=== PATIENT | male | born 1950 | race Caucasian/White ===

== ENCOUNTER → 2016-05-23 | Outpatient (REF) | payer MEDICARE, OTHER ==
[~2016-05-23] MED LIST: ACET-654 PO; ALBU83IN INH; ALLO300T2 PO; ASPI32ECTA PO; ATAC16TA PO; ATEN25TA OR; ATEN25TA PO; ATOR1TAB21 PO; BENA25CA2 PO; BENA25CA4 PO; BISAC5TA PO; COLC0.6T34 PO; ECOT325T5 OR; FLEC100T2 PO; FLEC1TAB PO; FLEC50TA2 OR; LIPI20TA PO; NEXI40CA PO; PRED20TA PO; PRIL20CA9 PO; SPIR25TA2 PO; SUCR1TA PO; XARE20TA PO; ZANT150T PO; ZOFR8TAB PO; ZYLO300T4 PO
[2016-05-23 14:17] LABS: MICROSCOPIC INDICATED? MAN NO (NO)
== END | disposition home or self-care (01) ==
LOC: M LAB REF 13:26
PROVIDERS: ATTEND Internal Medicine Cardiovascular Disease
DX: I11.9 Hypertensive heart disease without heart failure (principal)

== ENCOUNTER → 2016-06-13 | Day surgery (SDC) | payer MEDICARE, OTHER ==
[~2016-06-13] VITALS: Ht 172.7 cm; Wt 117.9 kg
[~2016-06-13] MED LIST changes: +ACETAMINOPHEN 325 MG TAB PO PRN; +ACETYLCHOLINE OPHTH SOLN 1% 2ML As Ordered ONE; +AcetaZOLAMIDE 500 MG ER CAP PO ONE; +BSS with VANC/TOB/EPI for EYE CASES IR ONE; +CEFUROXIME 1MG/0.1ML INTRACAMERAL INJ As Ordered ONE; +CYCLOPENTOLATE 2% OPHTH SOLN OD ONE; +D5W/0.2% SODIUM CHLORIDE 250 ML IV SCH; +HEALON DUET (HEALON 10MG/ML 0.55ML & HEALON ENDOCOAT 30MG/ML 0.85ML) As Ordered ONE; +HEALON DUET (HEALON 10MG/ML 0.55ML & HEALON ENDOCOAT 30MG/ML 0.85ML) XX ONE; +KETOROLAC 0.5% OPHTH SOLN OD ONE; +LIDOCAINE 0.75%/EPINEPHRINE 0.025% IN BSS 1ML SYR INTRACAMERAL (OR ONLY) As Ordered ONE; +LIDOCAINE 1% SDV 5 ML VIAL As Ordered ONE; +LIDOCAINE 1% SDV 5 ML VIAL XX ONE; +LIDOCAINE 4% INJ 5 ML AMP OU ONE; +MIDAZOLAM INJ 2 MG/2 ML VIAL (J2250) As Ordered ONE; +MOXIFLOXACIN IN BSS 0.25MG/0.25ML INTRACAMERAL INJ (OR EYE ONLY)(J2280) As Ordered ONE; +MOXIFLOXACIN IN BSS 0.25MG/0.25ML INTRACAMERAL INJ (OR EYE ONLY)(J2280) ICAM ONE; +OFLOXACIN 0.3 % (OCUFLOX) OPTH SOL 5ML OD ONE; +PHENYLEPHRINE 2.5% OPHTH SOL 2ML OD ONE; +POVIDONE-IODINE 5% OPHTH PREP SOL 30ML As Ordered ONE; +PROPARACAINE 0.5% OPHTH SOL 15ML OD PRN; +TRIAMCINOLONE PRES FR 40 MG/ML 1ML(TRIESENCE)(OR EYE ONLY)(J3300 PER 1MG) As Ordered ONE; +TRIAMCINOLONE PRES FR 40 MG/ML 1ML(TRIESENCE)(OR EYE ONLY)(J3300 PER 1MG) IO ONE; +TRIMETHOBENZAMIDE 300 MG CAP PO PRN; +TROPICAMIDE 1% OPHTH SOLN 2 ML OD ONE; +fentaNYL 100 MCG/2 ML INJECTION (J3010) As Ordered ONE
[2016-06-13 08:35] VITALS: BP 120/62
--- NOTE | 2016-06-13 13:40 | RO ---
DATE OF PROCEDURE: 06/13/2016 PREPROCEDURE DIAGNOSIS: Glare in right eye. POSTPROCEDURE DIAGNOSIS: Glare in right eye. PROCEDURE: IOL lens exchange, right eye. SURGEON: Kyle Mendes MD MEDICAL INFORMATION OFFICER: None. COMPLICATIONS: None. PROCEDURE IN DETAIL: The patient was brought to the operating room and laid in supine position. The right eye was prepped and draped in a sterile fashion for opthalmic surgery and the lid speculum was placed. Side port incision was made and EndoCoat was injected into the anterior chamber. Temporal clear corneal incision was made with a 2.5 mm Keratome and was extended to 2.7. Healon was used slowly to create a plane of cleavage between the anterior and posterior capsule and behind the lens and the posterior capsule. Once that was accomplished, the eyeball was rotated within the capsular bag gently and then prolapsed into the anterior chamber. With the help of the lens curette, the lens was divided into two pieces and retracted from the temporal clear corneal incision. Healon was placed in the capsular bag and the intraocular lens PCB00 +21.0 was then placed into the capsular bag. Excess viscoelastic was aspirated. The lid speculum was removed, and the patient was returned to the recovery room in stable condition after putting intracameral moxifloxacin 0.1 mL and subtenon injection of Kenalog.
== END | disposition home or self-care (01) ==
LOC: M SDC 06:05
PROVIDERS: ATTEND Ophthalmology
DX: H53.71 Glare sensitivity (principal); I48.91 Unspecified atrial fibrillation; E78.5 Hyperlipidemia, unspecified; M10.9 Gout, unspecified; F32.9 Major depressive disorder, single episode, unspecified; F41.9 Anxiety disorder, unspecified; R06.83 Snoring; G47.33 Obstructive sleep apnea (adult) (pediatric); Z79.899 Other long term (current) drug therapy
CPT/HCPCS: 66986; J2250; J2280; J3010; J3300; V2632

== ENCOUNTER → 2016-11-15 | Outpatient (CLI) | payer MEDICARE, OTHER ==
[~2016-11-15] MED LIST changes: -ACETAMINOPHEN 325 MG TAB PO PRN; -ACETYLCHOLINE OPHTH SOLN 1% 2ML As Ordered ONE; +ASPI325T24 PO; -ASPI32ECTA PO; -AcetaZOLAMIDE 500 MG ER CAP PO ONE; -BSS with VANC/TOB/EPI for EYE CASES IR ONE; -CEFUROXIME 1MG/0.1ML INTRACAMERAL INJ As Ordered ONE; -CYCLOPENTOLATE 2% OPHTH SOLN OD ONE; -D5W/0.2% SODIUM CHLORIDE 250 ML IV SCH; -HEALON DUET (HEALON 10MG/ML 0.55ML & HEALON ENDOCOAT 30MG/ML 0.85ML) As Ordered ONE; -HEALON DUET (HEALON 10MG/ML 0.55ML & HEALON ENDOCOAT 30MG/ML 0.85ML) XX ONE; -KETOROLAC 0.5% OPHTH SOLN OD ONE; -LIDOCAINE 0.75%/EPINEPHRINE 0.025% IN BSS 1ML SYR INTRACAMERAL (OR ONLY) As Ordered ONE; -LIDOCAINE 1% SDV 5 ML VIAL As Ordered ONE; -LIDOCAINE 1% SDV 5 ML VIAL XX ONE; -LIDOCAINE 4% INJ 5 ML AMP OU ONE; -MIDAZOLAM INJ 2 MG/2 ML VIAL (J2250) As Ordered ONE; -MOXIFLOXACIN IN BSS 0.25MG/0.25ML INTRACAMERAL INJ (OR EYE ONLY)(J2280) As Ordered ONE; -MOXIFLOXACIN IN BSS 0.25MG/0.25ML INTRACAMERAL INJ (OR EYE ONLY)(J2280) ICAM ONE; -OFLOXACIN 0.3 % (OCUFLOX) OPTH SOL 5ML OD ONE; -PHENYLEPHRINE 2.5% OPHTH SOL 2ML OD ONE; -POVIDONE-IODINE 5% OPHTH PREP SOL 30ML As Ordered ONE; -PROPARACAINE 0.5% OPHTH SOL 15ML OD PRN; -TRIAMCINOLONE PRES FR 40 MG/ML 1ML(TRIESENCE)(OR EYE ONLY)(J3300 PER 1MG) As Ordered ONE; -TRIAMCINOLONE PRES FR 40 MG/ML 1ML(TRIESENCE)(OR EYE ONLY)(J3300 PER 1MG) IO ONE; -TRIMETHOBENZAMIDE 300 MG CAP PO PRN; -TROPICAMIDE 1% OPHTH SOLN 2 ML OD ONE; -fentaNYL 100 MCG/2 ML INJECTION (J3010) As Ordered ONE
[2016-11-15 16:48] LABS: MEAN CORPUSCULAR HEMOGLOBIN 20.2 pg (27.0-33.0); MEAN CORPUSCULAR HGB CONC 30.7 g/dl (32.0-36.5); MEAN CORPUSCULAR VOLUME 65.8 fl (80.0-96.0); RED CELL DISTRIBUTION WIDTH 15.8 % (11.5-14.5); WHITE BLOOD COUNT 13.8 K/mm3 (4.0-10.0)
[2016-11-15 17:20] LABS: ALBUMIN 3.5 GM/DL (3.2-5.2); ALBUMIN/GLOBULIN RATIO 0.97 (1.00-1.93); ALKALINE PHOSPHATASE 58 U/L (45-117); ALT/SGPT 27 U/L (12-78); AMYLASE 96 U/L (25-115); ANION GAP 7 MEQ/L (8-16); AST/SGOT 16 U/L (15-37); BILIRUBIN,TOTAL 0.5 MG/DL (0.2-1.0); BLOOD UREA NITROGEN 13 MG/DL (7-18); CALCIUM LEVEL 8.9 MG/DL (8.8-10.2); CARBON DIOXIDE LEVEL 30 MEQ/L (21-32); CHLORIDE LEVEL 102 MEQ/L (98-107); CHOLESTEROL LEVEL 97 MG/DL (<200); CREATININE FOR GFR 0.97 MG/DL (0.70-1.30); GLOMERULAR FILTRATION RATE > 60.0 (>49); GLUCOSE, FASTING 105 MG/DL (80-110); POTASSIUM SERUM 4.7 MEQ/L (3.5-5.1); SODIUM LEVEL 139 MEQ/L (136-145); TOTAL PROTEIN 7.1 GM/DL (6.4-8.2); TRIGLYCERIDES LEVEL 107 MG/DL (<150)
[2016-11-15 21:40] LABS: BASOPHILS 2 % (0-4); EOSINOPHILS 4 % (0-5)
[2016-11-15 21:41] LABS: ANISOCYTOSIS 2+; MICROCYTOSIS 3+
[2016-11-15 21:42] LABS: HYPOCHROMASIA 1+
== END ==
LOC: M LAB 16:00
PROVIDERS: ATTEND Family Medicine
DX: R10.30 Lower abdominal pain, unspecified (principal); E78.5 Hyperlipidemia, unspecified

== ENCOUNTER → 2016-11-16 | Outpatient (CLI) | payer MEDICARE, OTHER ==
[~2016-11-16] MED LIST changes: +GASTROGRAFIN SOLUTION 30ML (Q9963) As Ordered ONE; +ISOVUE-370 76% 100ML VIAL (Q9967) As Ordered ONE
--- NOTE | 2016-11-16 13:56 | REP ---
CT ABDOMEN PELVIS WITH CONTRAST: 11/16/2016 CLINICAL HISTORY: Low abdominal pain, unspecified. Sided now more towards the right in the lower abdomen and pelvis. COMPARISON: 01/15/2012 CT scan at [facility]. TECHNIQUE: Oral Gastrografin mixture 10 mL in 290 mL of flavored water for two doses per our bowel contrast protocol with scanning through the abdomen. After bolus of 100 mL of Isovue 370 scanning through the abdomen pelvis with coronal and sagittal reconstructions were provided. FINDINGS: Lung bases show diffuse and scattered right and left lower lung zone ground-glass opacities and other fibrotic changes from his known pulmonary fibrosis. Heart size unchanged. There is no pericardial thickening or effusion. I see no hiatal hernia. There are calcifications in the mitral annulus. Some coronary calcifications suggested. On the noncontrast study, I see no definite fatty infiltration of the liver. There is no hepatomegaly, splenomegaly, focal hepatic lesion, biliary dilatation nor adjacent ascites. Gallbladder without calcified stone or mass. Stomach grossly intact. Pancreas without mass or adjacent inflammatory change. The aorta has atherosclerotic calcification without aneurysm. There are a few scattered periaortic lymph nodes without pathologic sized nodes there or in the retroperitoneum/mesentery. Adrenal glands are normal. Kidneys show a few cysts and lobation. No stone or hydronephrosis and no hydroureter or ureteral stone on either side to the bladder. Small bowel loops are not dilated. Fluid and/or contrast filling but no inflammatory changes , bowel wall thickening or edema in the adjacent mesentery. Stool and gas scattered in the colon without signs of colitis, stricture or mass. No diverticulosis in the right or transverse colon and just a couple of scattered diverticula in the left colon in the abdomen proper. Lung window review shows no free air or perforation. No abnormal fluid collection in the right abdomen to suggest abscess. Bone windows show some degenerative disc changes lower thoracic spine, greater than lumbar with anterolisthesis L4 on 5 by a few millimeters due to facet arthropathy. No spondylolysis. Visualized ribs intact. CT PELVIS. The bony hips, pelvis, SI joints and lumbosacral junction show minor degenerative change. No fracture or destructive lesion. No distal ureteral dilatation or stone. There is no ventral or inguinal hernia. Omental fat in the inguinal canals bilaterally is small. No bowel herniation. The bladder without wall thickening, stone or mass. Prostate is enlarged with a few small calcifications. No pelvic lymphadenopathy. The distal left colon and proximal sigmoid shows some diverticulosis without diverticulitis. There is no colitis or diverticulitis in the mid to distal sigmoid or rectum. Some scarring in the subcutaneous fat deep pelvis of the suprapubic region. This is not much changed from the 2012 CT study. No inguinal adenopathy. The terminal ileum was contrast filled and unremarkable. Appendix is seen and normal. No periappendiceal inflammatory changes or pericecal adenopathy. IMPRESSION: 1. Some scattered diverticula distal left colon and sigmoid but no signs of diverticulitis or colitis. No abscess, ascites, adenopathy or free air. 2. Appendix is normal as is the terminal ileum. The small bowel loops unremarkable. 3. Solid organs in the upper abdomen along with the gallbladder and stomach unremarkable. There is some scarring in the suprapubic subcutaneous fat, unchanged from the 2012 study. Signed by Shaquille Marshall MD 11/16/2016 10:19 P
== END ==
LOC: M RAD 10:58
PROVIDERS: ATTEND Family Medicine
DX: R10.30 Lower abdominal pain, unspecified (principal); K57.30 Diverticulosis of large intestine without perforation or abscess without bleeding
CPT/HCPCS: 74178; Q9963; Q9967

== ENCOUNTER → 2017-01-14 | Outpatient (CLI) | payer MEDICARE, OTHER ==
[~2017-01-14] MED LIST changes: -GASTROGRAFIN SOLUTION 30ML (Q9963) As Ordered ONE; -ISOVUE-370 76% 100ML VIAL (Q9967) As Ordered ONE
[2017-01-14 14:35] LABS: BLOOD UREA NITROGEN 17 MG/DL (7-18); CREATININE FOR GFR 0.92 MG/DL (0.70-1.30); GLOMERULAR FILTRATION RATE > 60.0 (>49)
== END ==
LOC: M LAB 13:29
PROVIDERS: ATTEND Internal Medicine Pulmonary Disease
DX: J84.112 Idiopathic pulmonary fibrosis (principal)

== ENCOUNTER 2017-09-08 08:10 | Emergency (ER) | payer MEDICARE, OTHER ==
[2017-09-08 09:09] LABS: BASO # 0.1 10^3/uL (0.0-0.2); BASO % 0.4 % (0.0-1.0); EOS % 0.2 % (0.0-3.0); HEMATOCRIT 48.1 % (42.0-52.0); HEMOGLOBIN 14.5 g/dl (13.5-17.5); IMMATURE GRANULOCYTE % 0.8 % (0-3.0); LYMPH # 4.4 10^3/uL (1.5-4.5); LYMPH % 33.3 % (24.0-44.0); MEAN CORPUSCULAR HEMOGLOBIN 19.8 pg (27.0-33.0); MEAN CORPUSCULAR HGB CONC 30.1 g/dl (32.0-36.5); MEAN CORPUSCULAR VOLUME 65.7 fl (80.0-96.0); MONO # 0.9 10^3/uL (0.0-0.8); NEUTROPHILS # 7.7 10^3/uL (1.8-7.7); NEUTROPHILS % 58.3 % (36.0-66.0); PLATELET COUNT, AUTOMATED 194 10^3/uL (150-450); RED BLOOD COUNT 7.32 10^6/uL (4.30-6.10); RED CELL DISTRIBUTION WIDTH 19.3 % (11.5-14.5); WHITE BLOOD COUNT 13.2 10^3/uL (4.0-10.0)
[2017-09-08 09:37] LABS: ANION GAP 7 MEQ/L (8-16); BLOOD UREA NITROGEN 28 MG/DL (7-18); CALCIUM LEVEL 8.4 MG/DL (8.8-10.2); CARBON DIOXIDE LEVEL 26 MEQ/L (21-32); CHLORIDE LEVEL 107 MEQ/L (98-107); CPK CREATINE PHOSPHOKINASE 195 U/L (39-308); CREATININE FOR GFR 1.02 MG/DL (0.70-1.30); GLOMERULAR FILTRATION RATE > 60.0 (>49); GLUCOSE, FASTING 154 MG/DL (70-100); MAGNESIUM LEVEL 2.1 MG/DL (1.8-2.4); POTASSIUM SERUM 4.5 MEQ/L (3.5-5.1); SODIUM LEVEL 140 MEQ/L (136-145); TROPONIN I < 0.02 NG/ML (< 0.10)
[2017-09-08 09:43] LABS: CK-MB VALUE MASS 4.9 NG/ML (<3.6); MB/CK RELATIVE INDEX 2.51 (< OR =4)
[2017-09-08] MEDS: NS 500 ML IV (09:58)
== END 2017-09-08 10:54 | disposition home or self-care (01) ==
LOC: M ED 08:10
DX: E86.0 Dehydration (principal); I48.92 Unspecified atrial flutter; J44.9 Chronic obstructive pulmonary disease, unspecified; K21.9 Gastro-esophageal reflux disease without esophagitis; M10.9 Gout, unspecified; M19.90 Unspecified osteoarthritis, unspecified site; E66.9 Obesity, unspecified; Z79.899 Other long term (current) drug therapy; Z79.82 Long term (current) use of aspirin
CPT/HCPCS: 71045

== ENCOUNTER → 2017-12-27 | Outpatient (CLI) | payer MEDICARE, OTHER ==
[2017-12-27 11:06] LABS: BASO # 0.1 10^3/uL (0.0-0.2); BASO % 0.7 % (0.0-1.0); HEMATOCRIT 47.3 % (42.0-52.0); HEMOGLOBIN 13.9 g/dl (13.5-17.5); IMMATURE GRANULOCYTE % 1.4 % (0-3.0); LYMPH # 3.4 10^3/uL (1.5-4.5); MEAN CORPUSCULAR HEMOGLOBIN 19.8 pg (27.0-33.0); MEAN CORPUSCULAR HGB CONC 29.4 g/dl (32.0-36.5); MEAN CORPUSCULAR VOLUME 67.3 fl (80.0-96.0); MONO # 0.9 10^3/uL (0.0-0.8); MONO % 8.6 % (0.0-5.0); NEUTROPHILS # 6.3 10^3/uL (1.8-7.7); NEUTROPHILS % 58.3 % (36.0-66.0); PLATELET COUNT, AUTOMATED 181 10^3/uL (150-450); RED BLOOD COUNT 7.03 10^6/uL (4.30-6.10); RED CELL DISTRIBUTION WIDTH 19.1 % (11.5-14.5); WHITE BLOOD COUNT 10.9 10^3/uL (4.0-10.0)
[2017-12-27 11:34] LABS: ANION GAP 6 MEQ/L (8-16); BLOOD UREA NITROGEN 12 MG/DL (7-18); CALCIUM LEVEL 8.8 MG/DL (8.8-10.2); CARBON DIOXIDE LEVEL 28 MEQ/L (21-32); CHLORIDE LEVEL 104 MEQ/L (98-107); GLOMERULAR FILTRATION RATE > 60.0 (>49); GLUCOSE, FASTING 149 MG/DL (70-100); SODIUM LEVEL 138 MEQ/L (136-145)
== END ==
LOC: M LAB 10:14
DX: Z01.810 Encounter for preprocedural cardiovascular examination (principal)
CPT/HCPCS: 80048

== ENCOUNTER 2018-01-02 06:01 | Inpatient (IN) | payer MEDICARE, OTHER ==
[2018-01-02] MEDS ORDERED: ONDANSETRON 4MG/2ML VIAL (J2405) As Ordered ×2 (07:09→12:59)
[2018-01-02] MEDS ORDERED: LIDOCAINE 2% INJ 100 MG/5 ML SDV (FOR ANES.) As Ordered (07:09)
[2018-01-02] MEDS ORDERED: dexameTHASONE 4 MG/ML 1ML VIAL (J1100) As Ordered (07:09)
[2018-01-02] MEDS ORDERED: ROCURONIUM BROMIDE 50 MG/5 ML VIAL As Ordered ×2 (07:09→08:17)
[2018-01-02] MEDS ORDERED: PROPOFOL 200 MG/20 ML VIAL As Ordered (07:09)
[2018-01-02] MEDS ORDERED: HYDROmorphone HCL 2 MG/ML 1ML VIAL (J1170) As Ordered (07:13)
[2018-01-02] MEDS ORDERED: fentaNYL 100 MCG/2 ML INJECTION (J3010) As Ordered ×2 (07:13→13:00)
[2018-01-02] MEDS ORDERED: MIDAZOLAM INJ 2 MG/2 ML VIAL (J2250) As Ordered (07:13)
[2018-01-02] MEDS ORDERED: KETAMINE HCL 200 MG/20 ML VIAL As Ordered (07:13)
[2018-01-02] MEDS: ALVIMOPAN 12 MG CAPSULE (ENTEREG) PO ×2 (07:20→20:18)
[2018-01-02] MEDS: LR 1,000 ML IV ×4 (07:21→14:26)
[2018-01-02] MEDS: cefoTEtan DISODIUM 2 GM in D5W MINI-BAG PLUS 50 ML IV (07:52)
[2018-01-02] MEDS ORDERED: GLYCOPYRROLATE INJ 0.2 MG/ML 2 ML VIAL As Ordered (08:27)
[2018-01-02] MEDS ORDERED: PHENYLephrine HCL 500 MCG/5 ML (100MCG/ML) SYRINGE (J2370) As Ordered ×3 (08:28)
[2018-01-02] MEDS ORDERED: ePHEDrine SULFATE 25 MG/5 ML(5MG/ML) SYRINGE As Ordered ×2 (08:28)
[2018-01-02] MEDS ORDERED: PHENYLEPHRINE INJ 10MG/ML VIAL (J2370) As Ordered ×2 (08:28)
[2018-01-02] MEDS: BUPIVACAINE HCL 0.25% 30 ML VIAL As Ordered ×2 (08:29→12:40)
[2018-01-02] MEDS ORDERED: SUGAMMADEX SODIUM 500 MG/5 ML VIAL (BRIDION) As Ordered (09:18)
[2018-01-02] MEDS ORDERED: ONDANSETRON 4MG/2ML VIAL (J2405) IV (12:45)
[2018-01-02] MEDS ORDERED: ACETAMINOPHEN TAB 650MG DOSE (2X325MG) PO (12:45)
[2018-01-02] MEDS ORDERED: MORPHINE 4 MG/ML 1ML VIAL/SYRINGE (J2270) IV ×2 (12:45)
[2018-01-02] MEDS: ONDANSETRON 4MG/2ML VIAL (J2405) IV (13:00)
[2018-01-02] MEDS: NORCO, ANEXSIA 5/325MG TABLET (HYDROcodone/ACETAMINOPHEN) PO ×3 (13:00→13:30)
[2018-01-02] MEDS ORDERED: NORCO, ANEXSIA 5/325MG TABLET (HYDROcodone/ACETAMINOPHEN) As Ordered (13:00)
[2018-01-02] MEDS: fentaNYL 100 MCG/2 ML INJECTION (J3010) IV ×4 (13:00→13:15)
[2018-01-02] MEDS: KETOROLAC 30 MG/ML VIAL (J1885) IV ×2 (13:33→23:09)
[2018-01-02] MEDS: METOCLOPRAMIDE INJ 10MG/2ML VIAL (J2765) IV (14:26)
[2018-01-02] MEDS: ENOXAPARIN 40 MG/0.4 ML SYRINGE (J1650) SC (20:18)
[2018-01-02] MEDS: ATORVASTATIN 20 MG TAB PO (20:19)
[2018-01-02] MEDS: OMEPRAZOLE 20 MG CAP PO (20:19)
[2018-01-02] MEDS: FLECAINIDE 50MG TABLET PO (20:20)
[2018-01-02] MEDS: ATENOLOL 25 MG TAB PO (20:20)
[2018-01-02] MEDS: CANDESARTAN 16 MG TABLET PO (20:20)
[2018-01-03] MEDS: KETOROLAC 30 MG/ML VIAL (J1885) IV ×2 (04:45→12:15)
[2018-01-03 07:06] LABS: BASO % 0.2 % (0.0-1.0); HEMATOCRIT 38.9 % (42.0-52.0); HEMOGLOBIN 11.9 g/dl (13.5-17.5); IMMATURE GRANULOCYTE % 0.8 % (0-3.0); LYMPH # 2.9 10^3/uL (1.5-4.5); LYMPH % 17.3 % (24.0-44.0); MEAN CORPUSCULAR HEMOGLOBIN 19.9 pg (27.0-33.0); MEAN CORPUSCULAR HGB CONC 30.6 g/dl (32.0-36.5); MEAN CORPUSCULAR VOLUME 64.9 fl (80.0-96.0); MONO # 1.2 10^3/uL (0.0-0.8); MONO % 7.1 % (0.0-5.0); NEUTROPHILS # 12.7 10^3/uL (1.8-7.7); NEUTROPHILS % 74.6 % (36.0-66.0); PLATELET COUNT, AUTOMATED 174 10^3/uL (150-450); RED BLOOD COUNT 5.99 10^6/uL (4.30-6.10); RED CELL DISTRIBUTION WIDTH 18.4 % (11.5-14.5)
[2018-01-03 07:32] LABS: ANION GAP 7 MEQ/L (8-16); BLOOD UREA NITROGEN 13 MG/DL (7-18); CARBON DIOXIDE LEVEL 27 MEQ/L (21-32); CHLORIDE LEVEL 103 MEQ/L (98-107); CREATININE FOR GFR 0.87 MG/DL (0.70-1.30); GLOMERULAR FILTRATION RATE > 60.0 (>49); GLUCOSE, FASTING 111 MG/DL (70-100); POTASSIUM SERUM 4.1 MEQ/L (3.5-5.1); SODIUM LEVEL 137 MEQ/L (136-145)
[2018-01-03] MEDS: LR 1,000 ML IV (08:34)
[2018-01-03] MEDS: ALVIMOPAN 12 MG CAPSULE (ENTEREG) PO ×2 (09:16→20:49)
[2018-01-03] MEDS: INFLUENZA VIRUS VACCINE HIGH DOSE 0.5 ML SYRINGE (90662) IM (09:18)
[2018-01-03] MEDS: NORCO, ANEXSIA 5/325MG TABLET (HYDROcodone/ACETAMINOPHEN) PO ×2 (16:46→22:06)
[2018-01-03] MEDS: FLECAINIDE 50MG TABLET PO (20:48)
[2018-01-03] MEDS: CANDESARTAN 16 MG TABLET PO (20:48)
[2018-01-03] MEDS: OMEPRAZOLE 20 MG CAP PO (20:48)
[2018-01-03] MEDS: ATORVASTATIN 20 MG TAB PO (20:49)
[2018-01-03] MEDS: ATENOLOL 25 MG TAB PO (20:49)
[2018-01-03] MEDS: ENOXAPARIN 40 MG/0.4 ML SYRINGE (J1650) SC (20:50)
[2018-01-03] MEDS: ALPRAZolam 0.5 MG TAB PO (22:06)
[2018-01-04] MEDS: NORCO, ANEXSIA 5/325MG TABLET (HYDROcodone/ACETAMINOPHEN) PO ×4 (04:12→20:40)
[2018-01-04] MEDS: ALVIMOPAN 12 MG CAPSULE (ENTEREG) PO ×2 (08:09→20:39)
[2018-01-04] MEDS: FLECAINIDE 50MG TABLET PO (20:38)
[2018-01-04] MEDS: ATENOLOL 25 MG TAB PO (20:39)
[2018-01-04] MEDS: OMEPRAZOLE 20 MG CAP PO (20:39)
[2018-01-04] MEDS: CANDESARTAN 16 MG TABLET PO (20:39)
[2018-01-04] MEDS: ATORVASTATIN 20 MG TAB PO (20:39)
[2018-01-04] MEDS: ALPRAZolam 0.5 MG TAB PO (20:40)
[2018-01-04] MEDS: ENOXAPARIN 40 MG/0.4 ML SYRINGE (J1650) SC (20:40)
[2018-01-05] MEDS: NORCO, ANEXSIA 5/325MG TABLET (HYDROcodone/ACETAMINOPHEN) PO ×2 (04:43→08:23)
[2018-01-05 07:37] LABS: BASO # 0.1 10^3/uL (0.0-0.2); BASO % 0.5 % (0.0-1.0); EOS % 0.1 % (0.0-3.0); HEMATOCRIT 43.9 % (42.0-52.0); HEMOGLOBIN 13.1 g/dl (13.5-17.5); IMMATURE GRANULOCYTE % 0.7 % (0-3.0); LYMPH # 3.5 10^3/uL (1.5-4.5); LYMPH % 25.5 % (24.0-44.0); MEAN CORPUSCULAR HEMOGLOBIN 19.7 pg (27.0-33.0); MEAN CORPUSCULAR HGB CONC 29.8 g/dl (32.0-36.5); MEAN CORPUSCULAR VOLUME 65.9 fl (80.0-96.0); MONO # 1.1 10^3/uL (0.0-0.8); NEUTROPHILS # 8.9 10^3/uL (1.8-7.7); NEUTROPHILS % 65.2 % (36.0-66.0); PLATELET COUNT, AUTOMATED 178 10^3/uL (150-450); RED BLOOD COUNT 6.66 10^6/uL (4.30-6.10); RED CELL DISTRIBUTION WIDTH 18.6 % (11.5-14.5); WHITE BLOOD COUNT 13.7 10^3/uL (4.0-10.0)
[2018-01-05 07:59] LABS: ANION GAP 8 MEQ/L (8-16); BLOOD UREA NITROGEN 14 MG/DL (7-18); CALCIUM LEVEL 8.3 MG/DL (8.8-10.2); CARBON DIOXIDE LEVEL 27 MEQ/L (21-32); CHLORIDE LEVEL 105 MEQ/L (98-107); CREATININE FOR GFR 0.95 MG/DL (0.70-1.30); GLOMERULAR FILTRATION RATE > 60.0 (>49); GLUCOSE, FASTING 119 MG/DL (70-100); SODIUM LEVEL 140 MEQ/L (136-145)
[2018-01-05] MEDS: ALVIMOPAN 12 MG CAPSULE (ENTEREG) PO (08:22)
== END 2018-01-05 11:45 | disposition home or self-care (01) | DRG 330 ==
LOC: M OR 06:01 → M PED 14:12
PROC: 0DTN4ZZ Resection of Sigmoid Colon, Percutaneous Endoscopic Approach (ICD-10-PCS; principal; 2018-01-02 07:30)
PROC: 0D1 Gastrointestinal System, Bypass (ICD-10-PCS; 2018-01-02 07:30)
DX: K57.30 Diverticulosis of large intestine without perforation or abscess without bleeding (principal); Z68.41 Body mass index [BMI] 40.0-44.9, adult; I42.2 Other hypertrophic cardiomyopathy; I10 Essential (primary) hypertension; F41.9 Anxiety disorder, unspecified; I48.0 Paroxysmal atrial fibrillation; M10.9 Gout, unspecified; G47.33 Obstructive sleep apnea (adult) (pediatric); E66.01 Morbid (severe) obesity due to excess calories; J84.112 Idiopathic pulmonary fibrosis; Z79.51 Long term (current) use of inhaled steroids; Z79.82 Long term (current) use of aspirin; Z79.01 Long term (current) use of anticoagulants; Z79.899 Other long term (current) drug therapy; Z98.41 Cataract extraction status, right eye; Z98.42 Cataract extraction status, left eye

== ENCOUNTER 2018-08-10 13:18 | Emergency (ER) | payer MEDICARE, OTHER ==
[~2018-08-10] VITALS: Ht 172.7 cm; Wt 125.9 kg
[~2018-08-10 13:18] MED LIST changes: +AK-T0.3S OU; +ALPR1TAB3 PO; +ASPI-255 PO; -ASPI325T24 PO; +CAND16TA7 PO; +COLC1TAB13; +ELIQ5TAB PO; +ESOM1CAP5; +HYDR-3715 PO; +NEXI1CAP4 PO; +ONDA-227 PO; +SPIR-10 PO; -ZOFR8TAB PO; -ZYLO300T4 PO; +ZYLO300T6 PO
[2018-08-10] MEDS ORDERED: EPINEPHrine INJ 1 MG/ML 1ML AMP As Ordered ONE (13:30)
[2018-08-10] MEDS ORDERED: NS 500 ML IV ONE ×2 (13:30→14:30)
[2018-08-10] MEDS ORDERED: methylPREDNISolone INJ 125 MG/2 ML VIAL (J2930) IV ONE ×2 (13:30)
[2018-08-10] MEDS ORDERED: EPINEPHrine INJ 1 MG/ML 1ML AMP SC STA (13:34)
[2018-08-10] MEDS ORDERED: ONDANSETRON 4MG/2ML VIAL (J2405) As Ordered ONE (13:39)
[2018-08-10] MEDS ORDERED: ONDANSETRON 4MG/2ML VIAL (J2405) IV ONE (13:45)
[2018-08-10 15:31] VITALS: BP 115/60
[2018-08-10] MEDS ORDERED: PRED20TA PO (15:38)
[2018-08-10] MEDS ORDERED: EPIP0.3I2 IM (15:39)
== END 2018-08-10 15:53 | disposition home or self-care (01) ==
LOC: M ED 13:18
DX: L29.9 Pruritus, unspecified (principal); T78.2XXA Anaphylactic shock, unspecified, initial encounter; X58.XXXA Exposure to other specified factors, initial encounter; Y92.89 Other specified places as the place of occurrence of the external cause; I10 Essential (primary) hypertension; I48.91 Unspecified atrial fibrillation; J84.10 Pulmonary fibrosis, unspecified; Z79.899 Other long term (current) drug therapy; Z79.82 Long term (current) use of aspirin; Z79.01 Long term (current) use of anticoagulants
CPT/HCPCS: 93041; 94760; 96361; 96374; 96375; 99285; J2405; J2930

== ENCOUNTER → 2018-12-30 | Outpatient (CLI) | payer MEDICARE, OTHER ==
[~2018-12-30] MED LIST changes: +EPIP0.3I2 IM
[2018-12-30 15:10] LABS: HEMATOCRIT 46.3 % (42.0-52.0); HEMOGLOBIN 14.1 g/dl (13.5-17.5); MEAN CORPUSCULAR HEMOGLOBIN 20.4 pg (27.0-33.0); MEAN CORPUSCULAR HGB CONC 30.5 g/dl (32.0-36.5); MEAN CORPUSCULAR VOLUME 67.1 fl (80.0-96.0); PLATELET COUNT, AUTOMATED 165 10^3/uL (150-450); WHITE BLOOD COUNT 11.8 10^3/uL (4.0-10.0)
[2018-12-30 15:41] LABS: ALBUMIN 3.9 GM/DL (3.2-5.2); ALT/SGPT 44 U/L (12-78); BILIRUBIN,TOTAL 0.6 MG/DL (0.2-1.0); BLOOD UREA NITROGEN 31 MG/DL (7-18); CALCIUM LEVEL 9.4 MG/DL (8.8-10.2); CARBON DIOXIDE LEVEL 26 MEQ/L (21-32); CHLORIDE LEVEL 104 MEQ/L (98-107); CREATININE FOR GFR 1.16 MG/DL (0.70-1.30); GLOMERULAR FILTRATION RATE > 60.0 (>49); GLUCOSE, FASTING 140 MG/DL (70-100); POTASSIUM SERUM 5.1 MEQ/L (3.5-5.1); SODIUM LEVEL 138 MEQ/L (136-145); TOTAL PROTEIN 7.2 GM/DL (6.4-8.2); URIC ACID 6.2 MG/DL (3.5-7.2)
== END ==
LOC: M LAB 13:45
PROVIDERS: ATTEND Internal Medicine Cardiovascular Disease
DX: I48.0 Paroxysmal atrial fibrillation (principal)

== ENCOUNTER → 2019-01-13 | Outpatient (CLI) | payer MEDICARE, OTHER ==
[2019-01-13 15:35] LABS: FREE T3 2.4 PG/ML (2.2-4.0); THYROID STIMULATING HORMONE 1.89 uIU/ML (0.358-3.740)
[2019-01-16 00:06] LABS: DEHYDROEPIANDROSTERONE SULFATE 95.6 ug/dL (30.9-295.6)
== END ==
LOC: M LAB 13:52
PROVIDERS: ATTEND Anesthesiology Pain Medicine
DX: R53.83 Other fatigue (principal)

== ENCOUNTER → 2019-02-19 | Outpatient (REF) | payer MEDICARE, OTHER ==
[2019-02-19 14:12] LABS: BASO # 0.1 10^3/uL (0.0-0.2); BASO % 0.7 % (0.0-1.0); HEMATOCRIT 45.2 % (42.0-52.0); HEMOGLOBIN 13.3 g/dl (13.5-17.5); LYMPH % 26.4 % (24.0-44.0); MEAN CORPUSCULAR HGB CONC 29.4 g/dl (32.0-36.5); MEAN CORPUSCULAR VOLUME 67.9 fl (80.0-96.0); MONO # 1.1 10^3/uL (0.0-0.8); MONO % 7.1 % (0.0-5.0); NEUTROPHILS # 9.8 10^3/uL (1.5-8.5); NEUTROPHILS % 64.4 % (36.0-66.0); PLATELET COUNT, AUTOMATED 207 10^3/uL (150-450); RED BLOOD COUNT 6.66 10^6/uL (4.30-6.10); WHITE BLOOD COUNT 15.3 10^3/uL (4.0-10.0)
[2019-02-19 14:29] LABS: BLOOD UREA NITROGEN 23 MG/DL (7-18); CREATININE FOR GFR 1.07 MG/DL (0.70-1.30); GLOMERULAR FILTRATION RATE > 60.0 (>49)
== END ==
LOC: M LAB REF 13:30
PROVIDERS: ATTEND Internal Medicine Pulmonary Disease
DX: J84.112 Idiopathic pulmonary fibrosis (principal); Z01.812 Encounter for preprocedural laboratory examination

== ENCOUNTER → 2019-03-25 | Outpatient (CLI) | payer MEDICARE, OTHER ==
[~2019-03-25] MED LIST changes: +ISOVUE-370 76% 100ML VIAL (Q9967) As Ordered ONE
--- NOTE | 2019-03-25 11:34 | REP ---
CT CHEST WITH IV CONTRAST: HISTORY: Idiopathic pulmonary fibrosis. Interval decrease in total lung capacity on pulmonary function studies. Question active disease. Comparison chest CT studies are reviewed from January 17, 2017 and June 08, 2014. CT CONTRAST DOSE: 275 mL of intravenous Isovue [address] FINDINGS: There is a somewhat spiculated 9 mm nodular density in the superior segment of the left lower lobe seen on today's study page 46 of 108 in series 301. This is somewhat larger than on comparison study. No other pulmonary nodule or mass lesion is appreciated. There is postoperative suture line in the right lower lobe and there are areas of linear bandlike fibrosis in the upper lobes bilaterally. The upper lobes remain fairly clear otherwise. There are large areas of fairly advanced ground-glass opacity with a slight volume loss in the right lower lobe, left lower lobe, and lingular segment of the left upper lobe. There is some reticulation and minimal bronchiectasis in these affected regions as well. There are some pleural calcifications focally. These areas of nearly confluent ground-glass opacity are felt to be unchanged from the 2014 and 2016 prior studies. There is no evidence of pleural or pericardial effusion. No hilar or mediastinal mass or adenopathy is observed. There is some vascular calcification including left coronary artery vascular calcification. An accessory splenule is noted in the left upper quadrant of the abdomen. The visualized upper abdominal structures are otherwise unremarkable. No bony destructive lesion is seen. IMPRESSION: 1. Chronic confluent areas of mixed ground-glass opacity reticular changes with mild bronchiectasis in the lower lobes bilaterally and in the lingula and to a lesser extent right middle lobe. These are felt to be unchanged from 2016 and 2014 prior studies. 2. There is a somewhat spiculated gradually enlarging nodule 9 mm in diameter in the superior segment of the left lower lobe. Primary lung malignancy cannot be excluded. Consider histologic sampling versus PET/CT study. Electronically Signed by Brayan Lopez MD 03/25/2019 05:38 P
== END ==
LOC: M RAD 10:22
PROVIDERS: ATTEND Internal Medicine Pulmonary Disease
DX: J84.112 Idiopathic pulmonary fibrosis (principal)
CPT/HCPCS: 71260; Q9967

== ENCOUNTER → 2019-04-21 | Outpatient (CLI) | payer MEDICARE, OTHER ==
[~2019-04-21] MED LIST changes: -ISOVUE-370 76% 100ML VIAL (Q9967) As Ordered ONE
--- NOTE | 2019-04-22 15:45 | REP ---
PET/CT: History: Abnormal lung field finding. Comparisons: Comparison CT study of the chest from the March 25, 2019 showed a 9 mm somewhat spiculated appearing left lower lobe pulmonary nodule. The patient has a history of idiopathic pulmonary fibrosis. TECHNIQUE: 73 minutes following the intravenous injection of a 9.11 mCi dose of F-18 FDG, three-dimensional PET scintigraphy is acquired from the skull base to the proximal thighs. Triplanar noncontrast CT scanning is acquired through the same anatomic range for attenuation correction, and image registration with scan parameters optimized to minimize radiation exposure to the patient. PET scintigraphy and CT datasets were fused and displayed on a workstation with multiplanar and projection display capability. PET/CT Findings: There is discernible but nonhypermetabolic accumulation of radiotracer at the site of the left lower lobe pulmonary nodule. Maximum standard uptake value is only 1.76. In an area of relatively confluent fibrosis in the right lower lobe infrahilar region, there is mildly hypermetabolic uptake without evidence of mass. Maximum standard uptake value 4.09. Similarly, there is some discernible uptake and ground-glass opacity in the left lower lobe, maximum SUV 1.85 and lesser metabolic uptake is seen in the remainder of the ground-glass opacity in the right lower lobe, maximum SUV value 3.03. No hilar or mediastinal hypermetabolic uptake is seen. Head and neck soft tissues are unremarkable. In the abdomen and pelvis, there is normal hepatic, splenic, gastrointestinal, and genitourinary FDG accumulation. No abnormal abdominal or pelvic hypermetabolic uptake is seen. Impression: There is some mildly hypermetabolic uptake in the patient's known pulmonary fibrosis related ground-glass opacity infiltrates in the lung bases. The 9 mm nodule in the superior segment of the left lower lobe does not show hypermetabolic uptake. Follow-up is advised. Electronically Signed by Brayan Lopez MD 04/22/2019 04:45 P
== END ==
LOC: M PLARAD 14:25
PROVIDERS: ATTEND Internal Medicine Pulmonary Disease
DX: R91.1 Solitary pulmonary nodule (principal); R91.8 Other nonspecific abnormal finding of lung field
CPT/HCPCS: 78815; A9552

== ENCOUNTER → 2019-11-02 | Outpatient (CLI) | payer MEDICARE, OTHER ==
[2019-11-02 12:00] LABS: HEMATOCRIT 49.4 % (42.0-52.0); HEMOGLOBIN 14.5 g/dl (13.5-17.5); MEAN CORPUSCULAR HEMOGLOBIN 19.4 pg (27.0-33.0); MEAN CORPUSCULAR HGB CONC 29.4 g/dl (32.0-36.5); MEAN CORPUSCULAR VOLUME 66.2 fl (80.0-96.0); PLATELET COUNT, AUTOMATED 169 10^3/uL (150-450); RED BLOOD COUNT 7.46 10^6/uL (4.30-6.10); WHITE BLOOD COUNT 10.3 10^3/uL (4.0-10.0)
[2019-11-02 12:16] LABS: ALBUMIN 3.7 GM/DL (3.2-5.2); ALT/SGPT 26 U/L (12-78); BILIRUBIN,TOTAL 0.7 MG/DL (0.2-1.0); BLOOD UREA NITROGEN 19 MG/DL (7-18); CALCIUM LEVEL 8.7 MG/DL (8.8-10.2); CARBON DIOXIDE LEVEL 29 MEQ/L (21-32); CHLORIDE LEVEL 105 MEQ/L (98-107); CREATININE FOR GFR 0.94 MG/DL (0.70-1.30); GLOMERULAR FILTRATION RATE > 60.0 (>49); GLUCOSE, FASTING 126 MG/DL (70-100); POTASSIUM SERUM 4.5 MEQ/L (3.5-5.1); SODIUM LEVEL 140 MEQ/L (136-145); TOTAL PROTEIN 7.3 GM/DL (6.4-8.2)
[2019-11-02 12:18] LABS: INR 1.04; PROTHROMBIN TIME 13.3 SECONDS (11.8-14.0)
[2019-11-02 12:19] LABS: PARTIAL THROMBOPLASTIN TIME 34.3 SECONDS (25.0-38.4)
[2019-11-02 12:28] LABS: ERYTHROCYTE SEDIMENTATION RATE 1 mm/hr (0-20)
== END ==
LOC: M LAB 11:02
PROVIDERS: ATTEND Family Medicine
DX: Z01.818 Encounter for other preprocedural examination (principal)

== ENCOUNTER → 2019-11-02 | Outpatient (CLI) | payer MEDICARE, OTHER ==
[2019-11-02 11:59] LABS: BASO # 0.1 10^3/uL (0.0-0.2); BASO % 0.7 % (0.0-1.0); HEMATOCRIT 47.8 % (42.0-52.0); HEMOGLOBIN 14.2 g/dl (13.5-17.5); LYMPH # 3.5 10^3/uL (1.5-5.0); LYMPH % 33.9 % (24.0-44.0); MEAN CORPUSCULAR HEMOGLOBIN 19.5 pg (27.0-33.0); MEAN CORPUSCULAR HGB CONC 29.7 g/dl (32.0-36.5); MEAN CORPUSCULAR VOLUME 65.7 fl (80.0-96.0); MONO # 0.7 10^3/uL (0.0-0.8); MONO % 6.8 % (0.0-5.0); PLATELET COUNT, AUTOMATED 166 10^3/uL (150-450); RED BLOOD COUNT 7.28 10^6/uL (4.30-6.10); WHITE BLOOD COUNT 10.3 10^3/uL (4.0-10.0)
[2019-11-02 12:31] LABS: ALBUMIN 3.7 GM/DL (3.2-5.2); ALT/SGPT 27 U/L (12-78); BILIRUBIN,TOTAL 0.7 MG/DL (0.2-1.0); BLOOD UREA NITROGEN 19 MG/DL (7-18); CALCIUM LEVEL 8.6 MG/DL (8.8-10.2); CARBON DIOXIDE LEVEL 28 MEQ/L (21-32); CHLORIDE LEVEL 105 MEQ/L (98-107); CHOLESTEROL LEVEL 163 MG/DL (<200); CHOLESTEROL RISK RATIO 5.433 (<5); CREATININE FOR GFR 0.99 MG/DL (0.70-1.30); GLOMERULAR FILTRATION RATE > 60.0 (>49); GLUCOSE, FASTING 121 MG/DL (70-100); HDL CHOLESTEROL 30 MG/DL (>40); LDL CHOLESTEROL 109 MG/DL (<100); NON-HDL-C 133 MG/DL; NT-PRO BNP 15 PG/ML (<125); POTASSIUM SERUM 4.6 MEQ/L (3.5-5.1); SODIUM LEVEL 140 MEQ/L (136-145); TOTAL PROTEIN 7.3 GM/DL (6.4-8.2); TRIGLYCERIDES LEVEL 120 MG/DL (<150); URIC ACID 7.2 MG/DL (3.5-7.2)
--- NOTE | 2019-11-02 12:36 | REP ---
Clinical: Shortness of breath. Technique: PA and lateral. Comparison: 09/08/2017. Findings: Acute on chronic bilateral lower lobe infiltrates (left greater than right) noted. No obvious effusion. No pneumothorax. Stable cardiomegaly. Skeletal structures are intact. Impression: Acute on chronic bibasilar infiltrates/atelectasis. Electronically Signed by Gianfranco Garrett MD 11/02/2019 12:27 P
== END ==
LOC: M LAB 10:59
PROVIDERS: ATTEND Internal Medicine Pulmonary Disease
DX: Z01.818 Encounter for other preprocedural examination (principal); R91.8 Other nonspecific abnormal finding of lung field; I51.7 Cardiomegaly; I48.0 Paroxysmal atrial fibrillation; R94.31 Abnormal electrocardiogram [ECG] [EKG]; E78.2 Mixed hyperlipidemia; I42.8 Other cardiomyopathies; R06.02 Shortness of breath

== ENCOUNTER 2019-11-11 07:15 | Inpatient (IN) | payer MEDICARE, OTHER ==
[~2019-11-11] VITALS: Ht 172.7 cm; Wt 117.9 kg
[~2019-11-11 07:15] MED LIST changes: +ACETAMINOPHEN 500 MG TAB As Ordered ONE; +MIDAZOLAM INJ 2MG/2ML VIAL (J2250 PER 1MG) As Ordered ONE; +ceFAZolin 2 GM/D5W 50 ML IV BAG (J0690 PER 500MG) As Ordered ONE; +fentaNYL 100 MCG/2 ML INJECTION (J3010) As Ordered ONE
[2019-11-11] MEDS ORDERED: propofoL 200 MG/20 ML VIAL As Ordered ONE ×2 (07:18→08:57)
[2019-11-11] MEDS ORDERED: LIDOCAINE 2% 100MG/5ML SDV (FOR ANES.) As Ordered ONE (07:18)
[2019-11-11] MEDS ORDERED: EPINEPHrine INJ 1 MG/ML 1ML AMP As Ordered ONE (07:19)
[2019-11-11] MEDS ORDERED: BUPIVACAINE LIPOSOME/PF 1.3% 20ML VIAL (13.3MG/ML)(EXPAREL)(C9290 PER1MG) As Ordered ONE (07:19)
[2019-11-11] MEDS ORDERED: ceFAZolin 1GM VIAL (J0690 PER 500MG) As Ordered ONE (07:19)
[2019-11-11] MEDS ORDERED: BUPIVACAINE HCL 0.5% 10ML VIAL As Ordered ONE (07:19)
[2019-11-11] MEDS ORDERED: TRANEXAMIC ACID 100 MG/ML 10ML VIAL As Ordered ONE (07:19)
[2019-11-11] MEDS ORDERED: MIDAZOLAM INJ 2MG/2ML VIAL (J2250 PER 1MG) As Ordered ONE (08:01)
[2019-11-11] MEDS ORDERED: fentaNYL 100 MCG/2 ML INJECTION (J3010) As Ordered ONE (09:33)
[2019-11-11] MEDS ORDERED: PHENYLephrine HCL 500 MCG/5 ML (100MCG/ML) SYRINGE (J2370) As Ordered ONE (09:38)
[2019-11-11] MEDS ORDERED: ePHEDrine SULFATE 25 MG/5 ML(5MG/ML) SYRINGE As Ordered ONE (09:38)
[2019-11-11] MEDS ORDERED: ACETAMINOPHEN 500 MG TAB As Ordered ONE (11:40)
[2019-11-11] MEDS ORDERED: PERCOCET 5MG/325MG TAB As Ordered ONE ×3 (15:19→23:07)
[2019-11-11] MEDS ORDERED: ceFAZolin 2 GM/D5W 50 ML IV BAG (J0690 PER 500MG) As Ordered ONE ×2 (16:59→23:06)
[2019-11-11] MEDS ORDERED: EPINEPHrine INJ 1 MG/ML 1ML AMP ONE (20:06)
[2019-11-11] MEDS ORDERED: dexameTHASONE 10MG/1ML VIAL PRES.FREE (J1100 PER 1MG) ONE (20:06)
[2019-11-11] MEDS ORDERED: ROPIvacaine 0.5% 30ML INJECTION (J2795 PER 1MG) ONE (20:06)
[2019-11-11] MEDS ORDERED: MOM 30ML SUSPENSION UDC As Ordered ONE (21:32)
[2019-11-11] MEDS ORDERED: ASPIRIN 81 MG CHEW TABLET As Ordered ONE (21:33)
[2019-11-11] MEDS ORDERED: ALPRAZolam 0.5 MG TAB As Ordered ONE (21:35)
[2019-11-11] MEDS ORDERED: atenoloL 25 MG TAB As Ordered ONE (23:06)
[2019-11-12] MEDS ORDERED: ceFAZolin 2 GM/D5W 50 ML IV BAG (J0690 PER 500MG) ONE (07:46)
[2019-11-12] MEDS ORDERED: PERCOCET 5MG/325MG TAB As Ordered ONE ×4 (07:46→23:50)
[2019-11-12] MEDS ORDERED: PERCOCET 5MG/325MG TAB ONE ×4 (07:46→23:50)
[2019-11-12] MEDS ORDERED: ceFAZolin 2 GM/D5W 50 ML IV BAG (J0690 PER 500MG) As Ordered ONE (07:51)
[2019-11-12] MEDS ORDERED: MIRALAX *UNIT DOSE* 17GM PACKET ONE (13:55)
[2019-11-12] MEDS ORDERED: MIRALAX *UNIT DOSE* 17GM PACKET As Ordered ONE (13:55)
[2019-11-12] MEDS ORDERED: MOM 30ML SUSPENSION UDC As Ordered ONE (13:55)
[2019-11-12] MEDS ORDERED: MOM 30ML SUSPENSION UDC ONE (13:55)
[2019-11-12] MEDS ORDERED: MAGNESIUM CITRATE 300 ML BTL As Ordered ONE ×2 (13:56→18:48)
[2019-11-12] MEDS ORDERED: MAGNESIUM CITRATE 300 ML BTL ONE (18:46)
[2019-11-12] MEDS ORDERED: ALPRAZolam 0.5 MG TAB As Ordered ONE (22:13)
[2019-11-12] MEDS ORDERED: atenoloL 25 MG TAB ONE (22:13)
[2019-11-12] MEDS ORDERED: atenoloL 25 MG TAB As Ordered ONE (22:13)
[2019-11-12] MEDS ORDERED: ASPIRIN 81 MG CHEW TABLET As Ordered ONE (22:13)
[2019-11-12] MEDS ORDERED: ALPRAZolam 0.5 MG TAB ONE (22:13)
[2019-11-12] MEDS ORDERED: ASPIRIN 81 MG CHEW TABLET ONE (22:13)
[2019-11-13] MEDS ORDERED: PERCOCET 5MG/325MG TAB ONE ×2 (08:16→12:27)
[2019-11-13] MEDS ORDERED: PERCOCET 5MG/325MG TAB As Ordered ONE ×2 (08:16→12:27)
[2019-11-13] MEDS ORDERED: FLECAINIDE 50MG TABLET ONE (09:59)
[2019-11-13] MEDS ORDERED: CANDESARTAN 16 MG TABLET ONE (09:59)
--- NOTE | 2020-01-01 08:51 | REP ---
RIGHT KNEE SERIES: 2-VIEWS HISTORY: Postop. This report was delayed due to a protracted episode of network disruption experienced by this facility. FINDINGS: Lateral and AP radiographs demonstrate right knee arthroplasty components in good position relative to each other and their [place] bones. Anterior skin isaiah are seen. Periarticular soft tissue emphysema is noted. IMPRESSION: Status post right knee arthroplasty MTDD
[2020-01-02 14:47] LABS: HEMATOCRIT 43.3 % (42.0-52.0); HEMOGLOBIN 13.1 g/dl (13.5-17.5)
[2020-01-02 14:47] LABS: HEMATOCRIT 43.1 % (42.0-52.0); HEMOGLOBIN 13.1 g/dl (13.5-17.5); MEAN CORPUSCULAR HEMOGLOBIN 19.8 pg (27.0-33.0); MEAN CORPUSCULAR HGB CONC 30.4 g/dl (32.0-36.5); MEAN CORPUSCULAR VOLUME 65.2 fl (80.0-96.0); PLATELET COUNT, AUTOMATED 184 10^3/uL (150-450); RED BLOOD COUNT 6.61 10^6/uL (4.30-6.10); WHITE BLOOD COUNT 15.8 10^3/uL (4.0-10.0)
--- NOTE | 2020-01-06 15:52 | RO ---
Date of Operation: 11/11/2019 PREOPERATIVE DIAGNOSIS: Right knee degenerative arthritis. POSTOPERATIVE DIAGNOSIS: Right knee degenerative arthritis. PROCEDURE: Right total knee arthroplasty using a size 5 cruciate-retaining Attune femoral component cemented with a size 6 tibial tray with a 6 mm rotating platform, polyethylene insert, and a 35 mm polyethylene button. All of the components were cemented. Prosthesis was made by [employer]. It was an Attune knee. SURGEON: Karthik Long M.D. EXECUTIVE VICE PRESIDENT AND CHIEF FINANCIAL OFFICER: Kyleigh Shukla ANESTHESIA: Spinal with right femoral nerve block. COMPLICATIONS: None. ESTIMATED BLOOD LOSS: 20 mL. SPECIMEN: Joint surface. DESCRIPTION OF PROCEDURE: Antibiotics were given intravenously preoperative and a successful right femoral nerve block done with spinal anesthetic induced. Tourniquet placed preoperatively and not inflated. Right lower extremity was carefully prepped and draped in the usual sterile fashion and elevated. After appropriate timeout, the tourniquet was inflated. A longitudinal incision was made for a medial parapatellar approach to the knee. Bovee cautery was used to coagulate crossing vessels. A medial parapatellar arthrotomy performed. Subperiosteal dissection around the proximal, medial, and lateral tibial plateau was performed. We then everted the patella, flexed the knee, and excised the ACL. A drill was placed down the center of femoral canal followed by the intramedullary meri and the distal femoral cutting jig set for a 5-degree valgus cut for a right knee at 9-mm resection level. Block was pinned in position and distal femoral cut performed. AP sizing jig was initially measured for a size 6 and 3 degrees of external rotation was dialed in. Pin was placed and then 4-in-1 applied. Anterior and posterior chamfers cuts were performed taking great care to protect the soft tissues. The sulcus osteotomy jig was then applied and sulcus osteotomy performed. We then brought the knee into flexion and exposed the proximal tibia and used the extramedullary alignment jig to estimate being parallel to the mechanical access referencing off the medial tibial condyle at 4 mm resection level. The block was pinned into position. Secondary check with extramedullary meri confirmed we appeared to be parallel. Thus, the proximal tibial osteotomy was performed. We then placed the lamina media/instructional designer laterally and performed a completion medial meniscectomy with debridement of posterior medial osteophytes. Then placed the lamina media/instructional designer medially and performed a completion lateral meniscectomy with debridement of posterolateral osteophytes. Spacer block was then applied and it was perfect at 6 mm in extension. However, in flexion it was a bit too snug; thus, I felt it was best to down size the femur. The jig was then applied to the distal femur once again using the bat wing to make sure we had adjusted appropriately. The prior holes were actually easily seen in the #5 4-in-1 block applied and then, we re-did the posterior and then the posterior chamfer cut. There was no bone removed from the anterior chamfer or the anterior part of the femur. The sulcus osteotomy was checked and it was adequate. We then placed the spacer block once again and this time had excellent symmetry with good stability to varus and valgus stress testing both in flexion and extension. Thus, I felt this was the appropriate size component to use. We then exposed the proximal tibia, sized for a #6 tibial tray, pinned into position followed by the reamer and broach followed by the trial polyethylene and then trial femoral component. Brought the knee to extension, everted the patella, and performed patella osteotomy sized for a 35 button. Lug hole was drilled, trial placed, and patellofemoral tracking was anatomic. We then drilled the lug holes through the femur, removed all the trial components, and placed Exparel in the subperiosteal tissues around the distal femur and the proximal tibia; as my sales service assistant Ms. Dumont during this mixed the cement on the back table. She was also critical to the success of this difficult procedure by helping to prepare the patient for surgery, help to manipulate the knee, help to apply the appropriate soft tissue retraction, help to mix the cement, help to closure the wound, amongst my other tasks to allow me to perform the operation smoothly, efficiently, and safely. Once all the components were well-irrigated and then thoroughly dried, we cemented the tibial tray, removed excess cement, placed polyethylene, and then cemented the femoral component. We removed excess cement, brought the knee to extension, everted the patella, and cemented the patella component. We removed excess cement and held it with a clamp until the cement hardened with the knee in full extension. As we were awaiting this, we copiously irrigated out the knee joint once again, then placed tranexamic acid into the knee, and then began closing the apex of the arthrotomy with two #1 PDS sutures, the medial parapatellar area closed with #1 PDS suture, and running #1 STRATAFIX was used to close the capsule. The tourniquet was then released. We irrigated between layers, closed the deep subdermal tissues with interrupted 2-0 PDS sutures, skin closed with isaiah covered by Optifoam with a dry sterile bulky dressing. Then the patient was transferred to the recovery room in stable condition. There were no intraoperative complications. BENITA
[2020-02-03 09:19] LABS: ALBUMIN 3.3 GM/DL (3.2-5.2); ALT/SGPT 29 U/L (12-78); BILIRUBIN,TOTAL 0.6 MG/DL (0.2-1.0); BLOOD UREA NITROGEN 16 MG/DL (7-18); CALCIUM LEVEL 8.8 MG/DL (8.8-10.2); CARBON DIOXIDE LEVEL 30 MEQ/L (21-32); CHLORIDE LEVEL 104 MEQ/L (98-107); CREATININE FOR GFR 0.84 MG/DL (0.70-1.30); GLOMERULAR FILTRATION RATE > 60.0 (>49); GLUCOSE, FASTING 118 MG/DL (70-100); MAGNESIUM LEVEL 2.3 MG/DL (1.8-2.4); POTASSIUM SERUM 4.4 MEQ/L (3.5-5.1); SODIUM LEVEL 140 MEQ/L (136-145); TOTAL PROTEIN 6.7 GM/DL (6.4-8.2)
== END 2019-11-13 10:00 | disposition home health service (06) | DRG 470 ==
LOC: M MSPAV 07:15
PROVIDERS: ADMIT Orthopaedic Surgery; ATTEND Orthopaedic Surgery
PROC: 0SRC0J9 Replacement of Right Knee Joint with Synthetic Substitute, Cemented, Open Approach (ICD-10-PCS; principal; 2019-11-11)
DX: M17.11 Unilateral primary osteoarthritis, right knee (principal); I42.2 Other hypertrophic cardiomyopathy; I50.32 Chronic diastolic (congestive) heart failure; K21.9 Gastro-esophageal reflux disease without esophagitis; R33.9 Retention of urine, unspecified; I25.10 Atherosclerotic heart disease of native coronary artery without angina pectoris; J84.10 Pulmonary fibrosis, unspecified; I71.2 Thoracic aortic aneurysm, without rupture; G47.33 Obstructive sleep apnea (adult) (pediatric); I48.0 Paroxysmal atrial fibrillation; M10.9 Gout, unspecified; E78.5 Hyperlipidemia, unspecified; I83.90 Asymptomatic varicose veins of unspecified lower extremity; E66.9 Obesity, unspecified; Z68.38 Body mass index [BMI] 38.0-38.9, adult; I11.0 Hypertensive heart disease with heart failure; I44.0 Atrioventricular block, first degree; R94.31 Abnormal electrocardiogram [ECG] [EKG]; Z79.82 Long term (current) use of aspirin; Z79.899 Other long term (current) drug therapy

== ENCOUNTER → 2020-02-15 | Outpatient (CLI) | payer MEDICARE, OTHER ==
[~2020-02-15] MED LIST changes: -ACETAMINOPHEN 500 MG TAB As Ordered ONE; -MIDAZOLAM INJ 2MG/2ML VIAL (J2250 PER 1MG) As Ordered ONE; -ceFAZolin 2 GM/D5W 50 ML IV BAG (J0690 PER 500MG) As Ordered ONE; -fentaNYL 100 MCG/2 ML INJECTION (J3010) As Ordered ONE
--- NOTE | 2020-02-15 09:28 | REP ---
INDICATION: OTHER NONSPECIFIC ABN FINDINGS OF LUNG FIELD. Patient has a trip pulmonary fibrosis. Pleural based pulmonary nodule left lower lobe. COMPARISON: Comparison CT study of the chest is from March 25, 2019. Comparison PET-CT study April 21, 2019.. TECHNIQUE: Helical scanning is acquired and 3 mm axial images are generated. Coronal and sagittal MPR images are generated. Coronal MIP images are generated. FINDINGS: Preliminary digital technologies division chair radiograph shows mild fibrotic changes in the left and right base. There is a 9 mm noncalcified pleural-based nodule in the superior segment of the left lower lobe which appears unchanged from the March 25, [address] study. No new pulmonary nodule is appreciated. There are coarse areas of parenchymal fibrosis in the lingular segment of the left upper lobe and along the right major fissure unchanged. There are also areas of ground-glass opacity representing pulmonary parenchymal fibrosis in the lower lobes bilaterally and to a lesser extent in the lingula. These are unchanged from the most recent prior CT study of March 25, 2019. Some vascular calcification is observed. The ascending aorta is mildly dilated measuring 4.6 cm in AP dimension at the level of the right main pulmonary artery. This is unchanged as well. There is left coronary artery vascular calcification. No pleural or pericardial effusion is seen. Normal adrenal glands are observed. There is an accessory splenule in the left upper quadrant. There are scattered pleuroparenchymal calcifications in the right lung base. No hilar or mediastinal mass or adenopathy is observed. There is a small cyst in the upper pole of the right kidney. IMPRESSION: Extensive areas of bilateral basilar scattered parenchymal fibrosis unchanged from the March 25, 2019 prior study. There is a 9 mm noncalcified pulmonary nodule in the superior segment of the left lower lobe which is also unchanged from the prior exam 03/25/2019. <Electronically signed by Attila Lopez > 02/15/20 [id number]
== END ==
LOC: M RAD 07:52
PROVIDERS: ATTEND Internal Medicine Pulmonary Disease
DX: R91.1 Solitary pulmonary nodule (principal)

== ENCOUNTER → 2020-03-22 | Outpatient (CLI) | payer MEDICARE, OTHER ==
[~2020-03-22] MED LIST changes: +COLC0.6T47; -COLC1TAB13
[2020-03-22 14:01] LABS: BASO # 0.1 10^3/uL (0.0-0.2); BASO % 0.6 % (0.0-1.0); HEMATOCRIT 45.8 % (42.0-52.0); HEMOGLOBIN 13.1 g/dl (13.5-17.5); LYMPH # 3.2 10^3/uL (1.5-5.0); LYMPH % 25.9 % (24.0-44.0); MEAN CORPUSCULAR HEMOGLOBIN 19.2 pg (27.0-33.0); MEAN CORPUSCULAR HGB CONC 28.6 g/dl (32.0-36.5); MONO # 0.8 10^3/uL (0.0-0.8); MONO % 6.3 % (0.0-5.0); NEUTROPHILS # 8.2 10^3/uL (1.5-8.5); NEUTROPHILS % 66.3 % (36.0-66.0); PLATELET COUNT, AUTOMATED 176 10^3/uL (150-450); RED BLOOD COUNT 6.84 10^6/uL (4.30-6.10); WHITE BLOOD COUNT 12.3 10^3/uL (4.0-10.0)
[2020-03-22 14:23] LABS: ERYTHROCYTE SEDIMENTATION RATE 7 mm/hr (0-20)
== END ==
LOC: M LAB 13:24
PROVIDERS: ATTEND Orthopaedic Surgery
DX: M25.561 Pain in right knee (principal)

== ENCOUNTER → 2020-04-12 | Outpatient (CLI) | payer MEDICARE, OTHER ==
--- NOTE | 2020-04-12 12:04 | REP ---
INDICATION: PRESENCE OF RIGHT ARTIFICIAL KNEE, STRESS FX?. Possible hairline fracture on x-ray. COMPARISON: Comparison radiographs November 11, 2019. TECHNIQUE: 22.0 mCi of technetium 99 M MDP is injected and standard 3 phase imaging of the knees is acquired. FINDINGS: Anterior and posterior blood flow flow images are unremarkable. Immediate post injection blood pool images show minimally increased uptake about the a prosthetic components of the right knee. Delayed scan images demonstrate increased uptake at the bone prosthesis interface on both sides of the knee arthroplasty and at the patellar component. The uptake is a little more prominent in the medial tibial plateau than it is in the lateral tibial plateau or distal femur. There is also medial compartment osteoarthritic uptake in the left knee on delayed images. IMPRESSION: Expected pattern of post arthroplasty uptake in the bone prosthesis interface distribution right knee arthroplasty. No compelling evidence to suggest stress fracture. There is arthritic uptake in the medial compartment of the left knee as well. <Electronically signed by Attila Lopez > 04/12/20 [id number]
== END ==
LOC: M RAD 08:08
PROVIDERS: ATTEND Orthopaedic Surgery
DX: Z96.651 Presence of right artificial knee joint (principal)
CPT/HCPCS: 78315; A9503

== ENCOUNTER → 2020-04-29 | Outpatient (CLI) | payer MEDICARE, OTHER ==
[2020-04-29 13:06] LABS: CHOLESTEROL RISK RATIO 5.066 (<5); URIC ACID 6.9 MG/DL (3.5-7.2)
== END ==
LOC: M LAB 12:17
PROVIDERS: ATTEND Internal Medicine Cardiovascular Disease
DX: R94.31 Abnormal electrocardiogram [ECG] [EKG] (principal); E78.2 Mixed hyperlipidemia; I48.21 Permanent atrial fibrillation

== ENCOUNTER → 2020-05-09 | Outpatient (CLI) | payer MEDICARE, OTHER ==
[2020-05-09 13:48] LABS: HEMATOCRIT 49.5 % (42.0-52.0); HEMOGLOBIN 14.2 g/dl (13.5-17.5); MEAN CORPUSCULAR HGB CONC 28.7 g/dl (32.0-36.5); MEAN CORPUSCULAR VOLUME 66.3 fl (80.0-96.0); PLATELET COUNT, AUTOMATED 198 10^3/uL (150-450); RED BLOOD COUNT 7.47 10^6/uL (4.30-6.10); WHITE BLOOD COUNT 10.6 10^3/uL (4.0-10.0)
[2020-05-09 14:33] LABS: CALCIUM LEVEL 9.2 MG/DL (8.8-10.2); CREATININE FOR GFR 1.59 MG/DL (0.70-1.30); GLOMERULAR FILTRATION RATE 46.2 (>49); PHOSPHORUS LEVEL 5.2 MG/DL (2.5-4.9); POTASSIUM SERUM 5.6 MEQ/L (3.5-5.1)
== END ==
LOC: M LAB 12:43
PROVIDERS: ATTEND Internal Medicine Cardiovascular Disease
DX: I10 Essential (primary) hypertension (principal); I48.0 Paroxysmal atrial fibrillation

== ENCOUNTER → 2020-05-13 | Outpatient (CLI) | payer MEDICARE, OTHER ==
[2020-05-13 12:11] LABS: CALCIUM LEVEL 9.5 MG/DL (8.8-10.2); CREATININE FOR GFR 1.63 MG/DL (0.70-1.30); GLOMERULAR FILTRATION RATE 44.9 (>49); PHOSPHORUS LEVEL 4.4 MG/DL (2.5-4.9); POTASSIUM SERUM 5.6 MEQ/L (3.5-5.1)
== END ==
LOC: M LAB 10:40
PROVIDERS: ATTEND Internal Medicine Cardiovascular Disease
DX: I10 Essential (primary) hypertension (principal)

== ENCOUNTER → 2020-06-16 | Outpatient (CLI) | payer MEDICARE, OTHER ==
[2020-06-16 11:41] LABS: ALBUMIN 3.8 GM/DL (3.2-5.2); BLOOD UREA NITROGEN 24 MG/DL (7-18); CALCIUM LEVEL 9.2 MG/DL (8.8-10.2); CARBON DIOXIDE LEVEL 31 MEQ/L (21-32); CHLORIDE LEVEL 99 MEQ/L (98-107); CREATININE FOR GFR 1.07 MG/DL (0.70-1.30); GLOMERULAR FILTRATION RATE > 60.0 (>49); GLUCOSE, FASTING 152 MG/DL (70-100); PHOSPHORUS LEVEL 4.1 MG/DL (2.5-4.9); POTASSIUM SERUM 4.1 MEQ/L (3.5-5.1); SODIUM LEVEL 135 MEQ/L (136-145)
== END ==
LOC: M LAB 10:34
PROVIDERS: ATTEND Internal Medicine Cardiovascular Disease
DX: I11.0 Hypertensive heart disease with heart failure (principal)

== ENCOUNTER → 2020-06-21 | Outpatient (CLI) | payer MEDICARE, OTHER ==
--- NOTE | 2020-06-21 10:20 | REP ---
INDICATION: URINARY RETENTION. COMPARISON: CT 11/16/2016. TECHNIQUE: Real-time sonographic evaluation of the kidneys is performed. FINDINGS: Renal cortical echogenicity pattern is normal bilaterally and contours are smooth. Two cystic structures are seen in the upper right kidney measuring 1.4 x 1.7 x 1.6 cm and 1.9 x 2.2 x 1.9 cm. There is a hypoechoic nodule which is not a simple cyst in the lower pole of the right kidney measuring 2.6 x 2.9 x 1.7 cm. A cystic structure in the upper left kidney measures 2.0 x 1.5 x 1.4 cm. There is no hydronephrosis bilaterally. The right kidney measures 11.4 x 4.9 x 4.6 cm. Left renal dimensions are 11.7 x 5.2 x 5.5 cm. Doppler evaluation of the renal arteries was attempted but was nondiagnostic due to body habitus and bowel gas. IMPRESSION: Unsuccessful Doppler evaluation of renal arteries due to body habitus and bowel gas. There are bilateral cystic structures of the kidneys. However a hypoechoic nodule in the lower pole the right kidney is not a simple cyst. This may represent a complex cyst or solid nodule. Recommend dedicated MRI of the kidneys with and without contrast for further evaluation. <Electronically signed by Titus Haji > 06/21/20 [id number]
--- NOTE | 2020-06-21 10:22 | REP ---
INDICATION: ATHSCL RENAL ARTERY / RETENTION URINE. COMPARISON: None. TECHNIQUE: Real-time sonographic evaluation of urinary bladder performed. FINDINGS: The bladder measures 6.7 x 7.5 x 5.2 cm, total volume 134 cc. Postvoid residual is 51 cc, 38% of the original volume. No bladder wall thickening or mass is seen. No calculus is seen. Ureteral jets are seen in the urinary bladder with Doppler color evaluation. IMPRESSION: No bladder wall thickening or mass. Postvoid residual 38%. <Electronically signed by Titus Haji > 06/21/20 [id number]
== END ==
LOC: M RAD 08:26
PROVIDERS: ATTEND Internal Medicine Nephrology
DX: I70.1 Atherosclerosis of renal artery (principal); R33.9 Retention of urine, unspecified

== ENCOUNTER → 2020-08-29 | Outpatient (CLI) | payer MEDICARE, OTHER ==
[2020-08-29 15:22] LABS: HEMATOCRIT 47.1 % (42.0-52.0); HEMOGLOBIN 13.9 g/dl (13.5-17.5); MEAN CORPUSCULAR HEMOGLOBIN 19.8 pg (27.0-33.0); MEAN CORPUSCULAR HGB CONC 29.5 g/dl (32.0-36.5); MEAN CORPUSCULAR VOLUME 67.2 fl (80.0-96.0); PLATELET COUNT, AUTOMATED 220 10^3/uL (150-450); RED BLOOD COUNT 7.01 10^6/uL (4.30-6.10); WHITE BLOOD COUNT 14.4 10^3/uL (4.0-10.0)
[2020-08-29 15:49] LABS: ALBUMIN 3.7 GM/DL (3.2-5.2); ALT/SGPT 37 U/L (12-78); BILIRUBIN,TOTAL 0.6 MG/DL (0.2-1.0); BLOOD UREA NITROGEN 13 MG/DL (7-18); CALCIUM LEVEL 8.6 MG/DL (8.8-10.2); CARBON DIOXIDE LEVEL 29 MEQ/L (21-32); CHLORIDE LEVEL 102 MEQ/L (98-107); CREATININE FOR GFR 0.85 MG/DL (0.70-1.30); GLOMERULAR FILTRATION RATE > 60.0 (>49); GLUCOSE, FASTING 137 MG/DL (70-100); NT-PRO BNP 24 PG/ML (<125); POTASSIUM SERUM 4.3 MEQ/L (3.5-5.1); SODIUM LEVEL 137 MEQ/L (136-145); TOTAL PROTEIN 7.5 GM/DL (6.4-8.2); URIC ACID 4.9 MG/DL (3.5-7.2)
== END ==
LOC: M LAB 14:34
PROVIDERS: ATTEND Internal Medicine Cardiovascular Disease
DX: I50.32 Chronic diastolic (congestive) heart failure (principal); M10.9 Gout, unspecified

== ENCOUNTER → 2021-02-17 | Outpatient (CLI) | payer MEDICARE, OTHER ==
[~2021-02-17] MED LIST changes: +ALLO300T2; +AMLO1TAB24; +CHLO125TA; +D31000TA2 PO; +ESOM40CA35; +FINA5TAB2; +INVO100T; +NEUR300C PO; +SPIR-10; +TAMS1CAP17; +XIID5DRO
== END ==
LOC: M LABSMTC 09:59
PROVIDERS: ATTEND Anesthesiology
DX: Z01.818 Encounter for other preprocedural examination (principal); Z11.52 Encounter for screening for COVID-19

== ENCOUNTER → 2021-02-22 | Outpatient (CLI) | payer MEDICARE, OTHER | LOC: M LABSMTC 12:29 | PROVIDERS: ATTEND Anesthesiology | DX: Z01.818 Encounter for other preprocedural examination (principal); Z11.52 Encounter for screening for COVID-19 ==

== ENCOUNTER 2021-02-23 06:54 | Day surgery (SDC) | payer MEDICARE, OTHER ==
[~2021-02-23] VITALS: Ht 172.7 cm; Wt 114.3 kg
[~2021-02-23 06:54] MED LIST changes: +NS 1,000 ML IV ONE
--- OUTSIDE RECORDS SUMMARY | 2021-02-23 07:02 | CCD | Continuity of Care Document ---
Author Author Silas SARMIENTO PAMiguelC Organization Unknown Address [address] [place] [address] Phone [phone] Care Team Providers Care Projection Camera Operator Name Role Phone Lowell Lloyd MD AUTM [phone] Problems Active Problems Provider Date Pure hypercholesterolemia Karthik Le MD Onset: Idiopathic pulmonary fibrosis Karthik Le MD Onset : 09/01/2019 Cardiomegaly Karthik Le MD Onset: 09/01/19 20 Atrial fibrillation Karthik Le MD Onset: 09/01/19 20 Aneurysm of thoracic aorta Onset: 2012 Arthritis Onset: 05/17/2015 Atrial fibrillation Onset: 05/16/2011 Body mass index 30+ - obesity Onset: 04/2011 Disorder of tongue Onset: 05/17/2016 Diverticulitis of colon Onset: 2 Dyspnea Onset: 05/16/2011 Electrocardiogram abnormal Onset: 2011 First degree atrioventricular block Onse t: 05/16/2011 Paroxysmal atrial fibrillation Onset: Post-inflammatory pulmonary fibrosis Ons et: 05/16/2011 Precordial pain Onset: 11/12/2014 Precordial pain Onset: 05/17/2015 Preoperative cardiovascular examination Onset: 10/08/2017 Primary cardiomyopathy Onset: 05/16/2011 Pure hypercholesterolemia Onset: 012 Symptom of skin and integumentary tissue Onset: 05/17/2015 Acute bronchitis Onset: 10/22/2012 Body mass index 40+ - severely obese Ons et: 02/27/2011 Cough Onset: 10/30/2011 Difficulty breathing Onset: 10/30/2011 Morbid obesity Onset: 02/27/2011 Obstructive sleep apnea syndrome Onset: 09/26/2010 Social History Type Date Description Comments Sex Unknown ETOH Use Denies alcohol use Tobacco Use Start: Unknown Patient has never smoked Smoking Status Reviewed: 06/13/20 Patient has never smoked Allergies, Adverse Reactions, Alerts Description No Known Drug Allergies Medications Active Medications SIG Qnty Indications Ordering Provide r Date Flomax 0.4mg Capsules Take 1 by mouth once every day 60capiliana Le MD 020 Aspirin Adult 325mg Tablets 2 by mouth every day Unknown 10/18/2019 Neomycin Sulfate 500mg Tablets 2 by mouth @ 2 & 10p day before surgery, 2 by mouth @ 6am morning of surgery 6tabs Tim Espinoza MD 12/23/2017 Flagyl 500mg Tablets 1 tab by mouth @ 2p & 10p day before surg 1 tab by mouth @ 6am morning of surg 3tabs Tim Espinoza MD 12/23/2017 Zyrtec Allergy 10mg Tablets 1 by mouth every day as needed Unknown 11/22/2016 Benadryl Allergy 25mg Capsules 1 by mouth as needed Unknown 11/22/2016 Xopenex 0.63mg/3ML Nebulizer via neb up to tid, prn Unknown 10/13/2013 Ventolin HFA 108(90Base) mcg/Act A erosol 2 puffs qid/prn 54units Jackson Castellano, DO 07/22/2013 Budesonide 0.5mg/2ML Suspension 1 vial via nebulizer bid 120units Jackson Castellano, DO 03/22/[address] take one capsule by mouth every day 90capMann Sumner MD 02/22/2009 Albuterol Sulfate (2 .5mg/3ML) 0.083% Nebulizer 1 vial four times a day as needed Unknown Allopurinol 300mg Tablets 1 by mouth every day Unknown Atenolol 25mg Tablets 1 by mouth every day Unknown Atorvastatin Calcium 20mg Tablets 1 by mouth every day Unknown Colcrys 0.6mg Tablets daily Unknown Flecainide Acetate 100mg Tablets daily Unknown Colchicine 0.6mg Tablets 1 po bid Unknown Eliquis 5mg Tablets 1 po bid Doctor Jayy Unknown Carafate 1gm Tablets 1 tab by mouth twice a day prn Unknown Fluad 0.5ml Marian Inject as Di rected Unknown Epinephrine 0.3mg/0. 3ML Solution Auto-Inject Use as Directed Unknown Gabapentin 300mg Capsules Take One Capsule By Mouth Twice A Day Unknown Levofloxacin 750mg Tablets Take One Tablet By Mouth Every Day Unknown Esomeprazole Magnesium 40mg Capsul es DR Take One Capsule By Mouth Every Day Unknown Spironolactone 25mg Tablets 1 by mouth every day Unknown Lipitor 20mg Tablets 1 by mouth every day Unknown Immunizations Description No Information Available Vital Signs Date Vital Result Comment 12/02/2020 10:52am Body Temperature 97.2 F Height 68 inches 5'8" Weight 250.00 lb BMI (Body Mass Index) 38.0 kg/m2 03/21/2020 1:55pm Body Temperature 97.5 F Results Description No Information Available Procedures Date Code Description Status 12/02/2020 11370 Office/Outpatient Established Lo w MDM 20-29 Min Completed 11/21/2020 33199 MRI Lower Extremity Any Joint Co mpleted 11/21/2020 08616 MRI Lower Extremity Any Joint Co mpleted 11/16/2020 14489 Office/Outpatient Established Mo d MDM 30-39 Min Completed 11/16/2020 12832 Inject Tendon Sheath, Ligament C ompleted 08/15/2020 27178 Office/Outpatient Established Lo w MDM 20-29 Min Completed 07/04/2020 24760 Office/Outpatient Established Mo d MDM 30-39 Min Completed 07/04/2020 08739 Inject Tendon Sheath, Ligament C ompleted 06/23/2020 76660 Office/Outpatient Established Mo d MDM 30-39 Min Completed 06/23/2020 61029 Inject Tendon Sheath, Ligament C ompleted Medical Devices Description No Information Available Encounters Type Date Location Provider Dx Diagnosis Office Visit 12/02/2020 10:45a Ed Sarmiento PA-C M6 6.872 Spontaneous rupture of other tendons, left ankle and foot M19.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, left ankle and foot M76.72 Peroneal tendinitis, left le g Office Visit 08/15/2020 1:15p [place] Karthik Le MD M2 5.561 Pain in right knee Z96.651 Presence of right artificial knee joint Assessments Date Code Description Provider 12/02/2020 M66.872 Spontaneous rupture of other ten dons, left ankle and foot Shar Sarmiento PA-C 12/02/2020 M19.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, left ank le and foot Shar Sarmiento PA-C 12/02/2020 M76.72 Peroneal tendinitis, left leg Ba hi Sarmiento PA-C 11/21/2020 M76.72 Peroneal tendinitis, left leg Ba hi Sarmiento PA-C 11/21/2020 M76.72 Peroneal tendinitis, left leg MR I 11/16/2020 M76.72 Peroneal tendinitis, left leg Ba hi Sarmiento PA-C 08/15/2020 M25.561 Pain in right knee Karthik carroll MD 08/15/2020 Z96.651 Presence of right artificial kne e joint DDylon Le MD 07/04/2020 M76.72 Peroneal tendinitis, left leg St duane Padilla MD 07/04/2020 M76.72 Peroneal tendinitis, left leg St even Mimi Padilla MD 07/04/2020 M19.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, left ank le and foot Silas Padilla MD 07/04/2020 M19.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, left ank le and foot Silas Padilla MD 07/04/2020 M65.341 Trigger finger, right ring finge r Silas Padilla MD 06/23/2020 M76.72 Peroneal tendinitis, left leg even Mimi Padilla MD 06/23/2020 M19.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, left ank le and foot Silas Padilla MD Plan of Treatment No Information Available Functional Status Description No Information Available Mental Status Description No Information Available Referrals Refer to Dr Reason for Referral Status Appt Date Shane Le MD REFERRAL NO AUTH REQUIRED FO R REFERRAL DR. BARAHONA TO LOADER HELPER. DG Created [facility] [place] [address] [phone] Shane Le MD REFERRAL NO AUTH REQUIRED FO R REFERRAL DR. BARAHONA TO LOADER HELPER. LYNN Created [facility] [place] [address] [phone] Sahne Le MD MRI LEFT ANKLE no auth req p er medicare based on medical necessity, no auth req per Stefany B at [facility], passed to mri tracker sw. Created [facility] [place] [address] [phone] Shane Le MD MRI LEFT ANKLE no auth req p er medicare based on medical necessity, no auth req per Stefany B at [facility], passed to mri tracker sw. Created [address] [place] [address] [phone] Shane Le MD REFERRAL NO AUTH REQUIRED FO R REFERRAL TO DR. MICHELLE PAIZ TO LOADER HELPER. DG Created [facility] [place] [address] [phone] Shane Le MD REFERRAL NO AUTH REQUIRED FO R REFERRAL TO DR. MICHELLE PAIZ TO LOADER HELPER. DG Created [facility] [place] [address] [phone]
--- OUTSIDE RECORDS SUMMARY | 2021-02-23 07:02 | CCD | Continuity of Care Document ---
Author Author Silas MADRID M.D. Organization Unknown Address [address] [facility] [place], [address] [place] [address] Phone [phone] Care Team Providers Care Director Of Curriculum Name Role Phone Lowell Lloyd M.D. AUTM [phone] Mann Hope M.D. AUTM [phone] Problems Active Problems Provider Date Acute bronchitis Jackson Castellano D.O. Onset: 3 Cough Jackson Castellano D.O. Onset: 2 Difficulty breathing Jackson Castellano D.O. Onset: 10/30/19 12 Body mass index 40+ - severely obese Jackson Castellano D.O. Onset: 02/27/2011 Morbid obesity Jackson Castellano D.O. Onset: 1 Obstructive sleep apnea syndrome Jackson Castellano D.O. Ons et: 09/26/2010 Post-inflammatory pulmonary fibrosis Noah Mix nset: 03/01/2020 Social History Type Date Description Comments Sex Unknown ETOH Use Denies alcohol use Recreational Drug Use Denies Drug Use Tobacco Use Reviewed: 01/13/20 Patient has never smoked Smoking Status Reviewed: 09/01/20 Patient has never smoked Allergies and adverse reactions Description No Known Drug Allergies Medications Active Medications SIG Qnty Indications Ordering Provide r Date Xanax 0.5mg Tablets 1 po bid Unknown 05/16/2015 Ventolin HFA 108(90Base) mcg/Act A erosol 2 puffs qid/prn 54units Jackson Castellano D.O. 07/23/19 14 Xiidra 5% Solution 1 drop both eyes twice a day Unknown Invokana 100mg Tablets 1 by mouth every day Unknown Vitamin B-12 500mcg Tablets 1 by mouth every day Unknown Vitamin D3 50mcg (2000 Ut) Tablets 2 tab by mouth every day Unknown Acetaminophen 325mg Tablets 2 tabs as needed Unknown Chlorthalidone 25mg Tablets Take One Half Tablet By Mouth Every Day Unknown Amlodipine Besylate 5mg Tablets Take 1Tab Twice A Day Hold For Sitting/Resting Systolic Blood Pressure Less [id number] Unknown Finasteride 5mg Tablets 1 tab by mouth every day Unknown Tamsulosin HCL 0.4mg Capsules 1 cap by mouth every day Unknown CPAP 6cm martin Castellano D.O Eliquis 5mg Tablets 1 po bid Unknown Spironolactone 12.5mg Tablets 1 by mouth every day Unknown Nexium 40mg Capsules DR 1 cap by mouth every day as needed 90caps Unknown Flecainide Acetate 50mg Tablets 1 tab by mouth twice a day Unknown Atorvastatin Calcium 20mg Tablets 1 tab by mouth every day Unknown Atenolol 25mg Tablets 1 tab by mouth every day Unknown Allopurinol 300mg Tablets 1 tab by mouth every day Unknown Albuterol Sulfate (2 .5mg/3ML) 0.083% Nebulizer 1 vial four times a day as needed Unknown Covid-19 vaccine, Unspecified Inj ection Unknown Medications Administered in Office Medication SIG Qnty Indications Ordering Provider Date Covid-19 vaccine, Unspecified Inj ection Unknown 06/20/2020 Covid-19 vaccine, Unspecified Inj ection Unknown 05/23/2020 Immunizations CPT Code Status Date Vaccine Lot # 47360 Given 03/07/2016 Influenza Virus Split 3 Yrs And Above For Intramuscular Use 56136 Given 02/08/2016 Influenza Virus Split 3 Yrs And Above For Intramuscular Use 23838 Given 2016 Prevnar 13 87510 Given 02/16/2014 Influenza Virus Split 3 Yrs And Above For Intramuscular Use Q2036 Given 02/20/2012 Influenza Vaccine 3 Years Of Age Or Older (Flulaval) Q2036 Given 01/31/2011 Influenza Vaccine 3 Years Of Age Or Older (Flulaval) 04528 Given 02/08/2010 Influenza Virus Split 3 Yrs And Above For Intramuscular Use Q2036 Given Unknown Influenza Vaccine 3 Years Of Age Or Older (Flulaval) 11078 Given Unknown Pneumococcal PPSV23 Vital Signs Date Vital Result Comment 01/02/2021 3:04pm BP Systolic 140 mmHg BP Diastolic 80 mmHg Body Temperature 98.4 F Height 68 inches 5'8" Weight 251.00 lb BMI (Body Mass Index) 38.2 kg/m2 [place] Body Weight 154 lb Weight 113.854 kg BSA (Body Surface Area) 2.25 m2 09/01/2020 11:01am BP Systolic 122 mmHg BP Diastolic 80 mmHg Heart Rate 57 /min O2 % BldC Oximetry 96 % Body Temperature 98.6 F Height 68 inches 5'8" Weight 255.00 lb BMI (Body Mass Index) 38.8 kg/m2 [place] Body Weight 154 lb Weight 115.668 kg BSA (Body Surface Area) 2.27 m2 Results Test Acquired Date Facility Test Result H/L Range Note FVL/August 09/01/2020 [facility] SEE IMAGE FVC-Pred 4.13 L FVC-Pre 2.15 L FVC-%Pred-Pre 52 L FVC-LLN 3.25 L Fev1-Pred 3.04 L Fev1-Pre 1.62 L Fev1-%Pred-Pre 53 L Fev1-LLN 2.30 L Fev6-Pred 3.89 L Fev6-Pre 2.15 L Fev6-%Pred-Pre 55 L Fev6-LLN 3.04 L Jfp0uhv-Vegf 74 % Nxu7dgb-Znc 75 % Gxw7lzy-%Pred-Pre 101 % Mft4xga-IHF 64 % Ydq9ilj-Fgbr 94 % Wet0ydz-Kyi 100 % Bjo8abs-%Pred-Pre 106 % FEFMax-Pred 8.01 L/E/sec FEFMax-Pre 4.13 L/E/sec FEFMax-%Pred-Pre 51 L/E/sec FEFMax-LLN 5.82 L/E/sec Ogc1986-Yluv 2.34 L/E/sec Wih9080-Blv 1.22 L/E/sec Xra4588-%Pred-Pre 52 L/E/sec Fob9191-FUV 0.83 L/E/sec ExpTime-Pre 5.32 sec Jvm2aoh0-Cqvu 78 % Ync9ijm9-Zyt 75 % Nlq9kwz8-%Pred-Pre 96 % Nto6oec1-MEH 69 % Complete Blood Count 08/29/2020 [facility] Main Lab [address] [place] [address] [phone] White Blood Count 14.4 10 High 4.0-10.0 Red Blood Count 7.01 10 High 4.30-6.10 Hemoglobin 13.9 g/dL Normal 13.5-17.5 Hematocrit 47.1 % Normal 42.0-52.0 Mean Corpuscular Volume 67.2 fl Low 80.0-96.0 Mean Corpuscular Hemoglobin 19.8 pg Low 27.0-33.0 Mean Corpuscular HGB Conc 29.5 g/dL Low 32.0-36.5 Red Cell Distribution Width 18.8 % High 11.5-14.5 Platelet Count, Automated 220 10 Normal 150-450 Nucleated Red Blood Cell % 0.0 % Normal 0-0 Comprehensive Metabolic Profil 08/29/2020 [facility] Main Lab [address] [place] [address] [id number] [phone] Glucose, Fasting 137 mg/dL High 70-100 Blood Urea Nitrogen 13 mg/dL Normal 7-18 Creatinine For GFR 0.85 mg/dL Normal 0.70-1.30 Glomerular Filtration Rate > 60.0 Normal >49 1 Sodium Level 137 mEq/L Normal 136-145 Potassium Serum 4.3 mEq/L Normal 3.5-5.1 Chloride Level 102 mEq/L Normal 98-107 Carbon Dioxide Level 29 mEq/L Normal 21-32 Anion Gap 6 mEq/L Low 8-16 Calcium Level 8.6 mg/dL Low 8.8-10.2 Ast/Sgot 16 U/L Normal 7-37 Alt/SGPT 37 U/L Normal 12-78 Alkaline Phosphatase 84 U/L Normal 45-117 Bilirubin,Total 0.6 mg/dL Normal 0.2-1.0 Total Protein 7.5 GM/DL Normal 6.4-8.2 Albumin 3.7 GM/DL Normal 3.2-5.2 Albumin/Globulin Ratio 1.0 Normal Laboratory test finding 08/29/2020 [facility] Main Lab [address] [place] [address] [phone] Uric Acid 4.9 mg/dL Normal 3.5-7.2 NT-Pro BNP 24 pg/mL Normal <125 1 Units are mL/min/1.73 m2 Chronic Kidney Disease Staging per NKF: Stage I & II GFR >=60 Normal to Mildly Decreased Stage III GFR 30-59 Moderately Decreased Stage IV GFR 15-29 Severely Decreased Stage V GFR <15 Very Little GFR Left ESRD GFR <15 on HEAD SCREEN WORKER Procedures Date Code Description Status 01/02/2021 87306 Office/Outpatient Established Lo w MDM 20-29 Min Completed 09/01/2020 09804 Office/Outpatient Established Mo d MDM 30-39 Min Completed 09/01/2020 86741 Spirometry Completed Medical Devices Description No Information Available Encounters Type Date Location Provider Dx Diagnosis Office Visit 01/02/2021 2:45p [facility] Tim mcallister M.D. K21.9 Gastro-esophageal reflux disease without esophagitis K57.30 Dvrtclos of lg int w/o perfo ration or abscess w/o bleeding E66.01 Morbid (severe) obesity due to excess calories Z80.0 Family history of malignant neoplasm of digestive organs Z12.11 Encounter for screening for malignant neoplasm of colon Office Visit 09/01/2020 11:00a [facility] Pulmonary/Thoracic D chuyita Castellano D.O J84.10 Pulmonary fibrosis, unspecif ied G47.33 Obstructive sleep apnea (jessica lt) (pediatric) Assessments Date Code Description Provider 01/02/2021 K21.9 Gastro-esophageal reflux disease without esophagitis Tim Madrid M.D. 01/02/2021 K57.30 Diverticulosis of la rge intestine without perforation or abscess without bleeding Tim Madrid M.D. 01/02/2021 E66.01 Morbid (severe) obesity due to e xcess calories Tim Madrid M.D. 01/02/2021 Z80.0 Family history of malignant neop lasm of digestive organs Tim Madrid M.D. 01/02/2021 Z12.11 Encounter for screening for pamela gnant neoplasm of colon Tim Madrid M.D. 09/01/2020 J84.10 Pulmonary fibrosis, unspecified Jackson Castellano D.O 09/01/2020 G47.33 Obstructive sleep apnea (adult) (pediatric) Jackson Castellano D.O Plan of Treatment Future Appointment(s):* 03/06/2021 10:00 am - SUZANNA Hennessy at [facility] * 02/23/2021 9:05 am - Tim Madrid M.D. at [facility] * 03/07/2021 11:00 am - Jackson Castellano D.O at [facility] Pulmonary/Thoracic 01/02/2021 - Tim Madrid M.D.* K21.9 Gastro-esophageal reflux disease without esophagitis* Comments:* Patient was counseled for EGD and colonoscopy. He does have a sister apparently who had colon cancer. At his colonoscopy in February [address] Kwan he was found to hav some small adenomatous polyps in the ascending colon. Certainly I think the colonoscopy is appropriate and with his increased reflux symptoms performing the upper endoscopy is prudent. He was counseled for both procedures and desires to proceed. * K57.30 Diverticulosis of large intestine without perforation or abscess without bleeding * E66.01 Morbid (severe) obesity due to excess calories * Z80.0 Family history of malignant neoplasm of digestive organs * Z12.11 Encounter for screening for malignant neoplasm of colon Functional Status Description No Information Available Mental Status Description No Information Available Referrals Description No Information Available
--- OUTSIDE RECORDS SUMMARY | 2021-02-23 07:02 | CCD | Continuity of Care Document ---
Author Author Silas SARMIENTO PAMiguelC Organization Unknown Address [address] [place] [address] Phone [phone] Care Team Providers Care Operating Room Aide Name Role Phone Lowell Lloyd MD AUTM [phone] Problems Active Problems Provider Date Pure hypercholesterolemia [...] twice a day prn Unknown Fluad 0.5ml Mraian Inject as Di rected Unknown Epinephrine 0.3mg/0. [...] Information Available Procedures Date Code Description Status 01/13/2021 25834 Office/Outpatient Established Mo d MDM 30-39 Min Completed 12/02/2020 59881 Office/Outpatient Established Lo w MDM 20-29 Min Completed 11/21/2020 77453 MRI Lower Extremity Any Joint Co mpleted 11/21/2020 52376 MRI Lower Extremity Any Joint Co mpleted 11/16/2020 02079 Office/Outpatient Established Mo d MDM 30-39 Min Completed 11/16/2020 05854 Inject Tendon Sheath, Ligament C ompleted 08/15/2020 76322 Office/Outpatient Established Lo w MDM 20-29 Min Completed Medical Devices Description No Information Available Encounters Type Date Location Provider Dx Diagnosis Office Visit 01/13/2021 10:00a Ed Sarmiento PA-C M6 6.872 Spontaneous rupture of other tendons, left ankle and foot M19.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, left ankle and foot M76.72 Peroneal tendinitis, left le g Office Visit 12/02/2020 10:45a Ed Sarmiento PA-C M6 6.872 Spontaneous rupture of other tendons, left ankle and foot M19.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, left ankle and foot M76.72 Peroneal tendinitis, left le g Office Visit 08/15/2020 1:15p [place] Karthik Le MD M2 5.561 Pain in right knee Z96.651 Presence of right artificial knee joint Assessments Date Code Description Provider 01/13/2021 M66.872 Spontaneous rupture of other ten dons, left ankle and foot Shar Sarmiento PA-C 01/13/2021 M19.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, left ank le and foot Shar Sarmiento PA-C 01/13/2021 M76.72 Peroneal tendinitis, left leg Ba hi Sarmiento PA-C 12/02/2020 M66.872 Spontaneous rupture of other ten [...] Presence of right artificial kne e joint Karthik Le MD Plan of Treatment 01/13/2021 - Shar Sarmiento PA-C* M66.872 Spontaneous rupture of other tendons, left ankle and foot* Follow up:* prn * M19.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 BARAHONA TO AIRCRAFT ARMORER. DG Created [facility] [address] [address] [phone] Shane Le MD REFERRAL NO AUTH REQUIRED FO R REFERRAL DR. BARAHONA TO AIRCRAFT ARMORER. DG Created [address] [facility] [place], [place] [address] [phone] Shane Le MD MRI LEFT ANKLE no auth req p er medicare based on medical necessity, no auth req per Stefany B at [facility], passed to mri tracker sw. Created [facility] [place] [address] [phone] Shane Le MD MRI LEFT ANKLE no auth req p er medicare based on medical necessity, no auth req per Stefany B at [facility], passed to mri tracker sw. Created [facility] [address] [address] [phone] Shane Le MD REFERRAL NO AUTH REQUIRED FO R REFERRAL TO DR. MICHELLE PAIZ TO AIRCRAFT ARMORER. DG Created [facility] [address] [address] [phone] Shane Le MD REFERRAL NO AUTH REQUIRED FO R REFERRAL TO DR. MICHELLE PAIZ TO AIRCRAFT ARMORER. LYNN Created [facility] [address] [address] [phone]
--- OUTSIDE RECORDS SUMMARY | 2021-02-23 07:02 | CCD | Continuity of Care Document ---
Author Author Silas SARMIENTO PAMiguelC Organization Unknown Address [address] [place] [address] Phone [phone] Care Team Providers Care Roll Trucker Name Role Phone Lowell Lloyd MD AUTM [phone] Problems Active Problems Provider Date Pure hypercholesterolemia [...] Available Procedures Date Code Description Status 01/13/2021 20046 Office/Outpatient Established Mo d MDM 30-39 Min Completed 12/02/2020 38087 Office/Outpatient Established Lo w MDM 20-29 Min Completed 11/21/2020 80610 MRI Lower Extremity Any Joint Co mpleted 11/21/2020 15905 MRI Lower Extremity Any Joint Co mpleted 11/16/2020 24821 Office/Outpatient Established Mo d MDM 30-39 Min Completed 11/16/2020 32684 Inject Tendon Sheath, Ligament C ompleted 08/15/2020 04674 Office/Outpatient Established Lo w MDM 20-29 Min Completed Medical Devices Description No Information Available Encounters Type Date Location Provider Dx Diagnosis Office Visit 01/13/2021 10:00a dE Sarmiento PA-C M6 6.872 Spontaneous rupture of other tendons, left ankle and foot M19.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 BARAHONA TO HEEL SANDER. DG Created [facility] [address] [address] [phone] Shane Le MD REFERRAL NO AUTH REQUIRED FO R REFERRAL DR. BARAHONA TO HEEL SANDER. DG Created [address] [facility], [place] [address] [phone] Shane Le MD MRI LEFT ANKLE no auth req p er medicare based on medical necessity, no auth req per Stefany B at [facility], passed to mri tracker sw. Created [facility] [place] [address] [phone] Shane Le MD MRI LEFT ANKLE no auth req p er medicare based on medical necessity, no auth req per Stefany B at [facility], passed to mri tracker sw. Created [facility] [address] [address] [phone] Shane Le MD REFERRAL NO AUTH REQUIRED FO R REFERRAL TO DR. MICHELLE PAIZ TO HEEL SANDER. DG Created [facility] [address] [address] [phone] Shane Le MD REFERRAL NO AUTH REQUIRED FO R REFERRAL TO DR. MICHELLE PAIZ TO HEEL SANDER. LYNN Created [facility] [address] [address] [phone]
--- OUTSIDE RECORDS SUMMARY | 2021-02-23 07:02 | CCD | Continuity of Care Document ---
Author Author Silas MADRID M.D. Organization Unknown Address [address] [facility], [address] [place] [address] Phone [phone] Care Team Providers Care Fountain Supervisor Name Role Phone Lowell Lloyd M.D. AUTM [phone] Mann Hope M.D. AUTM [phone] Problems Active Problems Provider Date Acute bronchitis Jackson Castellano D.O. Onset: 3 Cough Jackson Castellano D.O. Onset: 2 Difficulty breathing Jackson Castellano D.O. Onset: 10/30/19 12 Body mass index 40+ - severely obese Jackson Castellano D.O. Onset: 02/27/2011 Morbid obesity Jackson Castellano D.O. Onset: 1 Obstructive sleep apnea syndrome Jackson Castellano D.O. 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 Social History Type Date Description Comments Sex Unknown ETOH Use Denies alcohol use Recreational Drug Use Denies Drug Use Tobacco Use Reviewed: 01/13/20 Patient has never smoked Smoking Status Reviewed: 09/01/20 Patient has never smoked Allergies, Adverse Reactions, Alerts Description No Known Drug Allergies Medications Active Medications SIG Qnty Indications Ordering Provide r Date Xanax 0.5mg Tablets 1 po bid Unknown 05/16/2015 Ventolin HFA 108(90Base) mcg/Act A erosol 2 puffs qid/prn 54units Jackson Castellano D.ODylon 07/23/19 14 Xiidra 5% Solution 1 drop [...] Hold For Sitting/Resting Systolic Blood Pressure Less [id number] Unknown Finasteride 5mg Tablets 1 tab by mouth every day Unknown Tamsulosin HCL 0.4mg Capsules 1 cap by mouth every day Unknown CPAP 6cm martin Castellano, DO Eliquis 5mg Tablets 1 po bid Unknown [...] CPT Code Status Date Vaccine Lot # 55740 Given 03/07/2016 Influenza Virus Split 3 Yrs And Above For Intramuscular Use 96042 Given 02/08/2016 Influenza Virus Split 3 Yrs And Above For Intramuscular Use 13429 Given 2016 Prevnar 13 58658 Given 02/16/2014 Influenza Virus Split 3 Yrs And Above For Intramuscular Use Q2036 Given 02/20/2012 Influenza Vaccine 3 Years Of Age Or Older (Flulaval) Q2036 Given 01/31/2011 Influenza Vaccine 3 Years Of Age Or Older (Flulaval) 49741 Given 02/08/2010 Influenza Virus Split 3 Yrs And Above For Intramuscular Use Q2036 Given Unknown Influenza Vaccine 3 Years Of Age Or Older (Flulaval) 08879 Given Unknown Pneumococcal PPSV23 Vital Signs Date Vital Result Comment 01/02/2021 3:04pm BP Systolic 140 mmHg BP Diastolic 80 mmHg Body Temperature 98.4 F Height 68 inches 5'8" Weight 251.00 lb BMI (Body Mass Index) 38.2 kg/m2 [place] Body Weight 154 lb Weight 113.854 kg BSA (Body Surface Area) 2.25 m2 09/01/2020 11:01am BP Systolic 122 mmHg BP Diastolic 80 mmHg Heart Rate 57 /min O2 % BldC Oximetry 96 % Body Temperature 98.6 F Height 68 inches 5'8" Weight 255.00 lb BMI (Body Mass Index) 38.8 kg/m2 [place] Body Weight 154 lb Weight 115.668 kg BSA (Body Surface Area) 2.27 m2 Results Test Acquired Date Facility Test Result H/L Range Note FVL/August 09/01/2020 [email or web address] SEE IMAGE FVC-Pred 4.13 L FVC-Pre 2.15 L FVC-%Pred-Pre 52 L FVC-LLN 3.25 L Fev1-Pred 3.04 L Fev1-Pre 1.62 L Fev1-%Pred-Pre 53 L Fev1-LLN 2.30 L Fev6-Pred 3.89 L Fev6-Pre 2.15 L Fev6-%Pred-Pre 55 L Fev6-LLN 3.04 L Rzh2jjs-Evfx 74 % Hsd0rsc-Xlf 75 % Mbh3qlu-%Pred-Pre 101 % Qgr3yus-HUV 64 % Kxu2urj-Ftdb 94 % Lhw3jmf-Boe 100 % Zsm4qti-%Pred-Pre 106 % FEFMax-Pred 8.01 L/E/sec FEFMax-Pre 4.13 L/E/sec FEFMax-%Pred-Pre 51 L/E/sec FEFMax-LLN 5.82 L/E/sec Kda5280-Xkzn 2.34 L/E/sec Pkk2628-Tbj 1.22 L/E/sec Xqx0021-%Pred-Pre 52 L/E/sec Kaw1600-WUE 0.83 L/E/sec ExpTime-Pre 5.32 sec Wdt8hss3-Eewr 78 % Rah8lxk8-Rwi 75 % Szm5ijg4-%Pred-Pre 96 % Mwe4tlj8-TYT 69 % Complete Blood Count 08/29/2020 [facility] [address] [place] [address] [id number] [phone] White Blood Count 14.4 10 High 4.0-10.0 [...] % Normal 0-0 Comprehensive Metabolic Profil 08/29/2020 [facility] [address] [place] [address] [id number] [phone] Glucose, Fasting 137 mg/dL High 70-100 Blood [...] Ratio 1.0 Normal Laboratory test finding 08/29/2020 [facility] [address] [place] [address] [phone] Uric Acid 4.9 mg/dL Normal 3.5-7.2 NT-Pro BNP 24 pg/mL Normal <125 1 Units are mL/min/1.73 m2 Chronic Kidney Disease Staging per NKF: Stage I & II GFR >=60 Normal to Mildly Decreased Stage III GFR 30-59 Moderately Decreased Stage IV GFR 15-29 Severely Decreased Stage V GFR <15 Very Little GFR Left ESRD GFR <15 on MANAGER IMPLEMENTATION Procedures Date Code Description Status 09/01/2020 59751 Office/Outpatient Established Mo d MDM 30-39 Min Completed 09/01/2020 38336 Spirometry Completed Medical Devices Description No Information Available Encounters Type Date Location Provider Dx Diagnosis Office Visit 09/01/2020 11:00a [facility] Pulmonary/Thoracic D chuyita Castellano DO J84.10 Pulmonary fibrosis, unspecif ied G47.33 Obstructive sleep apnea (jessica lt) (pediatric) Assessments Date Code Description Provider 09/01/2020 J84.10 Pulmonary fibrosis, unspecified Jackson Castellano DO 09/01/2020 G47.33 Obstructive sleep apnea (adult) (pediatric) Jackson Castellano DO Plan of Treatment Future Appointment(s):* 03/07/2021 11:00 am - Jackson Castellano DO at [facility] Pulmonary/Thoracic 09/01/2020 - Jackson Castellano DO* J84.10 Pulmonary fibrosis, unspecified * G47.33 Obstructive sleep apnea (adult) (pediatric) * * New Labs:* FVL/August, Scheduled: 03/07/21 * Comments:* ~ Having reviewed the history, physical, and diagnostic findings with the patient, I have recommended continued nightly use of pressure therapy, as inhaled therapy is used on an as needed basis for dyspnea. We discussed the importance of maintenance of activity as best he is able for conditioning, and will arrange for a follow-up in six months with spirometry flow volume loop testing and an updated CT scan without contrast to re- evaluate the nodule described above. * Follow up:* Six months with spirometry/FVL & CT chest no contrast please. Functional Status Description No Information Available Mental Status Description No Information Available Referrals Description No Information Available
--- OUTSIDE RECORDS SUMMARY | 2021-02-23 07:03 | CCD | Continuity of Care Document ---
Author Author Silas SARMIENTO PAMiguelC Organization Unknown Address [address] [place] [address] Phone [phone] Care Team Providers Care Grip Wrapper Name Role Phone Lowell Lloyd MD AUTM [phone] Problems Active Problems Provider Date Pure hypercholesterolemia [...] Available Vital Signs Date Vital Result Comment 03/21/2020 1:55pm Body Temperature 97.5 F 03/14/2020 10:13am Body Temperature 97.1 F Results Description No Information Available Procedures Date Code Description Status 11/21/2020 95727 MRI Lower Extremity Any Joint Co mpleted 11/16/2020 15957 Office/Outpatient Established Mo d MDM 30-39 Min Completed 11/16/2020 53650 Inject Tendon Sheath, Ligament C ompleted 08/15/2020 01309 Office/Outpatient Established Lo w MDM 20-29 Min Completed 07/04/2020 52385 Office/Outpatient Established Mo d MDM 30-39 Min Completed 07/04/2020 94277 Inject Tendon Sheath, Ligament C ompleted 06/23/2020 33387 Office/Outpatient Established Mo d MDM 30-39 Min Completed 06/23/2020 62505 Inject Tendon Sheath, Ligament C ompleted 06/13/2020 86483 Office/Outpatient Established Mo d MDM 30-39 Min Completed 06/13/2020 69541 Inject Tendon Sheath, Ligament C ompleted Medical Devices Description No Information Available Encounters Type Date Location Provider Dx Diagnosis Office Visit 08/15/2020 1:15p Ed Le MD M2 5.561 Pain in right knee Z96.651 Presence of right artificial knee joint Assessments Date Code Description Provider 11/21/2020 M76.72 Peroneal tendinitis, left leg MR I 11/16/2020 M76.72 Peroneal tendinitis, left leg Ba hi Sarmiento PA-C 08/15/2020 M25.561 Pain in right knee Karthik carroll MD 08/15/2020 Z96.651 Presence of right artificial kne e joint Karthik Le MD 07/04/2020 M76.72 Peroneal tendinitis, left leg St even B. MD Randy 07/04/2020 M76.72 Peroneal tendinitis, left leg St even B. MD Randy 07/04/2020 M19.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, left ank le and foot Silas Padilla MD 07/04/2020 M19.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, left ank le and foot Silas Padilla MD 07/04/2020 M65.341 Trigger finger, right ring finge r Silas Padilla MD 06/23/2020 M76.72 Peroneal tendinitis, left leg St even Bess. MD Randy 06/23/2020 M19.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, left ank le and foot Silas Padilla MD 06/13/2020 M76.72 Peroneal tendinitis, left leg St even Mimi Padilla MD Plan of Treatment Future Appointment(s):* 12/02/2020 10:45 am - Shar Sarmiento PA-C at [place] 11/16/2020 - Shar Sarmiento PA-C* M76.72 Peroneal tendinitis, left leg* Follow up:* [facility] after lt ankle mri with BMS Functional Status Description No Information Available Mental Status Description No Information Available Referrals Refer to Reason for Referral Status Appt Date Shane Le MD MRI LEFT ANKLE no auth req p er medicare based on medical necessity, no auth req per Stefany B at [facility], passed to mri tracker sw. Created [facility], [address] [place] [address] [phone] Shane Le MD MRI LEFT ANKLE no auth req p er medicare based on medical necessity, no auth req per Stefany B at [facility], passed to mri tracker sw. Created [address] [place] [address], [address] [address] [phone] Shane Le MD REFERRAL NO AUTH REQUIRED FO R REFERRAL TO DR. MICHELLE PAIZ TO USER EXPERIENCE MANAGER. DG Created [address] [place] [address], [address] [address] [phone] Shane Le MD REFERRAL NO AUTH REQUIRED FO R REFERRAL TO DR. MICHELLE PAIZ TO USER EXPERIENCE MANAGER. DG Created [address] [place] [address], [address] [address] [phone]
--- OUTSIDE RECORDS SUMMARY | 2021-02-23 07:03 | CCD | Continuity of Care Document ---
Author Author Silas LEE Organization Unknown Address [address] [place] [address] Phone [phone] Care Team Providers Care Security Technician Name Role Phone Lowell Lloyd MD AUTM [phone] Problems Active Problems Provider Date Pure hypercholesterolemia [...] Take 1 by mouth once every day 60caps Karthik Le MD 020 Aspirin Adult 325mg Tablets [...] take one capsule by mouth every day 90Mann Cabrera MD 02/22/2009 Albuterol Sulfate (2 .5mg/3ML) 0.083% [...] Available Procedures Date Code Description Status 11/21/2020 70035 MRI Lower Extremity Any Joint Co mpleted 11/21/2020 17522 MRI Lower Extremity Any Joint Co mpleted 11/16/2020 07747 Office/Outpatient Established Mo d MDM 30-39 Min Completed 11/16/2020 37936 Inject Tendon Sheath, Ligament C ompleted 08/15/2020 06762 Office/Outpatient Established Lo w MDM 20-29 Min Completed 07/04/2020 70466 Office/Outpatient Established Mo d MDM 30-39 Min Completed 07/04/2020 48268 Inject Tendon Sheath, Ligament C ompleted 06/23/2020 64232 Office/Outpatient Established Mo d MDM 30-39 Min Completed 06/23/2020 69136 Inject Tendon Sheath, Ligament C ompleted 06/13/2020 04151 Office/Outpatient Established Mo d MDM 30-39 Min Completed 06/13/2020 34423 Inject Tendon Sheath, Ligament C ompleted Medical Devices Description No Information Available Encounters Type Date Location Provider Dx Diagnosis Office Visit 08/15/2020 1:15p Ed Le MD M2 5.561 Pain in right knee Z96.651 Presence of right artificial knee joint Assessments Date Code Description Provider 11/21/2020 M76.72 Peroneal tendinitis, left leg Ba hi Sarmiento PA-C 11/21/2020 M76.72 Peroneal tendinitis, left leg MR I 11/16/2020 M76.72 Peroneal tendinitis, left leg Ba hi Sarmiento PA-C 08/15/2020 M25.561 Pain in right knee Karthik carroll MD 08/15/2020 Z96.651 Presence of right artificial kne e joint Karthik Le MD 07/04/2020 M76.72 Peroneal tendinitis, left leg St even Mimi Padilla MD 07/04/2020 M76.72 Peroneal tendinitis, left leg St even Bess. MD Randy 07/04/2020 M19.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, left ank le and foot Silas Padilla MD 07/04/2020 M19.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, left ank le and foot Silas Padilla MD 07/04/2020 M65.341 Trigger finger, right ring finge r Silas Padilla MD 06/23/2020 M76.72 Peroneal tendinitis, left leg St even Mimi Padilla MD 06/23/2020 M19.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, left ank le and foot Silas Padilla MD 06/13/2020 M76.72 Peroneal tendinitis, left leg St even Mimi Padilla MD Plan of Treatment Future Appointment(s):* 12/02/2020 10:45 am - Shar Sarmiento PA-C at [place] 11/16/2020 - Shar Sarmiento PA-C* M76.72 Peroneal tendinitis, left leg* Follow up:* [facility] after lt ankle mri with BMS Functional Status Description No Information Available Mental Status Description No Information Available Referrals Refer to Reason for Referral Status Appt Date Shane Le MD MRI LEFT ANKLE no auth req p er medicare based on medical necessity, no auth req per Stefany Kellogg at [facility], passed to mri tracker sw. Created [address] [place] [address], [address] [place] [id number] [phone] Shane Le MD MRI LEFT ANKLE no auth req p er medicare based on medical necessity, no auth req per Stefany Kellogg at [facility], passed to mri tracker sw. Created [address] [place] [address], [place] [phone] Shane Le MD REFERRAL NO AUTH REQUIRED FO R REFERRAL TO DR. MICHELLE PAIZ TO LAB NURSE. DG Created [address] [place] [address], [address] [address] [phone] Shane Le MD REFERRAL NO AUTH REQUIRED FO R REFERRAL TO DR. MICHELLE PAIZ TO LAB NURSE. LYNN Created [address] [place] [address] [phone]
--- OUTSIDE RECORDS SUMMARY | 2021-02-23 07:03 | CCD | Continuity of Care Document ---
Author Author Silas SARMIENTO PAMiguelC Organization Unknown Address [address] [place] [address] Phone [phone] Care Team Providers Care Director Stars Name Role Phone Lowell Lloyd MD AUTM [phone] Problems Active Problems Provider Date Pure hypercholesterolemia [...] Available Procedures Date Code Description Status 12/02/2020 49714 Office/Outpatient Established Mo d MDM 30-39 Min Completed 11/21/2020 29227 MRI Lower Extremity Any Joint Co mpleted 11/21/2020 60686 MRI Lower Extremity Any Joint Co mpleted 11/16/2020 12620 Office/Outpatient Established Mo d MDM 30-39 Min Completed 11/16/2020 56344 Inject Tendon Sheath, Ligament C ompleted 08/15/2020 13494 Office/Outpatient Established Lo w MDM 20-29 Min Completed 07/04/2020 70692 Office/Outpatient Established Mo d MDM 30-39 Min Completed 07/04/2020 94064 Inject Tendon Sheath, Ligament C ompleted 06/23/2020 60562 Office/Outpatient Established Mo d MDM 30-39 Min Completed 06/23/2020 19371 Inject Tendon Sheath, Ligament C ompleted 06/13/2020 41986 Office/Outpatient Established Mo d MDM 30-39 Min Completed 06/13/2020 32627 Inject Tendon Sheath, Ligament C ompleted Medical Devices Description No Information Available Encounters Type Date Location Provider Dx Diagnosis Office Visit 12/02/2020 10:45a [place] Shar Sarmiento PA-C M1 9.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, left ankle and foot M76.72 Peroneal tendinitis, left le g S96.912A Strain of unsp msl/tnd at an k/ft level, left foot, init Office Visit 08/15/2020 1:15p [place] Karthik Le MD M2 5.561 Pain in right knee Z96.651 Presence of right artificial knee joint Assessments Date Code Description Provider 12/02/2020 M19.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, left ank le and foot Shar Sarmiento PA-C 12/02/2020 M76.72 Peroneal tendinitis, left leg Ba hi Sarmiento PA-C 12/02/2020 S96.912A Strain of unspecifie d muscle and tendon at ankle and foot level, left foot, initial encounter Shar Sarmiento PA-C 11/21/2020 M76.72 Peroneal tendinitis, left leg Ba hi Sarmiento PA-C 11/21/2020 M76.72 Peroneal tendinitis, left leg MR I 11/16/2020 M76.72 Peroneal tendinitis, left leg Ba hi Sarmiento PA-C 08/15/2020 M25.561 Pain in right knee D. Walter carroll MD 08/15/2020 Z96.651 Presence of right artificial kne e joint D. Walter Le MD 07/04/2020 M76.72 Peroneal tendinitis, left leg St duane Padilla MD 07/04/2020 M76.72 Peroneal tendinitis, left leg St duane Padilla MD 07/04/2020 M19.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, left ank le and foot Silas Padilla MD 07/04/2020 M19.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, left ank le and foot Silas Padilla MD 07/04/2020 M65.341 Trigger finger, right ring finge r Silas Padilla MD 06/23/2020 M76.72 Peroneal tendinitis, left leg duane Padilla MD 06/23/2020 M19.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, left ank le and foot Silas Padilla MD 06/13/2020 M76.72 Peroneal tendinitis, left leg St duane Padilla MD Plan of Treatment 12/02/2020 - Shar Sarmiento PA-C* M19.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, left ankle and foot * M76.72 Peroneal tendinitis, left leg * S96.912A Strain of unspecified muscle and tendon at ankle and foot level, left foot, initial encounter* New Orders:* Referral, Ordered: 12/02/20 Functional Status Description No Information Available Mental Status Description No Information Available Referrals Refer to Dr Reason for Referral Status Appt Date Shane Le MD MRI LEFT ANKLE no auth req p er medicare based on medical necessity, no auth req per Stefany B at [facility], passed to mri tracker . Created [address] [place] [address] [phone] Shane Le MD MRI LEFT ANKLE no auth req p er medicare based on medical necessity, no auth req per Stefany B at [facility], passed to mri tracker sw. Created [facility] [place] [address] [phone] Shane Le MD REFERRAL NO AUTH REQUIRED FO R REFERRAL TO DR. MICHELLE PAIZ TO ELIGIBILITY EXAMINER. DG Created [facility] [place] [address] [phone] Shane Le MD REFERRAL NO AUTH REQUIRED FO R REFERRAL TO DR. MICHELLE PAIZ TO ELIGIBILITY EXAMINER. DG Created [facility] [place] [address] [phone]
--- OUTSIDE RECORDS SUMMARY | 2021-02-23 07:03 | CCD | Continuity of Care Document ---
Author Organization Unknown Address Unknown Phone Unavailable Care Team Providers [facility] [employer] Name Role Phone Ivan Corona MD AUTM [phone] Jackson Castellano DO AUTM [phone] Nir Mcgovern MD AUTM [phone] Lowell Lloyd MD AUTM [phone] Janusz King MD AUTM [phone] Tim Espinoza MD AUTM [phone] Walter Le MD AUTM [phone] Sarwat Venegas MD AUTM [phone] Ross Torres MD AUTM [phone] Problems Active Problems Provider Date Dyspnea Mann Hope MD Onset: 05/16/2011 Primary cardiomyopathy Mann Hope MD Onset: 05/16/2011 Atrial fibrillation Mann Hope MD Onset: 05/16/2011 Electrocardiogram abnormal Mann Hope MD Onset: 2011 First degree atrioventricular block Mann Hope MD Onse t: 05/16/2011 Body mass index 30+ - obesity Mann Hope MD Onset: 04/2011 Pure hypercholesterolemia Mann Hope MD Onset: 012 Post-inflammatory pulmonary fibrosis Mann Hope MD Ons et: 05/16/2011 Diverticulitis of colon Mann Hope MD Onset: 2 Aneurysm of thoracic aorta Mann Hope MD Onset: 2012 Precordial pain Mann Hope MD Onset: 11/12/2014 Precordial pain Mann Hope MD Onset: 05/17/2015 Symptom of skin and integumentary tissue Mann Hope MD Onset: 05/17/2015 Arthritis Mann Hope MD Onset: 05/17/2015 Paroxysmal atrial fibrillation Mann Hope MD Onset: Disorder of tongue Mann Hope MD Onset: 05/17/2016 Preoperative cardiovascular examination Mann Hope MD Onset: 10/08/2017 Benign hypertensive heart disease with congestive card iac failure Mann Hope MD Onset: 05/17/2020 Familial cardiomyopathy Mann Hope MD Onset: Essential hypertension Mann Hope MD Onset: 05/02/2020 Chronic diastolic heart failure Mann Hope MD Onset: 0 05/17/2020 Social History Type Date Description Comments Sex Unknown Tobacco Use Start: Unknown Never Smoked Cigarettes ETOH Use Does not consume alcohol Tobacco Use Start: Unknown Patient has never smoked Exercise Type/Frequency Walks daily <1 mile Exercise Limitations Shortness Of Breath with wa lking upstairs Exercise Limitations Joint Pain right knee Allergies, Adverse Reactions, Alerts Active Allergies Criticality Reaction | Severity Comments Date NKDA Unable to assess criticality 03/11/2007 Inactive Allergies Lipitor Unable to assess criticality elevated enz ymes 09/03/2006 Medications Active Medications SIG Qnty Indications Ordering Provide r Date Atorvastatin Calcium 20mg Tablets Take One Tablet By Mouth AT Night 90tabs Mann Hope MD 04/2020 Esomeprazole Magnesium 40mg Capsul es DR Take One Capsule By Mouth Every Day 90caps Mann alvarez MD 09/13/2020 Flecainide Acetate 50mg Tablets 1 by mouth twice a day I48.0 Mann Hope MD 09/05/2020 Eliquis 5mg Tablets Take One Tablet By Mouth Twice A Day 180tabs I48.0 Mann Hope MD 09/05/2020 Vitamin B12 1000mcg Tablets ER 1 by mouth every day Unknown 09/04/2020 Vitamin D 50mcg (2000 Ut) Tablets 2 by mouth every day Unknown 09/04/2020 Finasteride 5mg Tablets 1 by mouth every day Unknown 09/04/2020 Tamsulosin HCL 0.4mg Capsules 1 by mouth every day Unknown 09/04/2020 Gabapentin 300mg Capsules 1 by mouth daily Unknown 09/04/2020 Benadryl Allergy 25mg Tablets 1 by mouth daily at bedtime as needed Unknown 09/04 Tylenol 8 Hour 650mg Tablets ER 1 by mouth 2-3 times a day Unknown 09/04/2020 Albuterol Sulfate HFA 108(90Base) mcg/Act Aerosol inhale two puffs as needed every 4 hours Unknown 09/04/2020 Chlorthalidone 25mg Tablets 1/2 by mouth every day 45tabs I11.0 Mann Hope MD 06/03/2020 Allopurinol 300mg Tablets Take One Tablet By Mouth Every Day 90tabs Mann Hope MD 05/30/2020 Spironolactone 25mg Tablets 1/2 by mouth every day 45tabs I10 Mann Hope MD 05/17/2020 I50.32 I11.0 Amlodipine Besylate 5mg Tablets 1 by mouth twice a day; hold for sitting resting systolic blood pressure less than 135 mmhg 180tabs I11.0 Mann Hope MD 05/17/2020 Xanax 0.5mg Tablets 2 by mouth once a day as needed Unknown 05/16/2015 Atenolol 25mg Tablets Take One Tablet By Mouth Every Day 90tabs Mann Hope MD History Medications Flecainide Acetate 50mg Tablets 1 by mouth daily I48.0 Unknown 09/04/2020 - Nexium 40mg Capsules DR 1 by mouth every day Unknown 09/04/2020 - 04/2020 Flecainide Acetate 100mg Tablets Take One Tablet By Mouth Twice A Day 180tabs Mann Hope MD 0 08/30/2020 - 09/04/2020 Flecainide Acetate 50mg Tablets 1 by mouth daily I48.0 Mann Hope MD 08/15/2020 - 09/05/2020 Eliquis 2.5mg Tablets 1 by mouth twice a day 180tabs I48.0 Mann Hope MD 08/15/2020 - 09/05/2020 Immunizations Description No Information Available Vital Signs Date Vital Result Comment 09/05/2020 12:23pm Weight 255.00 lb Home Weight 250lb home weight Height 69 inches 5'9" BMI (Body Mass Index) 37.7 kg/m2 Heart Rate 60 /min regular Respiratory Rate 16 /min BP Systolic Sitting 136 mmHg large cuff, Ra BP Diastolic Sitting 70 mmHg large cuff, Ra BP Systolic Lying Down 138 mmHg BP Diastolic Lying Down 70 mmHg 06/03/2020 12:24pm Weight 260.00 lb Home Weight 260lb home weight Height 69 inches 5'9" BMI (Body Mass Index) 38.4 kg/m2 Heart Rate 56 /min regular Respiratory Rate 16 /min BP Systolic Sitting 158 mmHg large cuff, Ra; drif ting to 135/69 after 10min BP Diastolic Sitting 82 mmHg large cuff, Ra; dri fting to 135/69 after 10min Results Test Acquired Date Facility Test Result H/L Range Note Renal Profile 11/22/2020 [facility] Glucose 180 Blood Urea Nitrogen 25.9 Creatinine 1.1 GFR (Calculated) 66 Sodium 134.1 Potassium 4.51 Chloride 96.4 Carbon Dioxide 30.7 Calcium 9.4 Phosphorus 3.2 Albumin 4.2 CBC without Differential 11/22/2020 [facility] White Blood Count 16.1 Red Blood Count 7.39 Platelets 268 Hemoglobin 14.8 Hematocrit 47.3 CBC No Diff 08/29/2020 [facility] nter [phone] White Blood Count 14.4 10 High 4.0-10.0 [...] Blood Cell % 0.0 % Normal 0-0 CMP 08/29/2020 [facility] nter [phone] Glucose, Fasting 137 mg/dL High 70-100 Blood [...] Ratio 1.0 Normal Laboratory test finding 08/29/2020 [facility] [phone] NT-Pro BNP 24 pg/mL Normal <125 Uric Acid 4.9 mg/dL Normal 3.5-7.2 Renal Profile 06/16/2020 [facility] nter [phone] Glucose, Fasting 152 mg/dL High 70-100 Blood Urea Nitrogen 24 mg/dL High 7-18 Creatinine For GFR 1.07 mg/dL Normal 0.70-1.30 Glomerular Filtration Rate > 60.0 Normal >49 2 Sodium Level 135 mEq/L Low 136-145 Potassium Serum 4.1 mEq/L Normal 3.5-5.1 Chloride Level 99 mEq/L Normal 98-107 Carbon Dioxide Level 31 mEq/L Normal 21-32 Anion Gap 5 mEq/L Low 8-16 Calcium Level 9.2 mg/dL Normal 8.8-10.2 Phosphorus Level 4.1 mg/dL Normal 2.5-4.9 Albumin 3.8 GM/DL Normal 3.2-5.2 1 Units are mL/min/1.73 m2 Chronic Kidney Disease Staging per NKF: Stage I & II GFR >=60 Normal to Mildly Decreased Stage III GFR 30-59 Moderately Decreased Stage IV GFR 15-29 Severely Decreased Stage V GFR <15 Very Little GFR Left ESRD GFR <15 on [employer] 2 Units are mL/min/1.73 m2 Chronic Kidney Disease Staging per NKF: Stage I & II GFR >=60 Normal to Mildly Decreased Stage III GFR 30-59 Moderately Decreased Stage IV GFR 15-29 Severely Decreased Stage V GFR <15 Very Little GFR Left ESRD GFR <15 on [employer] Procedures Date Code Description Status 11/11/2020 05828 Echocardiogram 2-D Doppler Color Completed 09/05/2020 52397 Office/Outpatient Established Mo d MDM 30-39 Min Completed 09/05/2020 95408 ECG 12-Lead Completed 06/03/2020 00716 Office/Outpatient Established Lo w MDM 20-29 Min Completed Medical Devices Description No Information Available Encounters Type Date Location Provider Dx Diagnosis Office Visit 09/05/2020 12:00p Main Office Mann Hope MD I50.32 Chronic diastolic (congestive) heart failure I48.0 Paroxysmal atrial fibrillati on I44.0 Atrioventricular block, firs t degree R94.31 Abnormal electrocardiogram [ ECG] [EKG] I11.0 Hypertensive heart disease w ith heart failure I71.2 Thoracic aortic aneurysm, wi thout rupture Office Visit 06/03/2020 12:15p Main Office Mann Hope MD I11.0 Hypertensive heart disease with heart failure Assessments Date Code Description Provider 11/11/2020 I11.0 Hypertensive heart disease with heart failure ECHO 11/11/2020 I71.2 Thoracic aortic aneurysm, withou t rupture ECHO 11/11/2020 R94.31 Abnormal electrocardiogram [ECG] [EKG] ECHO 11/11/2020 I48.0 Paroxysmal atrial fibrillation E CHO 11/11/2020 I50.32 Chronic diastolic (congestive) h eart failure ECHO 09/05/2020 I50.32 Chronic diastolic (congestive) h eart failure Mann Hope MD 09/05/2020 I48.0 Paroxysmal atrial fibrillation Vidal Hope MD 09/05/2020 I44.0 Atrioventricular block, first de gree Mann Hope MD 09/05/2020 R94.31 Abnormal electrocardiogram [ECG] [EKG] Mann Hope MD 09/05/2020 I11.0 Hypertensive heart disease with heart failure Mann Hope MD 09/05/2020 I71.2 Thoracic aortic aneurysm, withou t rupture Mann Hope MD 06/03/2020 I11.0 Hypertensive heart disease with heart failure Mann Hope MD Plan of Treatment Future Appointment(s):* 03/08/2021 12:15 pm - Mann Hope MD at Main Office 09/05/2020 - Mann Hope MD* I50.32 Chronic diastolic (congestive) heart failure* New Labs:* CBC No Diff, Scheduled: 12/12/20 * CMP, Scheduled: 12/12/20 * NT Probnp QN Ser/Plas, Scheduled: 12/12/20 * Uric Acid, Scheduled: 12/12/20 * Recommendations:* Chief limitation is orthopedic. No symptoms or signs of congestion. Recent chemistry shows a normal BNP level. Electrolytes are in balance and renal function has normalized. Encouraged continued modest salt and caloric restriction (with his glucose intolerance/diabetes mellitus he should be following a low carbohydrate diet Should continue to avoid all nonsteroidal anti-inflammatory drug therapy. Should he experience a flare up of his gout 1 or 2 doses of colchicine would likely be tolerated. Remains on allopurinol as before. No change has been made to his low-dose chlorthalidone and spironolactone. Follow-up blood work in 3 months Requested he contact us should he notice increasing shortness of breath with effort or orthopnea. * I48.0 Paroxysmal atrial fibrillation* New Medication:* Flecainide Acetate 50 mg - 1 by mouth twice a day * Eliquis 5 mg - Take One Tablet By Mouth Twice A Day * Recommendations:* Infrequent palpitations, with recent event monitor showing this often is associated with sinus rhythm alone. No evidence of recurrent atrial fibrillation on his current antiarrhythmic therapy. No symptoms or signs of embolic phenomenon or hemorrhagic complication on his present Eliquis. The dosage of his Eliquis should be 5 mg twice a day now that his renal function has normalized. His flecainide therapy should also be at least 50 mg twice a day. No change has been made to his low-dose atenolol. Would check his follow-up complete blood count in 3 months. Should continue avoiding of caffeinated beverages, alcohol, nicotine, [id number] decongestants etc. Again would emphasize the importance of weight reduction will reduce his risk of rhythm disturbances. Requested he promptly contact us should he develop abnormal bleeding. * I44.0 Atrioventricular block, first degree* Recommendations:* GA interval was not changed. Has been free of symptom to suggest high-grade AV block or bradyarrhythmia. Will continue to monitor this conduction disturbance. * R94.31 Abnormal electrocardiogram [ECG] [EKG]* Recommendations:* Remains free of effort related chest, jaw, or arm discomforts. EKG appearance today is stable. Remains on protective combination atenolol, atorvastatin, and Eliquis. Encouraged to contact us should he develop effort related chest, jaw, or arm discomforts. * I11.0 Hypertensive heart disease with heart failure* Recommendations:* Reviewed his home blood pressure readings. Office blood pressure readings today would be considered adequately controlled on his combination therapy. Again emphasized the importance of salt and caloric restriction along with his regular exercise. No change was made to his atenolol, amlodipine, chlorthalidone or spironolactone. Follow-up chemistry will be obtained in 3 months. * I71.2 Thoracic aortic aneurysm, without rupture* Recommendations:* An incidental echocardiographic finding. Continued optimal blood pressure and w eight reduction control. A followup echocardiogram will be obtained September 2020, to reassess aortic diameters. * All * Comments:* I will ensure that the aforementioned test findings are reported to you along with any further recommendations. Thank you for allowing me to participate in the care of your patient. Best regards. * Follow up:* Followup appointment with EKG in 6 months. We would be pleased to reassess the patient at any time. Functional Status Functional Condition Comment Date Status Independent with all ADL's Activ e Mental Status Description No Information Available Referrals Description No Information Available
--- OUTSIDE RECORDS SUMMARY | 2021-02-23 07:04 | CCD ---
Author Author [facility] Address Unknown Phone Unavailable Care Team Providers Care Internal Communications Writer Name Role Phone Isabella Bal MD Unavailable Unavailable Isabella Bal MD Unavailable Unavailable Isabella Bal MD Unavailable Unavailable Isabella Bal MD Unavailable Unavailable Isabella Bal MD Unavailable Unavailable Isabella Bal MD Unavailable Unavailable Isabella Bal MD Unavailable Unavailable Isabella Bal MD Unavailable Unavailable Isabella Bal MD Unavailable Unavailable Isabella Bal MD Unavailable Unavailable Isabella Bal MD Unavailable Unavailable Isabella Bal MD Unavailable Unavailable Isabella Bal MD Unavailable Unavailable Isabella Bal MD Unavailable Unavailable Isabella Bal MD Unavailable Unavailable Isabella Bal MD Unavailable Unavailable Isabella Bal MD Unavailable Unavailable Isabella Bal MD Unavailable Unavailable Isabella Bal MD Unavailable Unavailable Isabella Bal MD Unavailable Unavailable Isabella Bal MD Unavailable Unavailable Isabella Bal MD Unavailable Unavailable Isabella Bal MD Unavailable Unavailable Isabella Bal MD Unavailable Unavailable Isabella Bal MD Unavailable Unavailable Isabella Bal MD Unavailable Unavailable Isabella Bal MD Unavailable Unavailable Isabella Bal MD Unavailable Unavailable Isabella Bal MD Unavailable Unavailable Isabella Bal MD Unavailable Unavailable Isabella Bal MD Unavailable Unavailable Isabella Bal MD Unavailable Unavailable Isabella Bal MD Unavailable Unavailable Isabella Bal MD Unavailable Unavailable Isabella Bal MD Unavailable Unavailable Greenky, S Matt MD Unavailable Unavailable Greenky, S Matt MD Unavailable Unavailable Greenky, S Matt MD Unavailable Unavailable Greenky, S Matt MD Unavailable Unavailable Greenky, S Matt MD Unavailable Unavailable Greenky, S Matt MD Unavailable Unavailable Greenky, S Matt MD Unavailable Unavailable Greenky, S Matt MD Unavailable Unavailable Greenky, S Matt MD Unavailable Unavailable Greenky, S Matt MD Unavailable Unavailable Greenky, S Matt MD Unavailable Unavailable Greenky, S Matt MD Unavailable Unavailable Greenky, S Matt MD Unavailable Unavailable Greenky, S Matt MD Unavailable Unavailable Greenky, S Matt MD Unavailable Unavailable Greenky, S Matt MD Unavailable Unavailable Greenky, S Matt MD Unavailable Unavailable Greenky, S Matt MD Unavailable Unavailable Greenky, S Matt MD Unavailable Unavailable Greenky, S Matt MD Unavailable Unavailable Greenky, S Matt MD Unavailable Unavailable Greenky, S Matt MD Unavailable Unavailable Greenky, S Matt MD Unavailable Unavailable Greenky, S Matt MD Unavailable Unavailable Greenky, S Matt MD Unavailable Unavailable Greenky, S Matt MD Unavailable Unavailable Greenky, S Matt MD Unavailable Unavailable Greenky, S Matt MD Unavailable Unavailable Greenky, S Matt MD Unavailable Unavailable Greenky, S Matt MD Unavailable Unavailable Greenky, S Matt MD Unavailable Unavailable Greenky, S Matt MD Unavailable Unavailable Greenky, S Matt MD Unavailable Unavailable Greenky, S Matt MD Unavailable Unavailable Greenky, S Matt MD Unavailable Unavailable Greenky, S Matt MD Unavailable Unavailable Greenky, S Matt MD Unavailable Unavailable Greenky, S Matt MD Unavailable Unavailable Greenky, S Matt MD Unavailable Unavailable Greenky, S Matt MD Unavailable Unavailable Greenky, S Matt MD Unavailable Unavailable Greenky, S Matt MD Unavailable Unavailable Greenky, S Matt MD Unavailable Unavailable Greenky, S Matt MD Unavailable Unavailable Greenky, S Matt MD Unavailable Unavailable Greenky, S Matt MD Unavailable Unavailable Greenky, S Matt MD Unavailable Unavailable Greenky, S Matt MD Unavailable Unavailable Greenky, S Matt MD Unavailable Unavailable Greenky, S Matt MD Unavailable Unavailable Greenky, S Matt MD Unavailable Unavailable Greenky, S Matt MD Unavailable Unavailable Greenky, S Matt MD Unavailable Unavailable Greenky, S Matt MD Unavailable Unavailable Bess Padilla MD Unavailable Unavailable Bess Padilla MD Unavailable Unavailable Fish, B Silas LAGOS Unavailable Unavailable Fish, B Silas LAGOS Unavailable Unavailable Fish, B Silas LAGOS Unavailable Unavailable Fish, B Silas LAGOS Unavailable Unavailable Fish, B Silas LAGOS Unavailable Unavailable Fish, B Silas LAGOS Unavailable Unavailable Fish, B Silas LAGOS Unavailable Unavailable Fish, B Silas LAGOS Unavailable Unavailable Fish, B Silas LAGOS Unavailable Unavailable Fish, B Silas LAGOS Unavailable Unavailable Fish, B Silas LAGOS Unavailable Unavailable Fish, B Silas LAGOS Unavailable Unavailable Fish, B Silsa LAGOS Unavailable Unavailable Fish, B Silas LAGOS Unavailable Unavailable Fish, B Silas LAGOS Unavailable Unavailable Fish, B Silas LAGOS Unavailable Unavailable Fish, B Silas LAGOS Unavailable Unavailable Fish, B Silas LAGOS Unavailable Unavailable Fish, B Silas LAGOS Unavailable Unavailable Fish, B Silas LAGOS Unavailable Unavailable Fish, B Silas LAGOS Unavailable Unavailable Fish, B Silas LAGOS Unavailable Unavailable Fish, B Silas LAGOS Unavailable Unavailable Fish, B Silas LAGOS Unavailable Unavailable Fish, B Silas LAGOS Unavailable Unavailable Fish, B Silas LAGOS Unavailable Unavailable Fish, B Silas LAGOS Unavailable Unavailable Fish, B Silas LAGOS Unavailable Unavailable Fish, B Silas LAGOS Unavailable Unavailable Fish, B Silas LAGOS Unavailable Unavailable Fish, B Silas LAGOS Unavailable Unavailable Fish, B Silas LAGOS Unavailable Unavailable Fish, B Silas LAGOS Unavailable Unavailable Fish, B Silas LAGOS Unavailable Unavailable Fish, B Silas LAGOS Unavailable Unavailable Fish, B Silas LAGOS Unavailable Unavailable Fish, B Silas LAGOS Unavailable Unavailable Fish, B Silas LAGOS Unavailable Unavailable Fish, B Silas LAGOS Unavailable Unavailable Fish, B Silas LAGOS Unavailable Unavailable Fish, B Silas LAGOS Unavailable Unavailable Fish, B Silas LAGOS Unavailable Unavailable Fish, B Silas LAGOS Unavailable Unavailable Fish, B Silas LAGOS Unavailable Unavailable Fish, B Silas LAGOS Unavailable Unavailable Fish, B Silas LAGOS Unavailable Unavailable Fish, B Silas LAGOS Unavailable Unavailable Fish, B Silas LAGOS Unavailable Unavailable Fish, B Silas LAGOS Unavailable Unavailable Fish, B Silas LAGOS Unavailable Unavailable Fish, B Silas LAGOS Unavailable Unavailable Fish, B Silas LAGOS Unavailable Unavailable Fish, B Silas LAGOS Unavailable Unavailable Fish, B Silas LAGOS Unavailable Unavailable Nicholas POLLOCK MD Unavailable Unavailable Nicholas POLLOCK MD Unavailable Unavailable Nicholas POLLOCK MD Unavailable Unavailable Nicholas POLLOCK MD Unavailable Unavailable Nicholas POLLOCK MD Unavailable Unavailable Nicholas POLLOCK MD Unavailable Unavailable Nicholas POLLOCK MD Unavailable Unavailable Nicholas POLLOCK MD Unavailable Unavailable Nicholas POLLOCK MD Unavailable Unavailable POLLOCKNicholas MD Unavailable Unavailable POLLOCKNicholas MD Unavailable Unavailable POLLOCK E GREGOR LAGOS Unavailable Unavailable POLLOCK E GREGOR LAGOS Unavailable Unavailable POLLOCK E GREGOR LAGOS Unavailable Unavailable POLLOCK E GREGOR LAGOS Unavailable Unavailable POLLOCK E GREGOR LAGOS Unavailable Unavailable POLLOCK E GREGOR LAGOS Unavailable Unavailable POLLOCK E GREGOR LAGOS Unavailable Unavailable POLLOCK E GREGOR LAGOS Unavailable Unavailable POLLOCK E GREGOR LAGOS Unavailable Unavailable POLLOCK E GREGOR LAGOS Unavailable Unavailable POLLOCK E GREGOR LAGOS Unavailable Unavailable POLLOCK E GREGOR LAGOS Unavailable Unavailable POLLOCK E GREGOR LAGOS Unavailable Unavailable POLLOCKNicholas MD Unavailable Unavailable POLLOCK E GREGOR LAGOS Unavailable Unavailable POLLOCK E GREGOR LAGOS Unavailable Unavailable POLLOCK E GREGOR LAGOS Unavailable Unavailable POLLOCK, E GREGOR LAGOS Unavailable Unavailable POLLOCK, E GREGOR LAGOS Unavailable Unavailable POLLOCK, E RGEGOR LAGOS Unavailable Unavailable POLLOCK, E GREGOR LAGOS Unavailable Unavailable POLLOCK E GREGOR LAGOS Unavailable Unavailable POLLOCK, E GREGOR LAGOS Unavailable Unavailable POLLOCK E GREGOR LAGOS Unavailable Unavailable PLOLOCK E GREGOR LAGOS Unavailable Unavailable POLLOCK E GREGOR LAGOS Unavailable Unavailable POLLOCK E GREGOR LAGOS Unavailable Unavailable POLLOCK E GREGOR LAGOS Unavailable Unavailable POLLOCKNicholas MD Unavailable Unavailable POLLOCK E GREGOR LAGOS Unavailable Unavailable POLLOCKNicholas MD Unavailable Unavailable POLLOCK E GREGOR LAGOS Unavailable Unavailable POLLOCK E GREGOR LAGOS Unavailable Unavailable POLLOCK, E GREGOR LAGOS Unavailable Unavailable POLLOCK, E GREGOR LAGOS Unavailable Unavailable POLLOCK E GREGOR LAGOS Unavailable Unavailable POLLOCK E GREGOR LAGOS Unavailable Unavailable POLLOCK E GREGOR LAGOS Unavailable Unavailable POLLOCK E GREGOR LAGOS Unavailable Unavailable POLLOCK E GREGOR LAGOS Unavailable Unavailable POLLOCK E GREGOR LAGOS Unavailable Unavailable POLLOCK E GREGOR LAGOS Unavailable Unavailable POLLOCK E GREGOR LAGOS Unavailable Unavailable Cash KLINE MD Unavailable Unavailable Cash KLINE MD Unavailable Unavailable Cash KLINE MD Unavailable Unavailable Cash KLINE MD Unavailable Unavailable Cash KLINE MD Unavailable Unavailable Cash KLINE MD Unavailable Unavailable Cash KLINE MD Unavailable Unavailable Cash KLINE MD Unavailable Unavailable Cash KLINE MD Unavailable Unavailable Cash KLINE MD Unavailable Unavailable Cash KLINE MD Unavailable Unavailable Cash KLINE MD Unavailable Unavailable Cash KLINE MD Unavailable Unavailable Cash KLINE MD Unavailable Unavailable Cash KLINE MD Unavailable Unavailable EMERTON, A FRANCIE MD Unavailable Unavailable EMERTON, A FRANCIE MD Unavailable Unavailable EMERTON, A FRANCIE MD Unavailable Unavailable EMERTON, A FRANCIE MD Unavailable Unavailable EMERTON, A FRANCIE MD Unavailable Unavailable EMERTON, A FRANCIE MD Unavailable Unavailable EMERTON, A FRANCIE MD Unavailable Unavailable EMERTON, A FRANCIE MD Unavailable Unavailable EMERTON, A FRANCIE MD Unavailable Unavailable EMERTON, A FRANCIE MD Unavailable Unavailable EMERTON, A FRANCIE MD Unavailable Unavailable EMERTON, A FRANCIE MD Unavailable Unavailable EMERTON, A FRANCIE MD Unavailable Unavailable EMERTON, A FRANCIE MD Unavailable Unavailable EMERTON, A FRANCIE MD Unavailable Unavailable EMERTON, A FRANCIE MD Unavailable Unavailable EMERTON, A FRANCIE MD Unavailable Unavailable EMERTON, A FRANCIE MD Unavailable Unavailable EMERTON, A FRANCIE MD Unavailable Unavailable EMERTON, A FRANCIE MD Unavailable Unavailable EMERTON, A FRANCIE MD Unavailable Unavailable EMERTON, A FRANCIE MD Unavailable Unavailable EMERTON, A FRANCIE MD Unavailable Unavailable EMERTON, A FRANCIE MD Unavailable Unavailable EMERTON, A FRANCIE MD Unavailable Unavailable EMERTON, A FRANCIE MD Unavailable Unavailable EMERTON, A FRANCIE MD Unavailable Unavailable EMERTON, A FRANCIE MD Unavailable Unavailable EMERTON, A FRANCIE MD Unavailable Unavailable EMERTON, A FRANCIE MD Unavailable Unavailable EMERTON, A FRANCIE MD Unavailable Unavailable EMERTON, A FRANCIE MD Unavailable Unavailable EMERTON, A FRANCIE MD Unavailable Unavailable EMERTON, A FRANCIE MD Unavailable Unavailable EMERTON, A FRANCIE MD Unavailable Unavailable EMERTON, A FRANCIE MD Unavailable Unavailable EMERTON, A FRANCIE MD Unavailable Unavailable EMERTON, A FRANCIE MD Unavailable Unavailable EMERTON, A FRANCIE MD Unavailable Unavailable EMERTON, A FRANCIE MD Unavailable Unavailable EMERTON, A FRANCIE MD Unavailable Unavailable EMERTON, A FRANCIE MD Unavailable Unavailable EMERTON, A FRANCIE MD Unavailable Unavailable EMERTON, A FRANCIE MD Unavailable Unavailable EMERTON, A FRANCIE MD Unavailable Unavailable EMERTON, A FRANCIE MD Unavailable Unavailable EMERTON, A FRANCIE MD Unavailable Unavailable EMERTON, A FRANCIE MD Unavailable Unavailable EMERTON, A FRANCIE MD Unavailable Unavailable EMERTON, A FRANCIE MD Unavailable Unavailable EMERTON, A FRANCIE MD Unavailable Unavailable EMERTON, A FRANCIE MD Unavailable Unavailable EMERTON, A FRANCIE MD Unavailable Unavailable EMERTON, A FRANCIE MD Unavailable Unavailable EMERTON, A FRANCIE MD Unavailable Unavailable EMERTON, A FRANCIE MD Unavailable Unavailable EMERTON, A FRANCIE MD Unavailable Unavailable EMERTON, Cash MARMOLEJO MD Unavailable Unavailable EMERTON, Cash MARMOLEJO MD Unavailable Unavailable EMERTON, Cash MARMOLEJO MD Unavailable Unavailable EMERTON, Cash MARMOLEJO MD Unavailable Unavailable EMERTON, Cash MARMOLEJO MD Unavailable Unavailable MERCY, Radha GERMAIN MD Unavailable Unavailable MERCY, Radha GERMAIN MD Unavailable Unavailable MERCY, Radha GERMAIN MD Unavailable Unavailable MERCY, Radha GERMAIN MD Unavailable Unavailable MERCY, Radha GERMAIN MD Unavailable Unavailable MERCY, Radha GERMAIN MD Unavailable Unavailable MERCY, Radha GERMAIN MD Unavailable Unavailable MERCY, Radha GERMAIN MD Unavailable Unavailable MERCY, Radha GERMAIN MD Unavailable Unavailable MERCY, Radha GERMAIN MD Unavailable Unavailable MERCY, Radha GERMAIN MD Unavailable Unavailable MERCY, O MARCELLUS LAGOS Unavailable Unavailable MERCY, O MARCELLUS LAGOS Unavailable Unavailable MERCY, O MARCELLUS LAGOS Unavailable Unavailable MERCY, O MARCELLUS LAGOS Unavailable Unavailable MERCY, Radha GERMAIN MD Unavailable Unavailable MERCY, Radha GERMAIN MD Unavailable Unavailable MERCY, Radha GERMAIN MD Unavailable Unavailable MERCY, Radha GERMAIN MD Unavailable Unavailable MERCY, Radha GERMAIN MD Unavailable Unavailable MERCY, Radha GERMAIN MD Unavailable Unavailable MERCY, O MARCELLUS LAGOS Unavailable Unavailable MERCY, Radha GERMAIN MD Unavailable Unavailable MERCY, Radha GERMAIN MD Unavailable Unavailable MERCY, Radha GERMAIN MD Unavailable Unavailable MERCY, Radha GERMAIN MD Unavailable Unavailable MERCY, Radha GERMAIN MD Unavailable Unavailable MERCY, Radha GERMAIN MD Unavailable Unavailable MERCY, O MARCELLUS LAGOS Unavailable Unavailable MERCY, O MARCELLUS LAGOS Unavailable Unavailable MERCY, Radha GERMAIN MD Unavailable Unavailable MERCY, Radha GERMAIN MD Unavailable Unavailable MERCY, Radha GERMAIN MD Unavailable Unavailable MERCY, Radha GERMAIN MD Unavailable Unavailable MERCY, Radha GERMAIN MD Unavailable Unavailable MERCY, Radha GERMAIN MD Unavailable Unavailable MERCY, Radha GERMAIN MD Unavailable Unavailable MERCY, Radha GERMAIN MD Unavailable Unavailable MERCY, Radha GERMAIN MD Unavailable Unavailable MERCY, Radha GERMAIN MD Unavailable Unavailable MERCY, Radha GERMAIN MD Unavailable Unavailable MERCY, Radha GERMAIN MD Unavailable Unavailable MERCY, Radha GERMAIN MD Unavailable Unavailable MERCY, O MARCELLUS ALGOS Unavailable Unavailable MERCY, O MARCELLUS LAGOS Unavailable Unavailable Isidra Sarmiento PA Unavailable Unavailable Isidra Sarmiento PA Unavailable Unavailable Isidra Sarmiento PA Unavailable Unavailable Isidra Sarmiento PA Unavailable Unavailable Isidra Sarmiento PA Unavailable Unavailable Isidra Sarmiento PA Unavailable Unavailable Isidra Sarmiento PA Unavailable Unavailable Isidra Sarmiento PA Unavailable Unavailable Isidra Sarmiento PA Unavailable Unavailable Sarmiento, M Barratt PA Unavailable Unavailable Sarmiento, M Barratt PA Unavailable Unavailable Sarmiento, M Barratt PA Unavailable Unavailable Sarmiento, M Barratt PA Unavailable Unavailable Sarmiento, M Barratt PA Unavailable Unavailable Asrmiento, M Barratt PA Unavailable Unavailable Sarmiento, M Barratt PA Unavailable Unavailable Sarmiento, M Barratt PA Unavailable Unavailable Sarmiento, M Barratt PA Unavailable Unavailable Sarmiento, M Barratt PA Unavailable Unavailable Sarmiento, M Barratt PA Unavailable Unavailable Sarmiento, M Barratt PA Unavailable Unavailable Sarmiento, M Barratt PA Unavailable Unavailable Sarmiento, M Barratt PA Unavailable Unavailable Sarmiento, M Barratt PA Unavailable Unavailable Sarmiento, M Barratt PA Unavailable Unavailable Sarmiento, M Barratt PA Unavailable Unavailable Sarmiento, M Barratt PA Unavailable Unavailable Sarmiento, M Barratt PA Unavailable Unavailable Sarmiento, M Barratt PA Unavailable Unavailable Rechlin, P Jackson DO Unavailable Unavailable Rechlin, P Jackson DO Unavailable Unavailable Rechlin, P Jackson DO Unavailable Unavailable Rechlin, P Jackson DO Unavailable Unavailable Rechlin, P Jackson DO Unavailable Unavailable Rechlin, P Jackson DO Unavailable Unavailable Rechlin, P Jackson DO Unavailable Unavailable Rechlin, P Jackson DO Unavailable Unavailable Rechlin, P Jackson DO Unavailable Unavailable Rechlin, P Jackson DO Unavailable Unavailable Rechlin, P Jackson DO Unavailable Unavailable Rechlin, P Jackson DO Unavailable Unavailable Rechlin, P Jackson DO Unavailable Unavailable Rechlin, P Jackson DO Unavailable Unavailable Rechlin, P Jackson DO Unavailable Unavailable Rechlin, P Jackson DO Unavailable Unavailable Rechlin, P Jackson DO Unavailable Unavailable Rechlin, P Jackson DO Unavailable Unavailable Rechlin, P Jackson DO Unavailable Unavailable Rechlin, P Jackson DO Unavailable Unavailable Rechlin, P Jackson DO Unavailable Unavailable Rechlin, P Jackson DO Unavailable Unavailable Rechlin, P Jackson DO Unavailable Unavailable Rechlin, P Jackson DO Unavailable Unavailable Rechlin, P Jackson DO Unavailable Unavailable Rechlin, P Jackson DO Unavailable Unavailable Rechlin, P Jackson DO Unavailable Unavailable Rechlin, P Jackson DO Unavailable Unavailable Rechlin, P Jackson DO Unavailable Unavailable Rechlin, P Jackson DO Unavailable Unavailable Rechlin, P Jackson DO Unavailable Unavailable Rechlin, P Jackson DO Unavailable Unavailable Rechlin, P Jackson DO Unavailable Unavailable Rechlin, P Jackson DO Unavailable Unavailable Rechlin, P Jackson DO Unavailable Unavailable Rechlin, P Jackson DO Unavailable Unavailable Rechlin, P Jackson DO Unavailable Unavailable Rechlin, P Jackson DO Unavailable Unavailable Rechlin, P Jackson DO Unavailable Unavailable Rechlin, P Jackson DO Unavailable Unavailable Rechlin, P Jackson DO Unavailable Unavailable Rechlin, P Jackson DO Unavailable Unavailable Rechlin, P Jackson DO Unavailable Unavailable Rechlin, P Jackson DO Unavailable Unavailable Rechlin, P Jackson DO Unavailable Unavailable Rechlin, P Jackson DO Unavailable Unavailable Rechlin, P Jackson DO Unavailable Unavailable Rechlin, P Jackson DO Unavailable Unavailable Rechlin, P Jackson DO Unavailable Unavailable Rechlin, P Jackson DO Unavailable Unavailable Rechlin, P Jackson DO Unavailable Unavailable DRAZEK, I TONY PA Unavailable Unavailable DRAZEK, I TONY PA Unavailable Unavailable DRAZEK, I TONY PA Unavailable Unavailable DRAZEK, I TONY PA Unavailable Unavailable DRAZEK, I TONY PA Unavailable Unavailable DRAZEK, I TONY PA Unavailable Unavailable DRAZEK, I TONY PA Unavailable Unavailable DRAZEK, I TONY PA Unavailable Unavailable DRAZEK, I TONY PA Unavailable Unavailable DRAZEK, I TONY PA Unavailable Unavailable DRAZEK, I TONY PA Unavailable Unavailable DRAZEK, I TONY PA Unavailable Unavailable DRAZEK, I TONY PA Unavailable Unavailable DRAZEK, I TONY PA Unavailable Unavailable DRAZEK, I TONY PA Unavailable Unavailable DRAZEK, I TONY PA Unavailable Unavailable DRAZEK, I TONY PA Unavailable Unavailable DRAZEK, I TONY PA Unavailable Unavailable DRAZEK, I TONY PA Unavailable Unavailable DRAZEK, I TONY PA Unavailable Unavailable DRAZEK, I TONY PA Unavailable Unavailable DRAZEK, I TONY PA Unavailable Unavailable DRAZEK, I TONY PA Unavailable Unavailable DRAZEK, I TONY PA Unavailable Unavailable DRAZEK, I TONY PA Unavailable Unavailable DRAZEK, I TONY PA Unavailable Unavailable DRAZEK, I TONY PA Unavailable Unavailable DRAZEK, I TONY PA Unavailable Unavailable DRAZEK, I TONY PA Unavailable Unavailable DRAZEK, I TONY PA Unavailable Unavailable Shane Le MD Unavailable Unavailable Shane Le MD Unavailable Unavailable Shane Le MD Unavailable Unavailable Shane Le MD Unavailable Unavailable Shane Le MD Unavailable Unavailable Shane Le MD Unavailable Unavailable Shane Le MD Unavailable Unavailable Shane Le MD Unavailable Unavailable Shane Le MD Unavailable Unavailable Shane Le MD Unavailable Unavailable Shane Le MD Unavailable Unavailable Shane Le MD Unavailable Unavailable Vaneenenaam, Shane Watson MD Unavailable Unavailable Vaneenenaam, Shane Watson MD Unavailable Unavailable Vaneenenaam, Shane Watson MD Unavailable Unavailable Vaneenenaam, Shane Watson MD Unavailable Unavailable Vaneenenaam, Shane Watson MD Unavailable Unavailable Vaneenenaam, Shane Watson MD Unavailable Unavailable Vaneenenaam, Shane Watson MD Unavailable Unavailable Vaneenenaam, Shane Watson MD Unavailable Unavailable Vaneenenaam, Shane Watson MD Unavailable Unavailable Vaneenenaam, Shane Watson MD Unavailable Unavailable Vaneenenaam, Shane Watson MD Unavailable Unavailable Vaneenenaam, Shane Watson MD Unavailable Unavailable Vaneenenaam, Shane Watson MD Unavailable Unavailable Vaneenenaam, Shane Watson MD Unavailable Unavailable Vaneenenaam, Shane Watson MD Unavailable Unavailable Vaneenenaam, Shane Watson MD Unavailable Unavailable Vaneenenaam, Shane Watson MD Unavailable Unavailable Vaneenenaam, Shane Watson MD Unavailable Unavailable Vaneenenaam, Shane Watson MD Unavailable Unavailable Vancatalina, Shane Watson MD Unavailable Unavailable Vaneenmargauxam, Shane Watson MD Unavailable Unavailable Vaneenmargauxam, Shane Watson MD Unavailable Unavailable Vaneenenaam, Shane Watson MD Unavailable Unavailable Vaneenenaam, Shane Watson MD Unavailable Unavailable Vaneenenaam, Shane Watson MD Unavailable Unavailable Vaneenmargauxam, Shane Watson MD Unavailable Unavailable Vaneenmargauxam, Shane Watson MD Unavailable Unavailable Vaneenmargauxam, Shane Watson MD Unavailable Unavailable Vaneenenaam, Shane Watson MD Unavailable Unavailable Vaneenenaam, Shane Watson MD Unavailable Unavailable Vaneenenaam, Shane Watson MD Unavailable Unavailable Vaneenmargauxam, Shane Watson MD Unavailable Unavailable Vaneenenaam, Shane Watson MD Unavailable Unavailable Vaneenenaam, Shane Watson MD Unavailable Unavailable VANVALKENIsidra CANCHOLA MD Unavailable Unavailable VANVALKENIsidra CANCHOLA MD Unavailable Unavailable VANVALKENIsidra CANCHOLA MD Unavailable Unavailable VANVALIsidra CHOUDHARY MD Unavailable Unavailable VANVALIsidra CHOUDHARY MD Unavailable Unavailable VANVALIsidra CHOUDHARY MD Unavailable Unavailable VANVALKENIsidra CANCHOLA MD Unavailable Unavailable VANVALKENIsidra CANCHOLA MD Unavailable Unavailable VANVALKENIsidra CANCHOLA MD Unavailable Unavailable VANVALIsidra CHOUDHARY MD Unavailable Unavailable VANVALIsidra CHOUDHARY MD Unavailable Unavailable VANVALIsidra CHOUDHARY MD Unavailable Unavailable VANVALKENIsidra CANCHOLA MD Unavailable Unavailable VANVALKENIsidra CANCHOLA MD Unavailable Unavailable VANVALKENIsidra CANCHOLA MD Unavailable Unavailable VANVALKENIsidra CANCHOLA MD Unavailable Unavailable VANVALKENBURG, M RACHEL LAGOS Unavailable Unavailable VANVALKENBURG, M RACHEL LAGOS Unavailable Unavailable VANVALKENBURG, M RACHEL LAGOS Unavailable Unavailable VANVALKENBURG, M RACHEL LAGOS Unavailable Unavailable VANVALKENBURG, M RACHEL LAGOS Unavailable Unavailable VANVALKENBURG, Isidra RAMOS MD Unavailable Unavailable VANVALKENBURG, Isidra RAMOS MD Unavailable Unavailable VANVALKENBURG, Isidra RAMOS MD Unavailable Unavailable VANVALKENBURG, M RACHEL LAGOS Unavailable Unavailable VANVALKENBURG, M RACHEL LAGOS Unavailable Unavailable VANVALKENBURG, M RACHEL LAGOS Unavailable Unavailable VANVALKENBURG, M RACHEL LAGOS Unavailable Unavailable VANVALKENBURG, M RACHEL LAGOS Unavailable Unavailable VANVALKENBURG, M RACHEL LAGOS Unavailable Unavailable VANVALKENBURG, M RACHEL LAGOS Unavailable Unavailable VANVALKENBURG, M RACHEL LAGOS Unavailable Unavailable VANVALKENBURG, M RACHEL LAGOS Unavailable Unavailable VANVALKENBURG, M RACHEL LAGOS Unavailable Unavailable VANVALKENBURG, M RACHEL LAGOS Unavailable Unavailable VANVALKENBURG, Isidra RAMOS MD Unavailable Unavailable VANVALKENBURG, M RACHEL LAGOS Unavailable Unavailable VANVALKENBURG, Isidra RAMOS MD Unavailable Unavailable VANVALKENBURG, M RACHEL LAGOS Unavailable Unavailable VANVALKENBURG, Isidra RAMOS MD Unavailable Unavailable VANVALKENBURG, Isidra RAMOS MD Unavailable Unavailable VANVALKENBURG, Isidra RAMOS MD Unavailable Unavailable VANVALKENBURG, M RACHEL LAGOS Unavailable Unavailable VANVALKENBURG, Isidra RAMOS MD Unavailable Unavailable VANVALKENBURG, M RACHEL LAGOS Unavailable Unavailable VANVALKENBURG, Isidra RAMOS MD Unavailable Unavailable VANVALKENBURG, Isidra RAMOS MD Unavailable Unavailable VANVALKENBURG, Isidra RAMOS MD Unavailable Unavailable VANVALKENBURG, Isidra RAMOS MD Unavailable Unavailable VANVALKENBURG, Isidar RAMOS MD Unavailable Unavailable VANVALKENBURG, Isidra RAMOS MD Unavailable Unavailable VANVALKENBURG, Isidra RAMOS MD Unavailable Unavailable VANVALKENBURG, Isidra RAMOS MD Unavailable Unavailable VANVALKENBURG, Isidra RAMOS MD Unavailable Unavailable VANVALKENBURG, Isidra RAMOS MD Unavailable Unavailable VANVALKENBURG, Isidra RAMOS MD Unavailable Unavailable VANVALKENBURG, Isidra RAMOS MD Unavailable Unavailable VANVALKENBURG, Isidra RAMOS MD Unavailable Unavailable VANVALKENBURG, Isidra RAMOS MD Unavailable Unavailable VANVALKENBURG, Isidra RAMOS MD Unavailable Unavailable VANVALKENBURG, Isidra RAMOS MD Unavailable Unavailable VANVALKENBURG, Isidra RAMOS MD Unavailable Unavailable VANVALKENBURG, Isidra RAMOS MD Unavailable Unavailable VANVALKENBURG, Isidra RAMOS MD Unavailable Unavailable VANVALKENBURG, Isidra RAMOS MD Unavailable Unavailable VANVALKENBURG, Isidra RAMOS MD Unavailable Unavailable VANVALKENBURG, M RACHEL MD Unavailable Unavailable Isidra BARAHONA MD Unavailable Unavailable Isidra BARAHONA MD Unavailable Unavailable Isidra BARAHONA MD Unavailable Unavailable Isidra BARAHONA MD Unavailable Unavailable Re-disclosure Warning The records that you are about to access may contain information from federally-assisted alcohol or drug abuse programs. If such information is present, then the following federally mandated warning applies: This information has been disclosed to you from records protected by federal confidentiality rules (42 CFR part 2). The federal rules prohibit you from making any further disclosure of this information unless further disclosure is expressly permitted by the written consent of the person to whom it pertains or as otherwise permitted by 42 CFR part 2. A general authorization for the release of medical or other information is NOT sufficient for this purpose. The Federal rules restrict any use of the information to criminally investigate or prosecute any alcohol or drug abuse patient.The records that you are about to access may contain highly sensitive health information, the redisclosure of which is protected by Article 27-F of the [facility] Public Health law. If you continue you may have access to information: Regarding HIV / AIDS; Provided by facilities licensed or operated by the [facility] Office of Mental Health; or Provided by the [facility] Office for People With Developmental Disabilities. If such information is present, then the following [facility] mandated warning applies: This information has been disclosed to you from confidential records which are protected by state law. State law prohibits you from making any further disclosure of this information without the specific written consent of the person to whom it pertains, or as otherwise permitted by law. Any unauthorized further disclosure in violation of state law may result in a fine or long term sentence or both. A general authorization for the release of medical or other information is NOT sufficient authorization for further disc losure. Allergies and Adverse Reactions Type Description Substance Reaction Status Data Source(s ) Propensity to adverse reactions NO KNOWN ALLERGIES NO KNOWN ALLERGIES [facility] Family History Family Member Name Family Member Gender Family Member Status Date o f Status Description Data Source(s) Unknown Unknown Problem [facility] ([facility]) Unknown Male Problem [facility] ([facility]) () Unknown Female Problem [facility] ([facility]) Unknown Female Problem [facility] ([facility]) Unknown Female Encounters Encounter Providers Location Date Indications Data Source(s ) Outpatient Attender: RACHEL BARAHONA MDReferrer: Silas Padilla MD 02/22/2021 12:00:00 AM Health system Office Visit Attender: Shar BRISENO Physical Therapy 10:00:00 AM EDT [facility] ([facility]) Outpatient Attender: MARCELLUS Fisher/Maribel/John/Re indl 01/02/2021 02:45:00 PM EDT [facility] ([facility]) OFFICE OUTPATIENT VISIT 15 MINUTES Attender: Shar BRISENO Physical Therapy 12/02/2020 10:45:00 AM EDT [facility] ([facility] Outpatient Attender: Matt Bal MDReferrer: FRANCIE Lynn 11/29/2020 11:57:36 AM EDT [facility] Recurring Patient Referrer: FRANCIE KLINE MD 11/28/2020 03:3 8:15 PM EDT [facility] Recurring Patient Referrer: FRANCIE KLINE MD 11/28/2020 03:3 8:04 PM EDT [facility] Recurring Patient Referrer: FRANCIE KLINE MD 11/11/2020 02:0 9:08 PM EDT [facility] Recurring Patient Referrer: FRANCIE KLINE MD 11/11/2020 02:0 8:17 PM EDT [facility] Recurring Patient Referrer: FRANCIE KLINE MD 11/03/2020 03:4 7:41 PM EDT [facility] Outpatient Attender: GREGOR POLLOCK MD Main Office 09/05/2020 12:00:00 PM EDT [facility] ([facility]) Outpatient Attender: Jackson Cleaning/Maribel/John/Luis ndl 09/01/2020 11:00:00 AM EDT [facility] ([facility]) OFFICE OUTPATIENT VISIT 15 MINUTES Attender: Shane hylton MD Physical Therapy 08/15/2020 01:15:00 PM EDT [facility] ([facility]) Outpatient Attender: GREGOR POLLOCK MD Main Office 06/03/2020 11:15:00 AM EST [facility] ([facility]) Outpatient Attender: GREGOR POLLOCK MD Main Office 05/31/2020 08:00:00 AM EST [facility] ([facility]) Outpatient Attender: GREGOR POLLOCK MD Main Office 05/17/2020 07:30:00 AM EST [facility] ([facility]) OFFICE OUTPATIENT VISIT 15 MINUTES Attender: Shane hylton MD Physical Therapy 05/04/2020 08:00:00 AM EST [facility] ([facility]) Outpatient Attender: GREGOR POLLOCK MD Main Office 05/02/2020 11:15:00 AM EST [facility] ([facility]) Outpatient Attender: Sials Padilla MD Physical Therapy 03/21/2020 1 2:45:00 PM EST [facility] ([facility]) OFFICE OUTPATIENT VISIT 15 MINUTES Attender: Shane hylton MD Physical Therapy 03/14/2020 09:15:00 AM EST [facility] ([facility]) Outpatient Attender: Jackson Cleaning/Maribel/John/Luis ndl 03/01/2020 10:00:00 AM EST [facility] ([facility]) Outpatient Attender: Jackson Cleaning/Maribel/John/Luis ndl 01/13/2020 08:30:00 AM EDT [facility] ([facility]) OFFICE OUTPATIENT VISIT 15 MINUTES Attender: TONY Mcbride ical Therapy 12/29/2019 10:15:00 AM EDT [facility] ([facility]) Immunizations Vaccine Date Status Description Data Source(s) COVID-19 VACCINE Moderna 02/10/2021 12:00:00 AM EDT completed [facility] Vaccine Series Complete: YESThis Data wa s Submitted to [facility] [employer]. COVID-19 VACCINE Moderna 06/19/2020 12:00:00 AM EST completed [facility] Vaccine Series Complete: YESThis Data wa s Submitted to [facility] [employer]. COVID-19 VACCINE Moderna 05/23/2020 12:00:00 AM EST completed [facility] Vaccine Series Complete: NOThis Data was Submitted to [facility] [employer]. Medications Medication Brand Name Start Date Product Form Dose Route Admi nistrative Instructions Pharmacy Instructions Status Indications Reaction Description Data Source(s) SUPREP BOWEL PREP KIT 17.5-3.13-1.6 gram SODIUM, POTASSIUM,M AG SULFATES 02/10/2021 12:00:00 AM EDT recon soln 354 TAKE DIRECTED PER DOCTORS BOWEL PREP TAKE DIRECTED PER DOCTORS BOWEL PREP SOLD: 02/13/2021 [facility] 240 mcg/0.7 mL 12/30/2020 12:00:00 AM EDT syringe 0 INJECT DIRECTED INJECT DIRECTED SOLD: 12/30/2020 [facility] BLOOD SUGAR DIAGNOSTIC 12/20/2020 12:00:00 AM EDT strip 100 USE DAILY DIRECTED USE DAILY DIRECTED SOLD: 12/22/2020 [facility] 0.3 % 10/27/2020 12:00:00 AM EDT drops 5 INSTILL 1 DROP INTO BOTH EYES FOUR TIMES DAILY DIRECTED INSTILL 1 DROP INTO BOTH EYES FOUR TIMES DAILY DIRECTED SOLD: 10/28/2020 [facility] atorvastatin 20 MG Oral Tablet Atorvastatin Calcium 09/13/2020 1 2:00:00 AM EDT active [facility] ( [facility]) Esomeprazole 40 MG Delayed Release Oral Capsule Esomeprazole Magnesium 09/13/2020 12:00:00 AM EDT active [facility] ([facility]) Flecainide Acetate 50 MG Oral Tablet Flecainide Acetate 12:00:00 AM EDT ORAL active [facility] ([facility] apixaban 5 MG Oral Tablet [Eliquis] Eliquis 09/05/2020 12:00:00 AM EDT active [facility] ([facility]) 8 HR Acetaminophen 650 MG Extended Release Oral Tablet [Tyle nol] Tylenol 8 Hour 09/04/2020 12:00:00 AM EDT ORAL active [facility] ([facility]) 60 ACTUAT Albuterol 0.09 MG/ACTUAT Metered Dose Inhaler Albu terol Sulfate HFA 09/04/2020 12:00:00 AM EDT RESPIRATORY active [facility] ([facility]) Esomeprazole 40 MG Delayed Release Oral Capsule [Nexium] Nex ium 09/04/2020 12:00:00 AM EDT ORAL completed [facility] ([facility]) Flecainide Acetate 50 MG Oral Tablet Flecainide Acetate 12:00:00 AM EDT ORAL completed [facility] ([facility]) Tamsulosin hydrochloride 0.4 MG Oral Capsule Tamsulosin HCL 09/04/2020 12:00:00 AM EDT ORAL active [facility] ([facility]) gabapentin 300 MG Oral Capsule Gabapentin 09/04/2020 12:00:00 AM EDT ORAL active [facility] ([facility]) Diphenhydramine Hydrochloride 25 MG Oral Tablet [Benadryl] B enadryl Allergy 09/04/2020 12:00:00 AM EDT ORAL active [facility] ([facility]) Vitamin B 12 1 MG Extended Release Oral Tablet Vitamin B12 09/04/2020 12:00:00 AM EDT ORAL active [facility] ([facility]) Cholecalciferol 2000 UNT Oral Tablet Vitamin D 09/04/2020 12:00:00 A M EDT ORAL [facility] Finasteride 5 MG Oral Tablet Finasteride 09/04/2020 12:00:00 AM EDT ORAL active [facility] ([facility]) Flecainide Acetate 100 MG Oral Tablet Flecainide Acetate 12:00:00 AM EDT completed [facility] ([facility]) apixaban 2.5 MG Oral Tablet [Eliquis] Eliquis 08/15/2020 12:00:00 AM EDT ORAL completed [facility] Flecainide Acetate 50 MG Oral Tablet Flecainide Acetate 06/2020 12:00:00 AM EDT ORAL completed [facility] ([facility]) Covid-19 vaccine, Unspecified 06/20/2020 12:00:00 AM EST completed [facility] Medication administered onsite LANCETS 06/04/2020 12:00:00 AM EST misc 100 USE O NCE DAILY DIRECTED USE ONCE DAILY DIRECTED SOLD: 06/04/2020 [facility] 25 mg 06/03/2020 12:00:00 AM EST tablet 15 TAKE ONE-HALF TABLET BY MOUTH EVERY DAY TAKE ONE-HALF TABLET BY MOUTH EVERY DAY SOLD: 06/03/2020 [facility] Chlorthalidone 25 MG Oral Tablet Chlorthalidone 06/03/2020 12:00:00 A M EST ORAL active [facility] ([facility] BLOOD SUGAR DIAGNOSTIC 06/02/2020 12:00:00 AM EST strip 50 USE ONCE DAILY DIRECTED USE ONCE DAILY DIRECTED SOLD: 06/03/2020 [facility] BLOOD-GLUCOSE METER 06/02/2020 12:00:00 AM EST misc 1 USE ONCE DAILY DIRECTED USE ONCE DAILY DIRECTED SOLD: 06/03/2020 [facility] LANCETS 06/02/2020 12:00:00 AM EST misc 100 USE O NCE DAILY DIRECTED USE ONCE DAILY DIRECTED SOLD: 06/03/2020 [facility] Flecainide Acetate 50 MG Oral Tablet Flecainide Acetate 12:00:00 AM EST ORAL completed [facility] ([facility]) Chlorthalidone 25 MG Oral Tablet Chlorthalidone 05/30/2020 12:00:00 A M EST ORAL completed [facility] ([facility]) Allopurinol 300 MG Oral Tablet Allopurinol 05/30/2020 12:00:00 AM EST active [facility] ([facility]) atorvastatin 20 MG Oral Tablet [Lipitor] Lipitor 05/30/2020 12:00: 00 AM EST ORAL completed [facility] ([facility]) Covid-19 vaccine, Unspecified 05/23/2020 12:00:00 AM EST completed [facility] ([facility]) Medication administered onsite 5 mg 05/17/2020 12:00:00 AM EST tablet 60 TAKE ONE TABLET BY MOUTH TWICE A DAY, HOLD FOR SITTING RESTING SYSTOLIC BLOOD PRESSURE LESS THAN 135MMHG TAKE ONE TABLET BY MOUTH TWICE A DAY, HOLD FOR SITTING RESTING SYSTOLIC BLOOD PRESSURE LESS THAN 135MMHG SOLD: 05/18/2020 [facility] [employer] [facility] Amlodipine 5 MG Oral Tablet Amlodipine Besylate 05/17/2020 12:00:00 A M EST ORAL active [facility] ([facility] apixaban 5 MG Oral Tablet [Eliquis] Eliquis 05/17/2020 12:00:[address] ORAL active [facility] ([facility] 5 mg 05/17/2020 12:00:00 AM EST tablet 60 TAKE ONE TABLET BY MOUTH TWICE A DAY, HOLD FOR SITTING RESTING SYSTOLIC BLOOD PRESSURE LESS THAN 135MMHG TAKE ONE TABLET BY MOUTH TWICE A DAY, HOLD FOR SITTING RESTING SYSTOLIC BLOOD PRESSURE LESS THAN 135MMHG SOLD: 06/17/2020 [facility] apixaban 2.5 MG Oral Tablet [Eliquis] Eliquis 05/17/2020 12:00:00 AM EST ORAL completed [facility] ([facility] Spironolactone 25 MG Oral Tablet Spironolactone 05/17/2020 12:00:00 A M EST ORAL active [facility] ([facility] Flecainide Acetate 50 MG Oral Tablet Flecainide Acetate 04/2020 12:00:00 AM EST ORAL active [facility] ([facility]) Flecainide Acetate 50 MG Oral Tablet Flecainide Acetate 12:00:00 AM EST ORAL completed [facility] ([facility]) 25 mg 05/03/2020 12:00:00 AM EST tablet 15 TAKE ONE-HALF TABLET BY MOUTH EVERY DAY TAKE ONE-HALF TABLET BY MOUTH EVERY DAY SOLD: 05/03/2020 [facility] candesartan cilexetil 32 MG Oral Tablet [Atacand] Atacand 05/02/2020 12:00:00 AM EST ORAL completed [facility] ([facility]) Chlorthalidone 25 MG Oral Tablet Chlorthalidone 05/02/2020 12:00:00 A M EST ORAL completed [facility] ([facility] Spironolactone 25 MG Oral Tablet Spironolactone 05/02/2020 12:00:00 A M EST ORAL completed [facility] ([facility] Lisinopril 40 MG Oral Tablet Lisinopril 05/01/2020 12:00:00 AM EST ORAL completed [facility] ([facility]) 15 mg 03/15/2020 12:00:00 AM EST tablet 30 TAKE ONE TABLET BY MOUTH EVERY DAY WITH FOOD OR MILK TAKE ONE TABLET BY MOUTH EVERY DAY WITH FOOD OR MILK S OLD: 04/13/2020 [facility] 15 mg 03/15/2020 12:00:00 AM EST tablet 30 TAKE ONE TABLET BY MOUTH EVERY DAY WITH FOOD OR MILK TAKE ONE TABLET BY MOUTH EVERY DAY WITH FOOD OR MILK S OLD: 03/15/2020 [facility] meloxicam 15 MG Oral Tablet Meloxicam 03/14/2020 12:00:00 AM EST ORAL completed [facility] ([facility]) 5-325 mg 02/09/2020 12:00:00 AM EDT tablet 20 TAKE 1-2 TABLETS BY MOUTH EVERY 4-6 HOURS NEEDED FOR PAIN MAXIMUM DAILY DOSE = 4 TAKE 1-2 TABLETS BY MOUTH EVERY 4-6 HOURS NEEDED FOR PAIN MAXIMUM DAILY DOSE = 4 SOLD: 02/10/2020 [facility] Insurance Providers Payer name Policy type / Coverage type Policy ID Covered green party ID Covered green party's relationship to hand Policy Hand Plan Information [employer] [id number] SP [id number] [employer] [id number] SP [id number] [employer] [place] Med[employer] Part B [id number] 2...[id number] .[id number] Self [id number] [employer] [place] Medigap [place] [id number] Self [employer] [place] Medigap Part B [id number] 2..1.670457.3.227.99 .572.1674.0 Self [id number] [employer] [place] Medigap Part B [id number] 2.0.1.678269.3.227.99 .572.1674.0 Self [id number] [employer] [place] Medigap Part B [id number] 2.0.1.409610.3.227.99 .572.1674.0 Self [id number] [employer] [place] Medigap Part B [id number] 2..1.806588.3.227.99 .572.1674.0 Self [id number] BC BS of [facility] Medigap Part B [id number] Self BC BS of [facility] Medigap Part B [id number] 2.16.840.1.198101.3.227.99.572.1674.0 Self SA [id number] BC/BS Of [place] Medigap Part B [id number] 2.16.840.1.159294.3.227.99.177.06445.0 Self S [id number] BC BS of [facility] Part B [id number] 2.16.840.1.861597.3.227.99.572.1674.0 Self SA [id number] BS Of [place] Medig[place] Part B [id number] 2.16.840.1.282120.3.227.99.177.84469.0 Self S [id number] [employer] Medigap Part B [id number] 2.16.840.1.532538.3.227.99.8646.43610.0 Self [id number] [employer] Medigap Part B [id number] 2.16.840.1.575622.3.227.99.8646.18167.0 Self [id number] BC BS of [facility] Part B [id number] 2.16.840.1.357116.3.227.99.572.1674.0 Self SA [id number] BC/BS Of [facility] Part B [id number] Self BC BS of [facility] B [id number] 2.16.840.1.937360.3.227.99.572.1674.0 Self SA [id number] [facility] [id number] 2.16.840.1.311101.3.227.99.572.1674.0 Self SA [id number] BS [place] Medigap Part B [id number] 2.16.840.1.843631.3.227.99.991.20491.0 Self S [id number] Ghi/Emblem HLTH (pr) Medigap Part B [id number] 2.16.840.1.831186.3.227.99.991.98344.0 Self [id number] Ghi/Emblem HLTH (pr) Medigap Part B [id number] 2.16.840.1.502239.3.227.99.991.45188.0 Self [id number] Ghi/Emblem HLTH (pr) Medigap Part B [id number] 2.16.840.1.915371.3.227.99.991.22637.0 Self [id number] BS [place] Medigap Part B [id number] 2.16.840.1.625744.3.227.99.991.94492.0 Self S [id number] [facility] [id number] 2.16.840.1.470128.3.227.99.991.90275.0 Self [id number] BS [place] Medigap Part B [id number] 2.16.840.1.988461.3.227.99.991.05354.0 Self S [id number] [facility] [id number] 2.16.840.1.136391.3.227.99.991.54432.0 Self [id number] BS [place] Medigap Part B [id number] 2.16.840.1.364352.3.227.99.991.55907.0 Self S [id number] Ghi/Emblem HLTH (pr) Medigap Part B [id number] 2.16.840.1.581340.3.227.99.991.84776.0 Self [id number] Ghi/Emblem HLTH (pr) Medigap Part B [id number] Self BS [place] Medigap Part B [id number] Self BS [place] Medigap Part B [id number] 2.16.840.1.708584.3.227.99.991.69440.0 Self S [id number] BS [facility] Part B [id number] 2.16.840.1.632754.3.227.99.991.01109.0 Self S [id number] BC/BS Of [facility] Part B [id number] 2.16.840.1.039970.3.227.99.572.1674.0 Self SA [id number] BC/BS Of [facility] Part B [id number] Self BC/BS Of [facility] Part B [id number] 2.16.840.1.906141.3.227.99.572.1674.0 Self SA [id number] BC/BS Of [facility] Part B [id number] 2.16840.1.842714.3.227.99.572.1674.0 Self SA [id number] BC/BS Of [facility] Part B [id number] 2.16.840.1.248170.3.227.99.572.1674.0 Self SA [id number] BC/BS Of [facility] Part B [id number] 2.16.840.1.038705.3.227.99.572.1674.0 Self SA [id number] A MEDICARE A [id number] Self [id number] A Medicare - [place] Medicare Primary [id number] 2.16.840.1.541041.3.227.99.177.96177.0 Self 1 [id number] [place] Primary [id number] 2.16.840.1.426203.3.227.99.8646.91911.0 Self [id number] Medicare (Part B) Medicare Primary [id number] 2.16.840.1.413426.3.227.99.572.1674.0 Self [id number] [facility] Part B [id number] 2.16.840.1.092025.3.227.99.572.1674 .0 Self [id number] Medicare (Part B) Medicare Primary [id number] 2.16.840.1.019451.3.227.99.572.1674.0 Self [id number] MEDICARE [id number] SP [id number] A Medicare [facility] Medicare Primary [id number] 2.16.840.1.612748.3.227.99.8646.71619.0 Self [id number] Medicare (Part B) Medicare Primary [id number] 2.16.840.1.044662.3.227.99.572.1674.0 Self [id number] Medicare (Part B) Medicare Primary [id number] 2.16.840.1.822707.3.227.99.572.1674.0 Self [id number] Medicare - [place] Medicare Primary [id number] 2.16.840.1.773294.3.227.99.177.73319.0 Self [id number] Medicare (Part B) Medicare Primary [id number] 2.16.840.1.256504.3.227.99.572.1674.0 Self [id number] Medicare (Part B) Medicare Primary [id number] Self [facility] Part B [id number] Self Medicare [place] Primary 2.16.840.1.850724.3.227. 99.6619.8954.0 Self Medicare - [place] Medicare Primary [id number] Self Medicare Medicare Primary [id number] Self MEDICARE [id number] SP [id number] [facility] [id number] SP [id number] [employer] [id number] SP [id number] [employer] [id number] SP [id number] [employer] [id number] 2.16.840.1.893769.3.227.99.177.43437.0 Self [id number] [employer] [id number] 2.16.840.1.338229.3.227.99.177.26646.0 Self [id number] [employer] [id number] Self [employer] Medigap Part B [id number] Self Medicare [place] Medicare Primary [id number] 2.16.840.1.958066.3.227.99.991.63499.0 Self [id number] [employer] (pr) Medigap Part B [id number] 2.16.840.1.956183.3.227.99.991.4 2650.0 Self [id number] [employer] (pr) Medigap Part B [id number] 2.16.840.1.089172.3.227.99.991.4 2650.0 Self [id number] Medicare [place] Medicare Primary [id number] 2.16.840.1.941175.3.227.99.991.46245.0 Self [id number] [employer] (pr) Medigap Part B [id number] 2.16.840.1.536136.3.227.99.991.4 2650.0 Self [id number] [employer] (pr) Medigap Part B [id number] 2.16.840.1.344644.3.227.99.991.4 2650.0 Self [id number] Medicare [place] Medicare Primary [id number] Self [employer] (pr) Medigap Part B [id number] Self Medicare [place] Medicare Primary [id number] 2.16.840.1.350246.3.227.99.991.25156.0 Self [id number] [employer] (pr) Medigap Part B [id number] 2.16.840.1.157281.3.227.99.991.4 2650.0 Self [id number] [employer] (pr) Medigap Part B [id number] 2.16.840.1.402241.3.227.99.991.4 2650.0 Self [id number] Medicare [place] Medicare Primary [id number] 2.16.840.1.376032.3.227.99.991.16564.0 Self 1 [id number] Medicare [place] Medicare Primary [id number] 2.16.840.1.418888.3.227.99.991.86750.0 Self 1 [id number] UMR U [id number] Self [id number] MEDICARE A [id number] Self [id number] A UMR U [id number] Self [id number] Umr Medigap Part B [id number] 2.16840.1.160630.3.227.99.991.4265 0.0 Self [id number] Umr Medigap Part B [id number] 2.160.1.220254.3.227.99.991.4265 0.0 Self [id number] Umr Medigap Part B [id number] 2.0.1.657822.3.227.99.991.4265 0.0 Self [id number] Umr Medigap Part B [id number] 2.0.1.536412.3.227.99.991.4265 0.0 Self [id number] Umr Medigap Part B [id number] 2.0.1.375223.3.227.99.991.4265 0.0 Self [id number] Medicare [place] Medicare Primary [id number] 2.0.1.975930.3.227.99.991.66008.0 Self [id number] Medicare C [id number] SELF [id number] [id number] UMR F [id number] SELF [id number] DME Jurisdiction A NHIC C [id number] SELF [id number] [employer]CS Ppo Medigap Part B [id number] 2.0.1.276991.3.227. 99.572.1674.0 Self [id number] Ghi Medigap Part B [id number] 2.160.1.163015.3.227.99.572.1674 .0 Self [id number] Medicare Dme Supplies Medigap Part B [id number] 2.0.1.210430.3.227.99.991.26110.0 Self [id number] [employer] [id number] 2.16.840.1.799248.3.227.99.8646.08287.0 Self [id number] [employer] [id number] 2.16.840.1.030755.3.227.99.572.1674.0 S elf [id number] r Medigap Part B [id number] 2.16840.1.832342.3.227.99.572.1674 .0 Self [id number] [facility] Ppo Medigap Part B [id number] Self [id number] Medicare [facility] Medigap Part B [id number] Self 1 [id number] [facility] Medigap Part B [id number] 21.0 Self [id number] r Commercial [id number] Self [id number] [facility] B [id number] 1952.0 Self [id number] [facility] Ppo Medigap Part B [id number] Self [id number] r Medigap Part B [id number] Self [id number] r Commercial [id number] Self [id number] [facility] Ppo Medigap Part B [id number] Self [id number] U[facility] Medigap Part B [id number] Self [id number] UMR O [id number] S [id number] MEDICARE C [id number] S [id number] A Medicare Dme Supplies Medigap Part B [id number] Self 1 [id number] [employer] PPO O [id number] S [id number] Medicare Dme Supplies Medigap Part B [id number] Self 1 [id number] [facility] Ppo Medigap Part B [id number] Self [id number] [employer] PPO O [id number] S [id number] [facility] Medigap Part B [id number] 21.0 Self Medicare [place] Medicare Primary [id number] Self [facility] Ppo Medigap Part B [id number] Self Ghi Emblem Medigap Part B [id number] Self Guardian Commercial [id number] Self Medicare Part B [facility] Other 0 [id number] S elf 0 Ghi Medigap Part B [id number] Self Medicare Part B [facility] Other 0 [id number] S elf 0 [facility] Med[employer]ap Part B [id number] 4.0 Self GHI/EMBLEM S [id number] S [id number] Umr Medigap Part B [id number] Self [id number] Medicare Dme Supplies [facility] Part B [id number] Self 1 [id number] Problems, Conditions, and Diagnoses Code Display Name Description Problem Type Effective Dates Data Source(s) I50.32 Chronic diastolic heart failure Chronic diastolic hear t failure Problem 05/17/2020 12:00:00 AM EST [facility] ([facility]) I11.0 Benign hypertensive heart disease with c ongestive cardiac failure Benign hypertensive heart disease with congestive cardiac failure Problem 05/17/2020 12:00:00 AM EST [facility] ([facility]) I10 Essential hypertension Essential hypertension Problem 05/02/2020 12:00:00 AM EST [facility] ([facility]) I42.2 Familial cardiomyopathy Familial cardiomyopathy Proble m 05/02/2020 12:00:00 AM EST [facility] ([facility]) 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 Pos t-inflammatory pulmonary fibrosis Problem 03/01/2020 12:00:00 AM EST [facility] ([facility]) Surgeries/Procedures Procedure Description Date Indications Data Source(s) INJECTION 1 TENDON SHEATH/LIGAMENT APONEUROSIS 021 12:00:00 AM EDT [facility] ([facility]) OFFICE OUTPATIENT VISIT 25 MINUTES 01/13/2021 12:00:00 AM EDT [facility] ([facility]) OFFICE OUTPATIENT VISIT 15 MINUTES 01/02/2021 12:00:00 AM EDT [facility] ([facility]) OFFICE OUTPATIENT VISIT 15 MINUTES 12/02/2020 12:00:00 AM EDT [facility] ([facility]) OFFICE OUTPATIENT VISIT 25 MINUTES 12/02/2020 12:00:00 AM EDT [facility] ([facility]) MRI Lower Extremity Any Joint 11/21/2020 12:00:00 AM E DT [facility] ([facility]) MRI Lower Extremity Any Joint 11/21/2020 12:00:00 AM E DT [facility] ([facility]) INJECTION 1 TENDON SHEATH/LIGAMENT APONEUROSIS 021 12:00:00 AM EDT [facility] ([facility]) OFFICE OUTPATIENT VISIT 25 MINUTES 11/16/2020 12:00:00 AM EDT [facility] ([facility]) ECHO TTHRC R-T 2D W/WOM-MODE COMPL SPEC&COLR DOP 11/11 12:00:00 AM EDT [facility] ([facility]) ECG ROUTINE ECG W/LEAST 12 LDS W/I&R 09/05/2020 12:00: 00 AM EDT [facility] ([facility]) OFFICE OUTPATIENT VISIT 25 MINUTES 09/05/2020 12:00:00 AM EDT [facility] ([facility]) Spirometry 09/01/2020 12:00:00 AM EDT M EDENT ([facility] ) OFFICE OUTPATIENT VISIT 25 MINUTES 09/01/2020 12:00:00 AM EDT [facility] ([facility]) OFFICE OUTPATIENT VISIT 15 MINUTES 08/15/2020 12:00:00 AM EDT [facility] ([facility]) INJECTION 1 TENDON SHEATH/LIGAMENT APONEUROSIS 021 12:00:00 AM EDT [facility] ([facility]) OFFICE OUTPATIENT VISIT 25 MINUTES 07/04/2020 12:00:00 AM EDT [facility] ([facility]) INJECTION 1 TENDON SHEATH/LIGAMENT APONEUROSIS 021 12:00:00 AM EST [facility] ([facility]) OFFICE OUTPATIENT VISIT 25 MINUTES 06/23/2020 12:00:00 AM EST [facility] ([facility]) INJECTION 1 TENDON SHEATH/LIGAMENT APONEUROSIS 021 12:00:00 AM EST [facility] ([facility]) OFFICE OUTPATIENT VISIT 25 MINUTES 06/13/2020 12:00:00 AM EST [facility] ([facility]) OFFICE OUTPATIENT VISIT 15 MINUTES 06/03/2020 12:00:00 AM EST [facility] ([facility]) INJECTION 1 TENDON SHEATH/LIGAMENT APONEUROSIS 021 12:00:00 AM EST [facility] ([facility]) RADEX ANKLE COMPLETE MINIMUM 3 VIEWS 06/01/2020 12:00: 00 AM EST [facility] ([facility]) OFFICE OUTPATIENT VISIT 25 MINUTES 06/01/2020 12:00:00 AM EST [facility] ([facility]) OFFICE OUTPATIENT VISIT 15 MINUTES 05/31/2020 12:00:00 AM EST [facility] ([facility]) XTRNL PT ACTIVATED ECG RECORD MONITOR 30 DAYS 05/20/19 21 12:00:00 AM EST [facility] ([facility]) XTRNL PT ACTIVTD ECG DWNLD 30 DAYS PHYS R&I 05/20/2020 12:00:00 AM EST [facility] ([facility]) OFFICE OUTPATIENT VISIT 25 MINUTES 05/17/2020 12:00:00 AM EST [facility] ([facility]) ECG ROUTINE ECG W/LEAST 12 LDS W/I&R 05/02/2020 12:00: 00 AM EST [facility] ([facility]) Spirometry 03/01/2020 12:00:00 AM EST M EDENT ([facility]) Maximum Breathing Capacity, Maximal Voluntary Ventilation 03/01/2020 12:00:00 AM EST [facility] ([facility]) Plethysmography Determination Lung Volumes & Per Airway Resi st 03/01/2020 12:00:00 AM EST [facility] ([facility]) DIFFUSING CAPACITY 03/01/2020 12:00:00 AM EST [facility] ([facility]) RADIOLOGIC EXAMINATION KNEE 3 VIEWS 02/09/2020 12:00:0 0 AM EDT [facility] ([facility]) THERAPEUTIC PX 1/> AREAS EACH 15 MIN EXERCISES 020 12:00:00 AM EDT [facility] ([facility]) INJECTION 1 TENDON SHEATH/LIGAMENT APONEUROSIS 12:00:00 AM EDT [facility] ([facility]) THERAPEUTIC PX 1/> AREAS EACH 15 MIN EXERCISES 020 12:00:00 AM EDT [facility] ([facility]) Results ID Date Data Source [id number] 02/17/2021 09:55:00 AM EDT [facility] Name Value Range Interpretation Code Description Data Jazmin rce(s) Supporting Document(s) SARS-CoV-2 (COVID-19) RNA [Presence] in Respiratory specimen by [facility] with probe detection Not Detected [facility] This lab was ordered by [facility] and reported by [facility]. ID Date Data Source [id number] 11/29/2020 11:57:36 AM EDT [facility] PCName: Silas RichardsDOB: 1950rovider: Isauro BalOS: 11/28/2020 Reason For VisitSOS Patient Intake: Silas Richards is here today for 2nd Opinion Right Knee. Silas had his second Covid vaccine on 06/2020. Silas Richards is here for a second opinion. C/o pain and terrible stiffness since his right knee TKA by Dr Le on 11-11-19, struggles with walking stars and general activity that he had no problem with before, no assistive devices, use Tylenol regularly and Hydrocodone PRN, random throbbing and tingling with over use, tries to walk daily but simply cant deal with the pain involved, pain scale of 4 out of 10 when rested and an 8-9 with activity, feels a cracking when flexing his knee. SOS Occupation and Work Status: Patient is retired. 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 He had a right total knee replacement on 11/11/19. Surgery was performed by Dr. Mcdowell in the [place] area. He continues to have issues with an activity-related sense of stiffness and pain. He is here for a discussion and an opinion. He says the pain comes on after he has walked about two miles. It's in the lateral aspect of his knee. It's relatively painless before he has gone two miles. He has a sense of stiffness. The pain is 4 out of 10 when he is seated and it is 8 to 9 out of 10 when he ambulates. He has no sense of instability. He can go up and down stairs. He complains of clicking and popping at times. He does not use an assistive dev ice. He has done extensive physical therapy. He does not do any other exercise, other than walking.PAST MEDICAL HISTORY:Please see intake. Thoracic aneurysm, borderline diabetes, atrial fibrillation, cardiomegaly, chronic bronchitis, diverticulitis, hyperlipidemia, sleep apnea, pulmonary fibrosis.SURGICAL HISTORY:Knee arthroscopy and subsequent knee replacement.MEDICATIONS:Medications are as listed. He is on Eliquis.PHYSICAL EXAMINATION:He is 5'8 and weighs 250 pounds, with a BMI of 38. He is alert, awake and oriented, with appropriate mood and affect. Lower extremities have no edema or varicosities. Pulses are fine. Sensory and motor are intact. Examination of the right knee: He does not have an effusion. Clinical alignment is excellent. Motion is from 0 to 120. Good patellar tracking. No ligamentous laxity. He does not have tenderness over the lateral or medial epicondyles or in the joint line. He has normal motion of his hip without pain on internal/external rotation and abduction.X-RAYS:AP, lateral and Merchant's views, done in November, were reviewed. They show no abnormality, with good alignment. BONE SCAN:The bone scan does not light up or show any evidence of loosening.BLOOD WORKAccording to the patient, his sed rate and C- reactive protein are unremarkable.IMPRESSION:He has an uncomfortable right knee replacement. It most uncomfortable after he walks two miles. He does not use an assistive device at the present time.RECOMMENDATION: Arthroscopy for his knee for, perhaps, scar tissue getting caught in the lateral aspect, that may be aggravated by activity, is a possibility being discussed in the [place] area. Doing a scope to look at that was suggested. I'm not adamantly against that. I suspect the scope will probably not result in the kind of relief this patient is expecting. 20% of patients don't get the kind of result you might normally expect and this may be one of the 20%. I don't think there is anything significant on that would be helped by surgical intervention of the knee. The bone scan does not show any significant activity in his hip and clinically his hip does not have any significant issues, so I don't think the hip is causing referred pain. I think this is probably something he's going to have to deal with. I think he has to modify his exercise program, perhaps add a stationary bike, swimming or some other modality, to please him, and not rely completely on walking. Signatures Electronically signed by : Luly Ace, ; Nov 29 2020 8:29AM EST Electronically signed by : Matt Bal M.D.; Nov 29 2020 11:57AM EST Name Value Range Interpretation Code Description Data Jazmin rce(s) Supporting Document(s) ID Date Data Source [id number] 11/22/2020 08:19:00 AM EDT [facility] ([facility] Name Value Range Interpretation Code Description Data Jazmin rce(s) Supporting Document(s) Red Blood Count 7.39 [facility] White Blood Count 16.1 [facility] Platelets 268 [facility] Hemoglobin 14.8 [facility] ([facility]) Hematocrit 47.3 [facility] ([facility]) ID Date Data Source [id number] 11/22/2020 08:19:00 AM EDT [facility] Name Value Range Interpretation Code Description Data Jazmin rce(s) Supporting Document(s) Glucose 180 [facility] Creatinine 1.1 [facility] ([facility]) Blood Urea Nitrogen 25.9 [facility] ([facility] Glomerular filtration rate/1.73 sq M.pre dicted [Volume Rate/Area] in Serum or Plasma by Creatinine-based formula (MDRD) 66 [facility] ([facility]) Sodium 134.1 [facility] Potassium 4.51 [facility] Carbon Dioxide 30.7 [facility]) Chloride 96.4 [facility] Calcium 9.4 [facility] Phosphorus 3.2 [facility] ([facility]) Albumin 4.2 [facility] ID Date Data Source [id number] 09/01/2020 10:59:00 AM EDT [facility] ([facility], ) Name Value Range Interpretation Code Description Data Jazmin rce(s) Supporting Document(s) PDFReport Laboratory test result [facility] ([facility], ) FVC-Pred 4.13 L [facility] ([facility], ) FVC-%Pred-Pre 52 L [facility] ([facility], ) FVC-Pre 2.15 L [facility] ([facility], ) FVC-LLN 3.25 L [facility] ([facility], ) Fev1-Pred 3.04 L [facility] ([facility], ) Fev1-Pre 1.62 L [facility] ([facility], ) Fev6-Pred 3.89 L [facility] ([facility], ) Fev1-%Pred-Pre 53 L [facility] ([facility], ) Fev1-LLN 2.30 L [facility] ([facility], ) Fev6-Pre 2.15 L [facility] ([facility], ) Fev6-LLN 3.04 L [facility] ([facility], ) Fev6-%Pred-Pre 55 L [facility] ([facility], ) Ceb5bow-Rni 75 % [facility] ([facility]) Gop6fsy-Tbuc 74 % [facility] ([facility]) Obb8bxj-%Pred-Pre 101 % [facility] ([facility]) Wex5gpn-Gci 100 % [facility] ([facility]) Ucv7umh-Dssr 94 % [facility] ([facility]) Aua7nrs-AFH 64 % [facility] ([facility]) FEFMax-%Pred-Pre 51 L/E/sec [facility] ([facility]) Mpm3vky-%Pred-Pre 106 % [facility] ([facility]) FEFMax-Pre 4.13 L/E/sec [facility] ([facility]) FEFMax-Pred 8.01 L/E/sec [facility] ([facility]) FEFMax-LLN 5.82 L/E/sec [facility] ([facility]) Nfs1548-Xfgl 2.34 L/E/sec [facility] ([facility]) Wfq2820-Xsf 1.22 L/E/sec [facility] ([facility]) Shi4411-%Pred-Pre 52 L/E/sec [facility] ([facility]) Tqa1203-FWA 0.83 L/E/sec [facility] ([facility]) ExpTime-Pre 5.32 sec [facility] ([facility]) Xut0fjk8-Etmx 78 % [facility] ([facility]) Axq0nob7-Cxs 75 % [facility] ([facility]) Kug9evu8-%Pred-Pre 96 % [facility] ([facility]) Hwi1vhu5-YRI 69 % [facility] ([facility]) ID Date Data Source [id number] 08/29/2020 02:42:[address] [facility] ([facility]) Name Value Range Interpretation Code Description Data Jazmin rce(s) Supporting Document(s) Urate [Mass/volume] in Serum or Plasma 4.9 mg/dL 3.5-7.2 Normal (applies to non- numeric results) [facility] ([facility]) Natriuretic peptide.B prohormone N-Terminal [Mass/volu me] in Serum or Plasma 24 pg/mL Normal (applies to non-numeric results) [facility] ([facility]) ID Date Data Source [id number] 08/29/2020 02:42:[address] [facility] ([facility]) Name Value Range Interpretation Code Description Data Jazmin rce(s) Supporting Document(s) Creatinine For GFR 0.85 mg/dL 0.70-1.30 Normal (applies to non -numeric results) [facility] ([facility]) Glucose, Fasting 137 mg/dL 70-100 Above high normal [facility] Blood Urea Nitrogen 13 mg/dL 7-18 Normal (applies to non-nume tacos results) [facility]) Potassium Serum 4.3 meq/L 3.5-5.1 Normal (applies to non-numeric results) [facility]) Glomerular Filtration Rate Laboratory test result Normal (applies to non- numeric results) [facility] ([facility]) <content>Units are mL/min/1.73 m2</content>
<content></content>
<content>Chronic Kidney Disease Staging per NKF:</content>
<content></content>
<content>Stage I & II GFR >=60 Normal to Mildly Decreased</content>
<content>Stage III GFR 30- 59 Moderately Decreased</content>
<content>Stage IV GFR 15-29 Severely Decreased</content>
<content>Stage V GFR <15 Very Little GFR Left</content>
<content>ESRD GFR <15 on AUTOMOTIVE SALES PROFESSIONAL</content>
<content></content> Sodium Level 137 meq/L 136-145 Normal (applies to non-numeric res ults) [facility] ([facility], ) Anion Gap 6 meq/L 8-16 [facility] low [facility] Chloride Level 102 meq/L 98-107 Normal (applies to non-numeric r esults) [facility] ([facility]) Carbon Dioxide Level 29 meq/L 21-32 Normal (applies to non-num toyin results) [facility] ([facility]) Calcium Level 8.6 mg/dL 8.8-10.2 Below low normal [facility] ([facility]) Ast/Sgot 16 U/L 7-37 Normal (applies to non-numeric resul ts) [facility] Alt/SGPT 37 U/L 12-78 Normal (applies to non-numeric resul ts) [facility]) Bilirubin,Total 0.6 mg/dL 0.2-1.0 Normal (applies to non-numeric results) [facility] ([facility]) Alkaline Phosphatase 84 U/L 45-117 Normal (applies to non-num toyin results) [facility] ([facility]) Total Protein 7.5 GM/DL 6.4-8.2 Normal (applies to non-numeric re sults) [facility] ([facility]) Albumin/Globulin Ratio 1.0 Normal (applies to non-n umeric results) [facility] ([facility]) Albumin 3.7 GM/DL 3.2-5.2 Normal (applies to non-numeric resul ts) [facility] ([facility]) ID Date Data Source [id number] 08/29/2020 02:42:00 PM EDT [facility] ([facility]) Name Value Range Interpretation Code Description Data Jazmin rce(s) Supporting Document(s) Red Blood Count 7.01 10 4.30-6.10 Above high normal [facility] ([facility]) Hemoglobin 13.9 g/dL 13.5-17.5 Normal (applies to non-numeric resul ts) [facility] ([facility]) White Blood Count 14.4 10 4.0-10.0 Above high normal [facility] Hematocrit 47.1 % 42.0-52.0 Normal (applies to non-numeric resul ts) [facility] ([facility]) Mean Corpuscular Volume 67.2 fl 80.0-96.[address] [facility] ([facility]) Mean Corpuscular Hemoglobin 19.8 pg 27.0-33.[address] [facility] ([facility]) Red Cell Distribution Width 18.8 % 11.5-14.[address] [facility] ([facility]) Mean Corpuscular HGB Conc 29.5 g/dL 32.0-36.5 Below low normal [facility] Platelet Count, Automated 220 10 150-450 Normal (applies to non-numeric results) [facility] ([facility]) Nucleated Red Blood Cell % 0.0 % 0-0 Normal (applies to n on-numeric results) [facility] ([facility]) ID Date Data Source [id number] 08/29/2020 02:42:00 PM EDT [facility] ([facility]) Name Value Range Interpretation Code Description Data Jazmin rce(s) Supporting Document(s) Urate [Mass/volume] in Serum or Plasma 4.9 mg/dL 3.5-7.2 [facility] ([facility]) Natriuretic peptide.B prohormone N-Terminal [Mass/volu me] in Serum or Plasma 24 pg/mL [facility] ([facility]) ID Date Data Source [id number] 08/29/2020 02:42:00 PM EDT [facility] ([facility]) Name Value Range Interpretation Code Description Data Jazmin rce(s) Supporting Document(s) Glucose, Fasting 137 mg/dL 70-100 [facility] ([facility]) Blood Urea Nitrogen 13 mg/dL 7-18 [facility] ([facility]) Creatinine For GFR 0.85 mg/dL 0.70-1.30 [facility] ([facility]) Sodium Level 137 meq/L 136-145 [facility] ([facility]) Glomerular Filtration Rate Laboratory test result [facility] ([facility]) <content>Units are mL/min/1.73 m2</content>
<content></content>
<content>Chronic Kidney Disease Staging per NKF:</content>
<content></content>
<content>Stage I & II GFR >=60 Normal to Mildly Decreased</content>
<content>Stage III GFR 30- 59 Moderately Decreased</content>
<content>Stage IV GFR 15-29 Severely Decreased</content>
<content>Stage V GFR <15 Very Little GFR Left</content>
<content>ESRD GFR <15 on [employer] PROFESSIONAL</content>
<content></content> Chloride Level 102 meq/L 98-107 [facility] ([facility]) Potassium Serum 4.3 meq/L 3.5-5.1 [facility] ([facility]) Carbon Dioxide Level 29 meq/L 21-32 [facility] ([facility]) Anion Gap 6 meq/L 8-16 [facility] Ast/Sgot 16 U/L 7-37 [facility] Calcium Level 8.6 mg/dL 8.8-10.2 [facility] ([facility]) Alt/SGPT 37 U/L 12-78 [facility] Alkaline Phosphatase 84 U/L 45-117 [facility] ([facility] Bilirubin,Total 0.6 mg/dL 0.2-1.0 [facility] ([facility]) Total Protein 7.5 GM/DL 6.4-8.2 [facility] ([facility]) Albumin 3.7 GM/DL 3.2-5.2 [facility] ([facility] Albumin/Globulin Ratio 1.0 [facility] ([facility]) ID Date Data Source [id number] 08/29/2020 02:42:00 PM EDT [facility] ([facility]) Name Value Range Interpretation Code Description Data Jazmin rce(s) Supporting Document(s) White Blood Count 14.4 10 4.0-10.0 [facility] ([facility]) Hematocrit 47.1 % 42.0-52.0 [facility] ([facility]) Hemoglobin 13.9 g/dL 13.5-17.5 [facility] ([facility]) Red Blood Count 7.01 10 4.30-6.10 [facility] ([facility]) Mean Corpuscular Volume 67.2 fl 80.0-96.0 M [facility] ([facility]) Mean Corpuscular Hemoglobin 19.8 pg 27.0-33.0 [facility] ([facility]) Red Cell Distribution Width 18.8 % 11.5-14.5 [facility] ([facility]) Mean Corpuscular HGB Conc 29.5 g/dL 32.0-36.5 [facility] ([facility]) Platelet Count, Automated 220 10 150-450 [facility] ([facility]) Nucleated Red Blood Cell % 0.0 % 0-0 [facility] ([facility]) ID Date Data Source [id number] 06/16/2020 10:49:00 AM EST [facility] ([facility] SERVICES) Name Value Range Interpretation Code Description Data Jazmin rce(s) Supporting Document(s) Glucose, Fasting 152 mg/dL 70-100 [facility] ([facility]) Blood Urea Nitrogen 24 mg/dL 7-18 [facility] ([facility]) Creatinine For GFR 1.07 mg/dL 0.70-1.30 [facility] ([facility]) Sodium Level 135 meq/L 136-145 [facility] ([facility]) Glomerular Filtration Rate Laboratory test result [facility] ([facility]) <content>Units are mL/min/1.73 m2</content>
<content></content>
<content>Chronic Kidney Disease Staging per NKF:</content>
<content></content>
<content>Stage I & II GFR >=60 Normal to Mildly Decreased</content>
<content>Stage III GFR 30- 59 Moderately Decreased</content>
<content>Stage IV GFR 15-29 Severely Decreased</content>
<content>Stage V GFR <15 Very Little GFR Left</content>
<content>ESRD GFR <15 on [employer]</content>
<content></content> Potassium Serum 4.1 meq/L 3.5-5.1 [facility] ([facility]) Carbon Dioxide Level 31 meq/L 21-32 [facility] ([facility]) Chloride Level 99 meq/L 98-107 [facility] ([facility]) Anion Gap 5 meq/L 8-16 [facility] ([facility]) Calcium Level 9.2 mg/dL 8.8-10.2 [facility] ([facility]) Albumin 3.8 GM/DL 3.2-5.2 [facility] Phosphorus Level 4.1 mg/dL 2.5-4.9 [facility] ([facility]) ID Date Data Source [id number] 05/23/2020 07:54:00 AM EST [facility] ([facility]) Name Value Range Interpretation Code Description Data Jazmin rce(s) Supporting Document(s) White Blood Count 12.1 [facility] ([facility]) Red Blood Count 6.94 [facility] ([facility]) Platelets 172 [facility] ([facility]) Hemoglobin 13.7 [facility] ([facility]) Hematocrit 43.7 [facility] ([facility]) ID Date Data Source [id number] 05/23/2020 07:54:00 AM EST [facility] ([facility]) Name Value Range Interpretation Code Description Data Jazmin rce(s) Supporting Document(s) Blood Urea Nitrogen 20.1 [facility] ([facility]) Glucose 146 [facility] ([facility]) Glomerular filtration rate/1.73 sq M.pre dicted [Volume Rate/Area] in Serum or Plasma by Creatinine-based formula (MDRD) 60 [facility] ([facility]) Creatinine 1.2 [facility] ([facility]) Sodium 135.2 [facility] ([facility] Potassium 5.03 [facility] ([facility]) Chloride 95.5 [facility] ([facility]) Carbon Dioxide 30.4 [facility] ([facility]) Phosphorus 3.2 [facility] ([facility]) Calcium 9.7 [facility] ([facility]) Albumin 4.4 [facility] ([facility]) ID Date Data Source [id number] 05/13/2020 10:57:00 AM EST [facility] ([facility]) Name Value Range Interpretation Code Description Data Jazmin rce(s) Supporting Document(s) Blood Urea Nitrogen 52 mg/dL 7-18 [facility] ([facility]) Creatinine For GFR 1.63 mg/dL 0.70-1.30 [facility] ([facility]) Glucose, Fasting 148 mg/dL 70-100 [facility] ([facility]) Sodium Level 134 meq/L 136-145 [facility] ([facility]) Glomerular Filtration Rate 44.9 [facility] ([facility]) <content>Units are mL/min/1.73 m2</content>
<content></content>
<content>Chronic Kidney Disease Staging per NKF:</content>
<content></content>
<content>Stage I & II GFR >=60 Normal to Mildly Decreased</content>
<content>Stage III GFR 30-59 Moderately Decreased</content>
<content>Stage IV GFR 15-29 Severely Decreased</content>
<content>Stage V GFR <15 Very Little GFR Left</content>
<content>ESRD GFR <15 on [employer]</content>
<content></content> Chloride Level 102 meq/L 98-107 [facility] ([facility]) Carbon Dioxide Level 24 meq/L 21-32 [facility] ([facility]) Potassium Serum 5.6 meq/L 3.5-5.1 [facility] ([facility]) Testing was performed on a SLIGHTLY hemo lyzed specimen. Suggest recollection of specimen for more accurate test results. Calcium Level 9.5 mg/dL 8.8-10.2 [facility] ([facility]) Anion Gap 8 meq/L 8-16 [facility] ([facility]) Albumin 4.0 GM/DL 3.2-5.2 [facility] Phosphorus Level 4.4 mg/dL 2.5-4.9 [facility] ([facility]) ID Date Data Source [id number] 05/09/2020 01:02:00 PM EST [facility] ([facility]) Name Value Range Interpretation Code Description Data Jazmin rce(s) Supporting Document(s) Glucose, Fasting 141 mg/dL 70-100 [facility] ([facility]) Creatinine For GFR 1.59 mg/dL 0.70-1.30 [facility] ([facility]) Blood Urea Nitrogen 45 mg/dL 7-18 [facility] ([facility]) Sodium Level 136 meq/L 136-145 [facility] ([facility]) Glomerular Filtration Rate 46.2 [facility] ([facility]) <content>Units are mL/min/1.73 m2</content>
<content></content>
<content>Chronic Kidney Disease Staging per NKF:</content>
<content></content>
<content>Stage I & II GFR >=60 Normal to Mildly Decreased</content>
<content>Stage III GFR 30-59 Moderately Decreased</content>
<content>Stage IV GFR 15-29 Severely Decreased</content>
<content>Stage V GFR <15 Very Little GFR Left</content>
<content>ESRD GFR <15 on [employer]</content>
<content></content> Chloride Level 105 meq/L 98-107 [facility] ([facility]) Carbon Dioxide Level 24 meq/L 21-32 [facility] ([facility]) Potassium Serum 5.6 meq/L 3.5-5.1 [facility] ([facility]) Calcium Level 9.2 mg/dL 8.8-10.2 [facility] ([facility]) Anion Gap 7 meq/L 8-16 [facility] ([facility]) Albumin 4.0 GM/DL 3.2-5.2 [facility] ([facility]) Phosphorus Level 5.2 mg/dL 2.5-4.9 [facility] ([facility]) ID Date Data Source [id number] 05/09/2020 01:02:00 PM EST [facility] ([facility]) Name Value Range Interpretation Code Description Data Jazmin rce(s) Supporting Document(s) White Blood Count 10.6 10 4.0-10.0 [facility] ([facility]) Hemoglobin 14.2 g/dL 13.5-17.5 [facility] ([facility]) Hematocrit 49.5 % 42.0-52.0 [facility] ([facility]) Red Blood Count 7.47 10 4.30-6.10 [facility] ([facility]) Mean Corpuscular Hemoglobin 19.0 pg 27.0-33.0 [facility] ([facility]) Mean Corpuscular Volume 66.3 fl 80.0-96.0 [facility] Mean Corpuscular HGB Conc 28.7 g/dL 32.0-36.5 [facility] Red Cell Distribution Width 19.2 % 11.5-14.5 [facility] ([facility]) Platelet Count, Automated 198 10 150-450 [facility] ([facility]) Nucleated Red Blood Cell % 0.0 % 0-0 [facility] ([facility]) ID Date Data Source [id number] 04/29/2020 12:25:00 PM EST [facility] ([facility]) Name Value Range Interpretation Code Description Data Jazmin rce(s) Supporting Document(s) Urate [Mass/volume] in Serum or Plasma 6.9 mg/dL 3.5-7.2 Normal (applies to non- numeric results) [facility]) Natriuretic peptide.B prohormone N-Terminal [Mass/volu me] in Serum or Plasma 12 pg/mL Normal (applies to non-numeric results) [facility] ([facility]) ID Date Data Source [id number] 04/29/2020 12:25:00 PM EST [facility] ([facility]) Name Value Range Interpretation Code Description Data Jzamin rce(s) Supporting Document(s) Triglycerides Level 140 mg/dL Normal (applies to non-nume tacos results) [facility]) Cholesterol Level 152 mg/dL Normal (applies to non-numeri c results) [facility]) HDL Cholesterol 30 mg/dL Below low normal [facility] ([facility]) LDL Cholesterol 94 mg/dL Normal (applies to non-numeric results) [facility]) Non-HDL-C 122 mg/dL Normal (applies to non-numeric resul ts) [facility]) Cholesterol Risk Ratio 5.066 Above high normal [facility]) ID Date Data Source [id number] 04/29/2020 12:25:00 PM EST [facility] ([facility]) Name Value Range Interpretation Code Description Data Jazmin rce(s) Supporting Document(s) Urate [Mass/volume] in Serum or Plasma 6.9 mg/dL 3.5-7.2 [facility] ([facility]) Natriuretic peptide.B prohormone N-Terminal [Mass/volu me] in Serum or Plasma 12 pg/mL [facility] ([facility]) ID Date Data Source [id number] 04/29/2020 12:25:00 PM EST [facility] ([facility]) Name Value Range Interpretation Code Description Data Jazmin rce(s) Supporting Document(s) Cholesterol Level 152 mg/dL [facility] ([facility]) Triglycerides Level 140 mg/dL [facility]) LDL Cholesterol 94 mg/dL [facility] ([facility]) HDL Cholesterol 30 mg/dL [facility] ([facility]) Non-HDL-C 122 mg/dL [facility] ([facility]) Cholesterol Risk Ratio 5.066 [facility] ([facility]) ID Date Data Source [id number] 04/29/2020 12:25:00 PM EST [facility] ([facility]) Name Value Range Interpretation Code Description Data Jazmin rce(s) Supporting Document(s) Urate [Mass/volume] in Serum or Plasma 6.9 mg/dL 3.5-7.2 [facility] ([facility]) Natriuretic peptide.B prohormone N-Terminal [Mass/volu me] in Serum or Plasma 12 pg/mL [facility] ([facility]) ID Date Data Source [id number] 04/29/2020 12:25:00 PM EST [facility] ([facility]) Name Value Range Interpretation Code Description Data Jazmin rce(s) Supporting Document(s) Triglycerides Level 140 mg/dL [facility] ([facility]) LDL Cholesterol 94 mg/dL [facility] ([facility]) Cholesterol Level 152 mg/dL [facility] ([facility]) HDL Cholesterol 30 mg/dL [facility] ([facility]) Cholesterol Risk Ratio 5.066 [facility] ([facility]) Non-HDL-C 122 mg/dL [facility] ([facility]) ID Date Data Source [id number] 03/22/2020 01:35:00 PM EST [facility] ([facility]) Name Value Range Interpretation Code Description Data Jazmin rce(s) Supporting Document(s) Erythrocyte sedimentation rate by Westergren method 7 mm/hr 0-20 [facility] ([facility]) C reactive protein [Mass/volume] in Serum or Plasma by High sensitivity method 0.66 mg/dL 0.00-0.30 [facility] ([facility]) ID Date Data Source [id number] 03/22/2020 01:35:00 PM EST [facility] ([facility]) Name Value Range Interpretation Code Description Data Jazmin rce(s) Supporting Document(s) White Blood Count 12.3 10 4.0-10.0 [facility] ([facility]) Red Blood Count 6.84 10 4.30-6.10 [facility] ([facility]) Hemoglobin 13.1 g/dL 13.5-17.5 [facility] ([facility]) Mean Corpuscular Volume 67.0 fl 80.0-96.0 M EDENT ([facility]) Hematocrit 45.8 % 42.0-52.0 [facility] ([facility]) Mean Corpuscular Hemoglobin 19.2 pg 27.0-33.0 [facility] ([facility]) Red Cell Distribution Width 18.5 % 11.5-14.5 [facility] ([facility]) Mean Corpuscular HGB Conc 28.6 g/dL 32.0-36.5 [facility] ([facility]) Platelet Count, Automated 176 10 150-450 [facility] ([facility]) Neutrophils % 66.3 % 36.0-66.0 [facility] ([facility] Lymph % 25.9 % 24.0-44.0 [facility] Sanders % 6.3 % 0.0-5.0 [facility] Eos % 0.0 % 0.0-3.0 [facility] Immature Granulocyte % 0.9 % 0-3.0 [facility] ([facility]) Baso % 0.6 % 0.0-1.0 [facility] ([facility]) Neutrophils # 8.2 10 1.5-8.5 [facility] Nucleated Red Blood Cell % 0.0 % 0-0 [facility] ([facility] ) Lymph # 3.2 10 1.5-5.0 [facility] ([facility]) Sanders # 0.8 10 0.0-0.8 [facility] ([facility] ) Eos # 0.0 10 0.0-0.5 [facility] ([facility] ) Baso # 0.1 10 0.0-0.2 [facility] ([facility]) Procedure Social History Code Duration Value Status Description Data Source(s ) Smoking 11/01/2020 09:29:59 AM EDT Never smoked tobacco (findi ng) completed Never smoked tobacco (finding) [facility] (Jackson Lawler MD [facility]) Smoking 11/01/2020 09:28:07 AM EDT Never smoked tobacco (findi ng) completed Never smoked tobacco (finding) [facility] (Jackson Lawler MD [facility]) Smoking 09/01/2020 12:00:00 AM EDT Patient has never smoked co mpleted Patient has never smoked [facility] ([facility]) Smoking 06/13/2020 12:00:00 AM EST Patient has never smoked co mpleted Patient has never smoked [facility] ([facility]) Vital Signs ID Date Data Source UNK Name Value Range Interpretation Code Description Data Source(s) Systolic blood pressure 140 mm[Hg] 140 mm[Hg] M [facility]ENT ([facility]) Diastolic [facility] 80 [facility]] [facility] Body temperature 98.4 [degF] 98.4 [degF] [facility] ([facility]) Body height 68 [in_i] 68 [in_i] [facility] ([facility]) 5'8" Body weight 251.00 [lb_av] 251.00 [lb_av] [facility] ([facility]) Body mass index (BMI) [Ratio] 38.2 kg/m2 38.2 k g/m2 [facility] ([facility]) [place] body weight 154 [lb_av] 154 [lb_av] [facility] ([facility]) Body weight 113.854 kg 113.854 [facility] ) Body surface area Derived from formula 2.25 m2 2.25 m2 [facility] ) Body temperature 97.2 [degF] 97.2 [degF] [facility] ([facility]) Body height 68 [in_i] 68 [in_i] [facility] ([facility]) 5'8" Body weight 250.00 [lb_av] 250.00 [lb_av] [facility] T ([facility]) Body mass index (BMI) [Ratio] 38.0 kg/m2 38.0 k g/m2 [facility] ([facility]) Diastolic blood pressure--supine 70 mm[Hg] 70 mm[Hg] [facility] ([facility]) Body weight 255.00 [lb_av] 255.00 [lb_av] [facility] ([facility]) Body height 69 [in_i] 69 [in_i] [facility] ([facility]) 5'9" Body mass index (BMI) [Ratio] 37.7 kg/m2 37.7 k g/m2 [facility] ([facility]) Heart rate 60 /min 60 /min [facility] ([facility]) regular Respiratory rate 16 /min 16 /min [facility] ( [facility]) Systolic blood pressure--sitting 136 mm[Hg] 136 mm[Hg] [facility] ([facility]) large cuff, Ra Diastolic blood pressure--sitting 70 mm[Hg] 70 mm[Hg] [facility] ([facility]) large cuff, Ra Systolic blood pressure--supine 138 mm[Hg] 138 mm[Hg] [facility] ([facility]) [place] body weight 154 [lb_av] 154 [lb_av] [facility] T ([facility], ) Body weight 115.668 kg 115.668 kg [facility] Oxygen saturation in Arterial blood by Pulse oximetry 96 % 96 % [facility] ([facility], ) Body temperature 98.6 [degF] 98.6 [degF] [facility] ) Body height 68 [in_i] 68 [in_i] [facility] 5'8" Body weight 255.00 [lb_av] 255.00 [lb_av] [facility] ([facility]) Body mass index (BMI) [Ratio] 38.8 kg/m2 38.8 k g/m2 [facility] ([facility]) Body surface area Derived from formula 2.[address] [facility] ([facility]) Body mass index (BMI) [Ratio] 38.8 kg/m2 38.8 k g/m2 [facility] ([facility]) [place] body weight 154 [lb_av] 154 [lb_av] [facility] ([facility]) Body weight 115.[address] [facility] ([facility]) Body surface area Derived from formula 2.[address] [facility] ([facility]) Systolic blood pressure 122 mm[Hg] 122 mm[Hg] [facility] Diastolic blood pressure 80 mm[Hg] 80 mm[Hg] [facility] ([facility]) Heart rate 57 /min 57 /min [facility] ([facility]) Oxygen saturation in Arterial blood by Pulse oximetry 96 % 96 % [facility] ([facility]) Body temperature 98.6 [degF] 98.6 [degF] [facility] ([facility]) Body height 68 [in_i] 68 [in_i] [facility] ([facility]) 5'8" Body weight 255.00 [lb_av] 255.00 [lb_av] [facility] T ([facility]) Diastolic blood pressure--sitting 82 mm[Hg] 82 mm[Hg] [facility] ([facility]) large cuff, Ra; drifting to 135/69 after 10min Body weight 260.00 [lb_av] 260.00 [lb_av] [facility] ([facility]) Body height 69 [in_i] 69 [in_i] [facility] ([facility]) 5'9" Body mass index (BMI) [Ratio] 38.4 kg/m2 38.4 k g/m2 [facility] ([facility]) Heart rate 56 /min 56 /min [facility] ([facility]) regular Respiratory rate 16 /min 16 /min [facility] ( [facility]) Systolic blood pressure--sitting 158 mm[Hg] 158 mm[Hg] [facility] ([facility]) large cuff, Ra; drifting to 135/69 after 10min Diastolic blood pressure--sitting 66 mm[Hg] 66 mm[Hg] [facility] ([facility]) large cuff, Ra; 129/72 [place] Body weight 260.00 [lb_av] 260.00 [lb_av] [facility] T ([facility]) Body height 69 [in_i] 69 [in_i] [facility] ([facility] 5'9" Body mass index (BMI) [Ratio] 38.4 kg/m2 38.4 k g/m2 [facility] ([facility]) Heart rate 60 /min 60 /min [facility] ([facility]) regular Respiratory rate 16 /min 16 /min [facility] ( [facility]) Systolic blood pressure--sitting 124 mm[Hg] 124 mm[Hg] [facility] ([facility]) large cuff, Ra; 129/72 [place] Systolic blood pressure--supine 127 mm[Hg] 127 mm[Hg] [facility] ([facility]) Diastolic blood pressure--supine 66 mm[Hg] 66 mm[Hg] [facility] ([facility]) Respiratory rate 16 /min 16 /min [facility] ( [facility]) Systolic blood pressure--sitting 105 mm[Hg] 105 mm[Hg] [facility] ([facility]) large cuff, Ra Body weight 263.00 [lb_av] 263.00 [lb_av] [facility] T ([facility]) Body height 69 [in_i] 69 [in_i] [facility] ([facility]) 5'9" Systolic blood pressure--supine 108 mm[Hg] 108 mm[Hg] [facility] ([facility]) Diastolic blood pressure--supine 62 mm[Hg] 62 mm[Hg] [facility] ([facility]) Body mass index (BMI) [Ratio] 38.8 kg/m2 38.8 k g/m2 [facility] ([facility]) Heart rate 60 /min 60 /min [facility] ([facility]) regular Diastolic blood pressure--sitting 58 mm[Hg] 58 mm[Hg] [facility] ([facility]) large cuff, Ra Systolic blood pressure--sitting 104 mm[Hg] 104 mm[Hg] [facility] ([facility]) large cuff, Ra Respiratory rate 18 /min 18 /min [facility] ( [facility]) Body height 69 [in_i] 69 [in_i] [facility] ([facility] 5'9" Oxygen saturation in Arterial blood by Pulse oximetry --post exerci se 95 % 95 % [facility] ([facility]) Body weight 270.00 [lb_av] 270.00 [lb_av] [facility] T ([facility]) Body mass index (BMI) [Ratio] 39.9 kg/m2 39.9 k g/m2 [facility] ([facility]) Heart rate 60 /min 60 /min [facility] ([facility]) regular Diastolic blood pressure--sitting 62 mm[Hg] 62 mm[Hg] [facility] ([facility]) large cuff, Ra Systolic blood pressure--supine 124 mm[Hg] 124 mm[Hg] [facility] ([facility]) Diastolic blood pressure--supine 70 mm[Hg] 70 mm[Hg] [facility] ([facility]) Oxygen saturation in Arterial blood by Pulse oximetry 96 % 96 % [facility] ([facility]) Body temperature 97.5 [degF] 97.5 [degF] [facility] ([facility] Body temperature 97.1 [degF] 97.1 [degF] [facility] ([facility] ) Diastolic blood pressure 82 mm[Hg] 82 mm[Hg] [facility] ([facility], ) Body height 68 [in_i] 68 [in_i] [facility] ([facility], ) 5'8" Systolic blood pressure 128 mm[Hg] 128 mm[Hg] M CASSANDRA ([facility], ) [place] body weight 154 [lb_av] 154 [lb_av] [facility] T ([facility]) Heart rate 51 /min 51 /min [facility] Oxygen saturation in Arterial blood by Pulse oximetry 98 % 98 % [facility] ([facility]) Body weight 260.00 [lb_av] 260.00 [lb_av] [facility] T ([facility]) Body mass index (BMI) [Ratio] 39.5 kg/m2 39.5 k g/m2 [facility] ([facility]) Body weight 117.[address] [facility] ([facility]) Body surface area Derived from formula 2.[address] [facility] ([facility]) Body temperature 96.9 [degF] 96.9 [degF] [facility] ([facility]) Heart rate 52 /min 52 /min [facility] ([facility]) Systolic blood pressure 124 mm[Hg] 124 mm[Hg] [facility] Diastolic blood pressure 88 mm[Hg] 88 mm[Hg] [facility]) Oxygen saturation in Arterial blood by Pulse oximetry 98 % 98 % [facility] ([facility]) Body height 68 [in_i] 68 [in_i] [facility] ([facility]) 5'8" Body weight 259.00 [lb_av] 259.00 [lb_av] [facility] ([facility]) Body mass index (BMI) [Ratio] 39.4 kg/m2 39.4 k g/m2 [facility] ([facility]) [place] body weight 154 [lb_av] 154 [lb_av] [facility] ([facility]) Body weight 117.[address] [facility] ([facility]) Body surface area Derived from formula 2.[address] [facility] ([facility]) Body height 68 [in_i] 68 [in_i] [facility] ([facility]) 5'8" Body weight 270.00 [lb_av] 270.00 [lb_av] [facility] ([facility]) Body temperature 97.6 [degF] 97.6 [degF] [facility] ([facility]) Body mass index (BMI) [Ratio] 41.0 kg/m2 41.0 k g/m2 [facility]
[2021-02-23] MEDS ORDERED: LIDOCAINE 1% SDV 30ML VIAL As Ordered ONE (07:19)
[2021-02-23] MEDS ORDERED: LIDOCAINE 2% MDV 20ML VIAL SQ PRN (07:25)
[2021-02-23] MEDS ORDERED: propofoL 200 MG/20 ML VIAL As Ordered ONE (09:00)
[2021-02-23] MEDS ORDERED: LIDOCAINE 2% 100MG/5ML SDV (FOR ANES.) As Ordered ONE (09:00)
--- NOTE | 2021-02-23 09:16 | ROOR ---
Patient Name: Silas Renteria Procedure Date: 02/23/2021 8:11 AM Date of : 1950 Age: 71 Room: [facility] Gender: Male Note Status: Finalized Procedure: Upper GI endoscopy Indications: Follow-up of esophageal reflux Providers: Tim Espinoza MD Referring MD: Lowell Lloyd MD Requesting Provider: Medicines: Monitored Anesthesia Care Complications: No immediate complications. Procedure: Pre-Anesthesia Assessment: - Prior to the procedure, a History and Physical was performed, and patient medications and allergies were reviewed. The patient is competent. The risks and benefits of the procedure and the sedation options and risks were discussed with the patient. All questions were answered and informed consent was obtained. Patient identification and proposed procedure were verified by the physician, the nurse and the signwriter in the procedure room. Mental Status Examination: alert and oriented. Prophylactic Antibiotics: The patient does not require prophylactic antibiotics. Prior Anticoagulants: The patient has taken no previous anticoagulant or antiplatelet agents. ASA Grade Assessment: III - A patient with severe systemic disease. After reviewing the risks and benefits, the patient was deemed in satisfactory condition to undergo the procedure. The anesthesia plan was to use monitored anesthesia care (MAC). Immediately prior to administration of medications, the patient was re-assessed for adequacy to receive sedatives. The heart rate, respiratory rate, oxygen saturations, blood pressure, adequacy of pulmonary ventilation, and response to care were monitored throughout the procedure. The physical status of the patient was re-assessed after the procedure. The Endoscope was introduced through the mouth, and advanced to the second part of duodenum. The upper GI endoscopy was accomplished without difficulty. The patient tolerated the procedure well. Findings: The examined esophagus was normal. The entire examined stomach was normal. The first portion of the duodenum and second portion of the duodenum were normal. Impression: - Normal esophagus. - Normal stomach. - Normal first portion of the duodenum and second portion of the duodenum. - No specimens collected. Recommendation: - Discharge patient to home. - Resume previous diet. - Continue present medications. Procedure Code(s): --- Professional --- 29032, Esophagogastroduodenoscopy, flexible, transoral; diagnostic, including collection of specimen(s) by brushing or washing, when performed (separate procedure) Diagnosis Code(s): --- Professional --- K21.9, Gastro-esophageal reflux disease without esophagitis CPT copyright 2019 [employer]. All rights reserved. The codes documented in this report are preliminary and upon shear helper review may be revised to meet current compliance requirements. Tim Espinoza MD Tim Espinoza MD 02/23/2021 9:15:49 AM Electronically signed by Tim Espinoza MD Number of Addenda: 0 Note Initiated On: 02/23/2021 8:11 AM Estimated Blood Loss: Estimated blood loss: none.
--- NOTE | 2021-02-23 09:26 | ROOR ---
Patient Name: Silas Renteria Procedure Date: 02/23/2021 8:13 AM Date of : 1950 Age: 71 Room: [facility] Gender: Male Note Status: Finalized Procedure: Colonoscopy Indications: High risk colon cancer surveillance: Personal history of colonic polyps, Last colonoscopy: 2015 Providers: Tim Espinoza MD Referring MD: Lowell Lloyd MD Requesting Provider: Medicines: Monitored Anesthesia Care Complications: No immediate complications. Procedure: Pre-Anesthesia Assessment: - Prior to the procedure, a History and Physical was performed, and patient medications and allergies were reviewed. The patient is competent. The risks and benefits of the procedure and the sedation options and risks were discussed with the patient. All questions were answered and informed consent was obtained. Patient identification and proposed procedure were verified by the physician, the nurse and the strip cutting machine operator in the procedure room. Mental Status Examination: alert and oriented. Prophylactic Antibiotics: The patient does not require prophylactic antibiotics. Prior Anticoagulants: The patient has taken no previous anticoagulant or antiplatelet agents. ASA Grade Assessment: III - A patient with severe systemic disease. After reviewing the risks and benefits, the patient was deemed in satisfactory condition to undergo the procedure. The anesthesia plan was to use monitored anesthesia care (MAC). Immediately prior to administration of medications, the patient was re-assessed for adequacy to receive sedatives. The heart rate, respiratory rate, oxygen saturations, blood pressure, adequacy of pulmonary ventilation, and response to care were monitored throughout the procedure. The physical status of the patient was re-assessed after the procedure. The Colonoscope was introduced through the anus and advanced to the cecum, identified by appendiceal orifice and ileocecal valve. The colonoscopy was performed without difficulty. The patient tolerated the procedure well. The quality of the bowel preparation was good. Findings: Hemorrhoids were found on perianal exam. A diminutive polyp was found in the cecum. The polyp was sessile. The polyp was removed with a jumbo cold forceps. Resection and retrieval were complete. The pathology specimen was placed into Bottle Number 1. A 3 mm polyp was found in the ascending colon. The polyp was sessile. The polyp was removed with a jumbo cold forceps. Resection and retrieval were complete. The pathology specimen was placed into Bottle Number 1. A 3 mm polyp was found in the descending colon. The polyp was sessile. The polyp was removed with a jumbo cold forceps. Resection and retrieval were complete. The pathology specimen was placed into Bottle Number 2. There was evidence of a prior end-to-end colo-rectal anastomosis at 25 cm proximal to the anus. This was patent and was characterized by healthy appearing mucosa and an intact staple line. The anastomosis was traversed. A few small-mouthed diverticula were found in the sigmoid colon. Non-bleeding external and internal hemorrhoids were found. The hemorrhoids were medium-sized. Impression: - Hemorrhoids found on perianal exam. - One diminutive polyp in the cecum, removed with a jumbo cold forceps. Resected and retrieved. - One 3 mm polyp in the ascending colon, removed with a jumbo cold forceps. Resected and retrieved. - One 3 mm polyp in the descending colon, removed with a jumbo cold forceps. Resected and retrieved. - Patent end-to-end colo-rectal anastomosis, characterized by healthy appearing mucosa and an intact staple line. - Diverticulosis in the sigmoid colon. - Non-bleeding external and internal hemorrhoids. Recommendation: - Discharge patient to home. - Resume previous diet. - Continue present medications. - Await pathology results. - Return to endoscopist as previously scheduled. Procedure Code(s): --- Professional --- 89866, Colonoscopy, flexible; with biopsy, single or multiple Diagnosis Code(s): --- Professional --- Z86.010, Personal history of colonic polyps K64.8, Other hemorrhoids K63.5, Polyp of colon Z98.0, Intestinal bypass and anastomosis status K57.30, Diverticulosis of large intestine without perforation or abscess without bleeding CPT copyright 2019 [employer]. All rights reserved. The codes documented in this report are preliminary and upon invoice coder review may be revised to meet current compliance requirements. Tim Espinoza MD Tim Espinoza MD 02/23/2021 9:26:09 AM Electronically signed by Tim Espinoza MD Number of Addenda: 0 Note Initiated On: 02/23/2021 8:13 AM Estimated Blood Loss: Estimated blood loss was minimal.
[2021-02-23 09:38] VITALS: BP 128/67
== END 2021-02-23 09:50 | disposition home or self-care (01) ==
LOC: M OPP 06:54
PROVIDERS: ATTEND Surgery
DX: K21.9 Gastro-esophageal reflux disease without esophagitis (principal); D12.0 Benign neoplasm of cecum; D12.2 Benign neoplasm of ascending colon; D12.4 Benign neoplasm of descending colon; K64.8 Other hemorrhoids; K57.30 Diverticulosis of large intestine without perforation or abscess without bleeding; Z98.1 Arthrodesis status; Z86.010 Personal history of colon polyps

== ENCOUNTER → 2021-02-28 | Outpatient (CLI) | payer MEDICARE, OTHER ==
[~2021-02-28] MED LIST changes: -NS 1,000 ML IV ONE
--- NOTE | 2021-02-28 12:09 | REP ---
INDICATION: SLEEP APNEA COMPARISON: Multiple the latest 02/15/2020 TECHNIQUE: Standard helical technique without contrast FINDINGS: There is no significant change in appearance of the mediastinum or pulmonary cuca. There are no pleural or pericardial effusions. The imaged upper abdomen shows scattered areas of decreased density throughout the hepatic parenchyma and particularly in the posterior segment of the right lobe of the liver. There are scattered areas of decreased density in each kidney. There is no significant change in appearance of the imaged osseous structures. Evaluation of the lung argueta shows scattered asymmetric densities and ground-glass opacities and again particularly in the lung bases and inferior lingula with bronchiectasis particularly varicoid and possibly early saccular. The irregular focal density in the superior segment of the left lower lobe is completely stable. No new abnormal opacities have developed. IMPRESSION: 1. Stable lung field findings consistent with pulmonary fibrosis. 2. There is evidence of geographic fatty infiltration of the liver. 3. Findings involving the kidneys which are incompletely imaged. A new renal lesion cannot be ruled out. Pre and postcontrast enhanced renal CT is suggested for complete evaluation. The patient's last abdominal and pelvic CT was obtained 11/16/2016. The prior renal ultrasound examination of 06/21/2020 did show a solid-appearing nodule in the lower pole of the right kidney for which MRI was recommended. <Electronically signed by Randolph Martini > 02/28/21 [id number]
== END ==
LOC: M RAD 10:42
PROVIDERS: ATTEND Internal Medicine Pulmonary Disease
DX: G47.30 Sleep apnea, unspecified (principal); R91.8 Other nonspecific abnormal finding of lung field; N28.9 Disorder of kidney and ureter, unspecified

== ENCOUNTER → 2021-03-02 | Outpatient (CLI) | payer MEDICARE, OTHER ==
[2021-03-02 13:57] LABS: HEMATOCRIT 51.1 % (42.0-52.0); HEMOGLOBIN 15.2 g/dl (13.5-17.5); MEAN CORPUSCULAR HEMOGLOBIN 19.7 pg (27.0-33.0); MEAN CORPUSCULAR HGB CONC 29.7 g/dl (32.0-36.5); MEAN CORPUSCULAR VOLUME 66.4 fl (80.0-96.0); PLATELET COUNT, AUTOMATED 222 10^3/uL (150-450); WHITE BLOOD COUNT 13.2 10^3/uL (4.0-10.0)
[2021-03-02 14:38] LABS: ALBUMIN 3.6 GM/DL (3.2-5.2); ALT/SGPT 43 U/L (12-78); BILIRUBIN,TOTAL 0.5 MG/DL (0.2-1.0); BLOOD UREA NITROGEN 21 MG/DL (7-18); CALCIUM LEVEL 9.2 MG/DL (8.8-10.2); CARBON DIOXIDE LEVEL 30 MEQ/L (21-32); CHLORIDE LEVEL 99 MEQ/L (98-107); CREATININE FOR GFR 1.02 MG/DL (0.70-1.30); GLOMERULAR FILTRATION RATE > 60.0 (>42); GLUCOSE, FASTING 138 MG/DL (70-100); NT-PRO BNP 23 PG/ML (<125); POTASSIUM SERUM 4.5 MEQ/L (3.5-5.1); SODIUM LEVEL 136 MEQ/L (136-145); TOTAL PROTEIN 7.7 GM/DL (6.4-8.2); URIC ACID 4.8 MG/DL (3.5-7.2)
== END ==
LOC: M LAB 12:58
PROVIDERS: ATTEND Internal Medicine Cardiovascular Disease
DX: I50.32 Chronic diastolic (congestive) heart failure (principal)

== ENCOUNTER → 2021-05-15 | Outpatient (CLI) | payer MEDICARE, OTHER ==
[~2021-05-15] MED LIST changes: +CAND16TA17 PO; -CAND16TA7 PO
== END ==
LOC: M RAD 13:27
PROVIDERS: ATTEND Family Medicine
DX: N28.1 Cyst of kidney, acquired (principal); N28.89 Other specified disorders of kidney and ureter

== ENCOUNTER → 2021-06-01 | Outpatient (CLI) | payer MEDICARE, OTHER ==
[2021-06-01 13:05] LABS: CALCIUM LEVEL 9.3 MG/DL (8.8-10.2); CREATININE FOR GFR 1.37 MG/DL (0.70-1.30); GLOMERULAR FILTRATION RATE 54.7 (>42)
== END ==
LOC: M LAB 11:53
PROVIDERS: ATTEND Family Medicine
DX: D41.01 Neoplasm of uncertain behavior of right kidney (principal)

== ENCOUNTER → 2021-08-04 | Outpatient (CLI) | payer MEDICARE, OTHER ==
[~2021-08-04] MED LIST changes: -D31000TA2 PO; +VITA100093 PO
[2021-08-04 12:19] LABS: BASO % 0.4 % (0.0-1.0); HEMATOCRIT 53.8 % (42.0-52.0); LYMPH # 3.1 10^3/uL (1.5-5.0); LYMPH % 31.5 % (24.0-44.0); MEAN CORPUSCULAR HEMOGLOBIN 19.2 pg (27.0-33.0); MEAN CORPUSCULAR HGB CONC 30.3 g/dl (32.0-36.5); MEAN CORPUSCULAR VOLUME 63.3 fl (80.0-96.0); MONO # 1.4 10^3/uL (0.0-0.8); MONO % 14.1 % (2.0-8.0); NEUTROPHILS # 5.2 10^3/uL (1.5-8.5); NEUTROPHILS % 53.2 % (36.0-66.0); PLATELET COUNT, AUTOMATED 201 10^3/uL (150-450); WHITE BLOOD COUNT 9.8 10^3/uL (4.0-10.0)
[2021-08-04 12:20] LABS: HEMOGLOBIN 16.3 g/dl (13.5-17.5)
[2021-08-04 12:55] LABS: ALBUMIN 3.4 GM/DL (3.2-5.2); ALT/SGPT 101 U/L (12-78); AMYLASE 122 U/L (25-115); BILIRUBIN,TOTAL 0.5 MG/DL (0.2-1.0); BLOOD UREA NITROGEN 15 MG/DL (7-18); CALCIUM LEVEL 8.6 MG/DL (8.8-10.2); CARBON DIOXIDE LEVEL 28 MEQ/L (21-32); CHLORIDE LEVEL 96 MEQ/L (98-107); CREATININE FOR GFR 1.24 MG/DL (0.70-1.30); GLOMERULAR FILTRATION RATE > 60.0 (>42); GLUCOSE, FASTING 128 MG/DL (70-100); LIPASE 270 U/L (73-393); POTASSIUM SERUM 4.1 MEQ/L (3.5-5.1); SODIUM LEVEL 131 MEQ/L (136-145); TOTAL PROTEIN 7.3 GM/DL (6.4-8.2)
== END ==
LOC: M RAD 11:36
PROVIDERS: ATTEND Family Medicine
DX: R53.81 Other malaise (principal); R05.9 Cough, unspecified

== ENCOUNTER → 2021-08-10 | Outpatient (CLI) | payer MEDICARE, OTHER | LOC: M WHC 09:59 | PROVIDERS: ATTEND Family Medicine | DX: R10.11 Right upper quadrant pain (principal) ==

== ENCOUNTER → 2021-11-02 | Outpatient (CLI) | payer MEDICARE, OTHER ==
[~2021-11-02] MED LIST changes: +ALBU2.5V10 INH; -ALBU83IN INH
[2021-11-02 14:18] LABS: ALBUMIN 3.8 GM/DL (3.2-5.2); BLOOD UREA NITROGEN 23 MG/DL (7-18); CALCIUM LEVEL 9.1 MG/DL (8.8-10.2); CARBON DIOXIDE LEVEL 30 MEQ/L (21-32); CHLORIDE LEVEL 101 MEQ/L (98-107); CREATININE FOR GFR 0.92 MG/DL (0.70-1.30); GLOMERULAR FILTRATION RATE > 60.0 (>42); GLUCOSE, FASTING 142 MG/DL (70-100); PHOSPHORUS LEVEL 3.5 MG/DL (2.5-4.9); SODIUM LEVEL 136 MEQ/L (136-145)
== END ==
LOC: M LAB 12:27
PROVIDERS: ATTEND Internal Medicine Cardiovascular Disease
DX: I10 Essential (primary) hypertension (principal)

== ENCOUNTER → 2022-01-16 | Outpatient (CLI) | payer MEDICARE, OTHER | LOC: M RAD 14:29 | PROVIDERS: ATTEND Physician Assistant | DX: M25.551 Pain in right hip (principal) ==

== ENCOUNTER → 2022-02-13 | Outpatient (CLI) | payer MEDICARE, OTHER | LOC: M WHC 07:56 | PROVIDERS: ATTEND Family Medicine | DX: N64.4 Mastodynia (principal) | CPT/HCPCS: 77066; G0279 ==

== ENCOUNTER → 2022-02-22 | Outpatient (CLI) | payer MEDICARE, OTHER | LOC: M RAD 18:14 | PROVIDERS: ATTEND Internal Medicine Pulmonary Disease | DX: J84.10 Pulmonary fibrosis, unspecified (principal) ==

== ENCOUNTER 2022-02-26 12:13 | Emergency (ER) | payer MEDICARE, OTHER ==
[~2022-02-26] VITALS: Ht 172.7 cm; Wt 109.1 kg
[2022-02-26] MEDS ORDERED: NITROGLYCERIN 0.4 MG SUBL TABLET SL PRN (12:45)
[2022-02-26] MEDS ORDERED: ASPIRIN 81 MG CHEW TABLET PO ONE (12:45)
[2022-02-26 13:08] LABS: BASO # 0.1 10^3/uL (0.0-0.2); BASO % 0.7 % (0.0-1.0); HEMATOCRIT 54.7 % (42.0-52.0); LYMPH % 28.1 % (24.0-44.0); MEAN CORPUSCULAR HEMOGLOBIN 19.1 pg (27.0-33.0); MEAN CORPUSCULAR HGB CONC 29.4 g/dl (32.0-36.5); MONO % 7.1 % (2.0-8.0); NEUTROPHILS # 8.9 10^3/uL (1.5-8.5); PLATELET COUNT, AUTOMATED 199 10^3/uL (150-450); RED BLOOD COUNT 8.41 10^6/uL (4.30-6.10); WHITE BLOOD COUNT 14.1 10^3/uL (4.0-10.0)
[2022-02-26 13:12] LABS: HEMOGLOBIN 16.1 g/dl (13.5-17.5)
[2022-02-26 13:46] LABS: CK-MB VALUE MASS < 1.0 NG/ML (<3.6); CPK CREATINE PHOSPHOKINASE 35 U/L (39-308); MB/CK RELATIVE INDEX 2.86 (< OR =4)
[2022-02-26 13:58] LABS: ALBUMIN 3.9 GM/DL (3.2-5.2); ALT/SGPT 50 U/L (12-78); BILIRUBIN,DIRECT 0.2 MG/DL (0.0-0.2); BILIRUBIN,TOTAL 0.7 MG/DL (0.2-1.0); BLOOD UREA NITROGEN 22 MG/DL (7-18); CALCIUM LEVEL 9.5 MG/DL (8.8-10.2); CARBON DIOXIDE LEVEL 29 MEQ/L (21-32); CHLORIDE LEVEL 100 MEQ/L (98-107); CREATININE FOR GFR 1.04 MG/DL (0.70-1.30); FREE T4 1.03 NG/DL (0.76-1.46); GLOMERULAR FILTRATION RATE > 60.0 (>42); GLUCOSE, FASTING 162 MG/DL (70-100); LIPASE 183 U/L (73-393); NT-PRO BNP 21 PG/ML (<125); POTASSIUM SERUM 4.5 MEQ/L (3.5-5.1); SODIUM LEVEL 134 MEQ/L (136-145); TOTAL PROTEIN 7.7 GM/DL (6.4-8.2)
[2022-02-26] MEDS ORDERED: ISOVUE-370 76% 100ML VIAL As Ordered ONE (14:11)
[2022-02-26] MEDS ORDERED: NS 1,000 ML IV SCH (14:40)
[2022-02-26 14:53] LABS: CK-MB VALUE MASS < 1.0 NG/ML (<3.6); CPK CREATINE PHOSPHOKINASE 317 U/L (39-308); MB/CK RELATIVE INDEX 0.32 (< OR =4)
[2022-02-26 16:31] VITALS: BP 171/82
== END 2022-02-26 18:09 | disposition home or self-care (01) ==
LOC: M ED 12:13
DX: I26.99 Other pulmonary embolism without acute cor pulmonale (principal); M25.512 Pain in left shoulder; I48.91 Unspecified atrial fibrillation; I10 Essential (primary) hypertension; F41.9 Anxiety disorder, unspecified; M10.9 Gout, unspecified; G47.33 Obstructive sleep apnea (adult) (pediatric); J84.112 Idiopathic pulmonary fibrosis; I42.1 Obstructive hypertrophic cardiomyopathy; I44.0 Atrioventricular block, first degree; Z96.651 Presence of right artificial knee joint; Z79.899 Other long term (current) drug therapy; Z79.01 Long term (current) use of anticoagulants
CPT/HCPCS: 71275; 80048; 80076; 82550; 82553; 83690; 83880; 84439; 84443; 84484; 85025; 93005; 93041; 93970; 94760; 96360; 96361; 99285; Q9967

== ENCOUNTER → 2022-07-05 | Outpatient (CLI) | payer MEDICARE, OTHER ==
[2022-07-05 13:53] LABS: BASO # 0.1 10^3/uL (0.0-0.2); BASO % 0.9 % (0.0-1.0); EOS % 0.2 % (0.0-3.0); HEMATOCRIT 54.3 % (42.0-52.0); HEMOGLOBIN 16.1 g/dl (13.5-17.5); LYMPH # 4.1 10^3/uL (1.5-5.0); LYMPH % 32.2 % (24.0-44.0); MEAN CORPUSCULAR HEMOGLOBIN 19.5 pg (27.0-33.0); MEAN CORPUSCULAR HGB CONC 29.7 g/dl (32.0-36.5); MEAN CORPUSCULAR VOLUME 65.9 fl (80.0-96.0); MONO # 0.9 10^3/uL (0.0-0.8); MONO % 6.8 % (2.0-8.0); NEUTROPHILS # 7.6 10^3/uL (1.5-8.5); NEUTROPHILS % 59.1 % (36.0-66.0); PLATELET COUNT, AUTOMATED 203 10^3/uL (150-450); RED BLOOD COUNT 8.24 10^6/uL (4.30-6.10); WHITE BLOOD COUNT 12.8 10^3/uL (4.0-10.0)
[2022-07-05 14:20] LABS: ALBUMIN 3.9 G/DL (3.2-5.2); ALKALINE PHOSPHATASE 70 U/L (46-116); ALT/SGPT 30 U/L (7.0-40); AST/SGOT 20 U/L (<34); BILIRUBIN,TOTAL 0.7 MG/DL (0.3-1.2); BLOOD UREA NITROGEN 27 MG/DL (9-23); CALCIUM LEVEL 9.4 MG/DL (8.3-10.6); CARBON DIOXIDE LEVEL 29 MMOL/L (20-31); CHLORIDE LEVEL 100 MMOL/L (98-107); CREATININE FOR GFR 0.98 MG/DL (0.70-1.30); GLOMERULAR FILTRATION RATE > 60.0 (>42); GLUCOSE, FASTING 141 MG/DL (74-106); POTASSIUM SERUM 4.8 MMOL/L (3.5-5.1); SODIUM LEVEL 136 MMOL/L (136-145); TOTAL PROTEIN 7.6 G/DL (5.7-8.2)
[2022-07-05 14:25] LABS: ERYTHROCYTE SEDIMENTATION RATE 48 mm/hr (0-20)
== END ==
LOC: M LAB 12:30
PROVIDERS: ATTEND Psychiatry & Neurology Neurology
DX: R51.9 Headache, unspecified (principal)

== ENCOUNTER 2023-01-29 09:00 | Day surgery (SDC) | payer MEDICARE, OTHER ==
[~2023-01-29] VITALS: Ht 172.7 cm; Wt 104.5 kg
[~2023-01-29 09:00] MED LIST changes: -AK-T0.3S OU; +TOBR0.3S30 OU
[2023-01-29] MEDS ORDERED: LR 1,000 ML IV SCH (09:20)
[2023-01-29] MEDS ORDERED: TIRZ5PEN SC (09:24)
[2023-01-29] MEDS ORDERED: LIDOCAINE 2% 100MG/5ML SDV (FOR ANES.) As Ordered ONE (10:25)
[2023-01-29] MEDS ORDERED: propofoL 200 MG/20 ML VIAL As Ordered ONE (10:25)
[2023-01-29] MEDS ORDERED: ePHEDrine SULFATE 25 MG/5 ML(5MG/ML) SYRINGE As Ordered ONE (10:25)
[2023-01-29 10:46] VITALS: BP 117/59; TEMP 97.9; O2SAT 92
== END 2023-01-29 11:00 | disposition home or self-care (01) ==
LOC: M SDC 09:00
PROVIDERS: ATTEND Internal Medicine Cardiovascular Disease
DX: I48.0 Paroxysmal atrial fibrillation (principal); I42.2 Other hypertrophic cardiomyopathy; G47.33 Obstructive sleep apnea (adult) (pediatric); E66.9 Obesity, unspecified; R94.31 Abnormal electrocardiogram [ECG] [EKG]; I50.30 Unspecified diastolic (congestive) heart failure; E11.9 Type 2 diabetes mellitus without complications; J84.10 Pulmonary fibrosis, unspecified; Z79.899 Other long term (current) drug therapy; Z79.01 Long term (current) use of anticoagulants

== ENCOUNTER → 2023-02-13 | Outpatient (REF) | payer MEDICARE, OTHER ==
[~2023-02-13] MED LIST changes: +TIRZ5PEN SC
== END ==
LOC: M LAB REF 16:13
PROVIDERS: ATTEND Surgery
DX: L91.0 Hypertrophic scar (principal)

== ENCOUNTER → 2023-03-25 | Outpatient (CLI) | payer MEDICARE, OTHER | LOC: M PLAIMG 10:43 | PROVIDERS: ATTEND Internal Medicine Pulmonary Disease | DX: J84.10 Pulmonary fibrosis, unspecified (principal) ==

== ENCOUNTER → 2023-05-09 | Outpatient (CLI) | payer MEDICARE, OTHER ==
[2023-05-09 13:31] LABS: FREE T4 0.96 NG/DL (0.89-1.76)
[2023-05-09 13:32] LABS: THYROID STIMULATING HORMONE 2.426 uIU/ML (0.55-4.78)
[2023-05-09 13:37] LABS: FREE T3 3.4 PG/ML (2.3-4.2)
== END ==
LOC: M RAD 11:51
PROVIDERS: ATTEND Family Medicine
DX: M16.11 Unilateral primary osteoarthritis, right hip (principal); E04.1 Nontoxic single thyroid nodule

== ENCOUNTER → 2023-05-22 | Outpatient (CLI) | payer MEDICARE, OTHER | LOC: M RAD 12:08 | PROVIDERS: ATTEND Family Medicine | DX: E04.2 Nontoxic multinodular goiter (principal) ==

== ENCOUNTER 2023-06-16 07:26 | Emergency (ER) | payer MEDICARE, OTHER ==
[~2023-06-16] VITALS: Ht 172.7 cm; Wt 104.6 kg
[~2023-06-16 07:26] MED LIST changes: -ALLO300T2; -AMLO1TAB24; +AMLO1TAB24 PO; -ESOM40CA35; +ESOM40CA35 PO; -SPIR-10; -XIID5DRO; +XIID5DRO OS
[2023-06-16 08:39] LABS: BASO # 0.1 10^3/uL (0.0-0.2); BASO % 0.7 % (0.0-1.0); EOS % 0.1 % (0.0-3.0); HEMATOCRIT 50.6 % (42.0-52.0); HEMOGLOBIN 15.6 g/dl (13.5-17.5); LYMPH # 4.7 10^3/uL (1.5-5.0); MEAN CORPUSCULAR HEMOGLOBIN 19.8 pg (27.0-33.0); MEAN CORPUSCULAR HGB CONC 30.8 g/dl (32.0-36.5); MEAN CORPUSCULAR VOLUME 64.4 fl (80.0-96.0); MONO # 0.9 10^3/uL (0.0-0.8); MONO % 6.8 % (2.0-8.0); NEUTROPHILS # 7.2 10^3/uL (1.5-8.5); NEUTROPHILS % 55.9 % (36.0-66.0); PLATELET COUNT, AUTOMATED 192 10^3/uL (150-450); RED BLOOD COUNT 7.86 10^6/uL (4.30-6.10); WHITE BLOOD COUNT 12.9 10^3/uL (4.0-10.0)
[2023-06-16 09:10] LABS: BLOOD UREA NITROGEN 19 MG/DL (9-23); CALCIUM LEVEL 8.4 MG/DL (8.3-10.6); CARBON DIOXIDE LEVEL 26 MMOL/L (20-31); CHLORIDE LEVEL 107 MMOL/L (98-107); CREATININE FOR GFR 0.84 MG/DL (0.70-1.30); GLOMERULAR FILTRATION RATE > 60.0 (>42); GLUCOSE, FASTING 132 MG/DL (74-106); MAGNESIUM LEVEL 1.8 MG/DL (1.8-2.4); POTASSIUM SERUM 5.2 MMOL/L (3.5-5.1); SODIUM LEVEL 139 MMOL/L (136-145)
[2023-06-16 09:13] LABS: THYROID STIMULATING HORMONE 2.589 uIU/ML (0.55-4.78)
[2023-06-16 12:24] VITALS: BP 116/68; TEMP 97; O2SAT 96
== END 2023-06-16 12:36 | disposition home or self-care (01) ==
LOC: M ED 07:26
DX: I48.92 Unspecified atrial flutter (principal); I48.91 Unspecified atrial fibrillation; I27.20 Pulmonary hypertension, unspecified; K21.9 Gastro-esophageal reflux disease without esophagitis; J44.9 Chronic obstructive pulmonary disease, unspecified; E66.9 Obesity, unspecified; Z79.01 Long term (current) use of anticoagulants; Z79.899 Other long term (current) drug therapy

== ENCOUNTER → 2023-09-23 | Outpatient (CLI) | payer MEDICARE, OTHER ==
[~2023-09-23] MED LIST changes: +ESOM1CAP20; -ESOM1CAP5
== END ==
LOC: M RAD 11:18
PROVIDERS: ATTEND Internal Medicine Pulmonary Disease
DX: J84.10 Pulmonary fibrosis, unspecified (principal); R91.8 Other nonspecific abnormal finding of lung field

== ENCOUNTER → 2023-09-25 | Outpatient (REF) | payer MEDICARE, OTHER | LOC: M LAB REF 12:59 | PROVIDERS: ATTEND Internal Medicine Pulmonary Disease | DX: R05.9 Cough, unspecified (principal) ==

== ENCOUNTER → 2023-09-27 | Outpatient (REF) | payer MEDICARE, OTHER | LOC: M LAB REF 17:07 | PROVIDERS: ATTEND Internal Medicine Pulmonary Disease | DX: R05.9 Cough, unspecified (principal); J84.10 Pulmonary fibrosis, unspecified ==

== ENCOUNTER → 2024-03-09 | Outpatient (CLI) | payer MEDICARE, OTHER | LOC: M RAD 12:49 | PROVIDERS: ATTEND Internal Medicine Pulmonary Disease | DX: J84.10 Pulmonary fibrosis, unspecified (principal) ==

== ENCOUNTER → 2024-03-19 | Outpatient (CLI) | payer MEDICARE, OTHER | LOC: M PLAIMG 11:02 | PROVIDERS: ATTEND Internal Medicine Pulmonary Disease | DX: J84.10 Pulmonary fibrosis, unspecified (principal) ==

== ENCOUNTER → 2024-03-24 | Outpatient (CLI) | payer MEDICARE, OTHER | LOC: M WUC 10:40 | PROVIDERS: ATTEND Physician Assistant | DX: S60.221A Contusion of right hand, initial encounter (principal); S60.211A Contusion of right wrist, initial encounter; W01.10XA Fall on same level from slipping, tripping and stumbling with subsequent striking against unspecified object, initial encounter; Y92.009 Unspecified place in unspecified non-institutional (private) residence as the place of occurrence of the external cause ==

== ENCOUNTER 2024-05-25 08:49 | Day surgery (SDC) | payer MEDICARE, OTHER ==
[~2024-05-25] VITALS: Ht 172.7 cm; Wt 104.3 kg
[~2024-05-25 08:49] MED LIST changes: +CELE0.09 PO; +DULO1CAP4 PO; +FLEC25TA PO; +GABA-1172 PO; +LIDOCAINE 2% 100MG/5ML SDV (FOR ANES.) As Ordered ONE; +SUCR1TAB56 PO; +fentaNYL 100 MCG/2 ML INJECTION As Ordered ONE; +propofoL 200 MG/20 ML VIAL As Ordered ONE
[2024-05-25] MEDS ORDERED: ePHEDrine SULFATE 25 MG/5 ML(5MG/ML) SYRINGE As Ordered ONE (09:50)
[2024-05-25 10:17] VITALS: TEMP 98.6
[2024-05-25 10:44] VITALS: BP 108/56; O2SAT 96
== END 2024-05-25 10:59 | disposition home or self-care (01) ==
LOC: M OPP 08:49
PROVIDERS: ATTEND Internal Medicine Gastroenterology
DX: K64.0 First degree hemorrhoids (principal); Z98.0 Intestinal bypass and anastomosis status; Z86.0100 Personal history of colon polyps, unspecified; R12 Heartburn; G47.30 Sleep apnea, unspecified; I48.91 Unspecified atrial fibrillation; Z79.01 Long term (current) use of anticoagulants; Z79.4 Long term (current) use of insulin; J44.9 Chronic obstructive pulmonary disease, unspecified
CPT/HCPCS: 43239; 45378; 88305; J3010

== ENCOUNTER → 2024-07-28 | Outpatient (CLI) | payer MEDICARE, OTHER ==
[~2024-07-28] MED LIST changes: -LIDOCAINE 2% 100MG/5ML SDV (FOR ANES.) As Ordered ONE; -fentaNYL 100 MCG/2 ML INJECTION As Ordered ONE; -propofoL 200 MG/20 ML VIAL As Ordered ONE
[2024-07-28 13:53] LABS: HEMATOCRIT 48.3 % (42.0-52.0); HEMOGLOBIN 14.4 g/dl (13.5-17.5); MEAN CORPUSCULAR HEMOGLOBIN 19.9 pg (27.0-33.0); MEAN CORPUSCULAR HGB CONC 29.8 g/dl (32.0-36.5); MEAN CORPUSCULAR VOLUME 66.6 fl (80.0-96.0); PLATELET COUNT, AUTOMATED 152 10^3/uL (150-450); RED BLOOD COUNT 7.25 10^6/uL (4.30-6.10); WHITE BLOOD COUNT 12.5 10^3/uL (4.0-10.0)
[2024-07-28 14:14] LABS: BLOOD UREA NITROGEN 15 MG/DL (9-23); CALCIUM LEVEL 8.9 MG/DL (8.3-10.6); CARBON DIOXIDE LEVEL 28 MMOL/L (20-31); CHLORIDE LEVEL 105 MMOL/L (98-107); CREATININE FOR GFR 0.73 MG/DL (0.70-1.30); GLOMERULAR FILTRATION RATE > 90.0 (>42); GLUCOSE, FASTING 117 MG/DL (74-106); POTASSIUM SERUM 4.6 MMOL/L (3.5-5.1); SODIUM LEVEL 141 MMOL/L (136-145)
[2024-07-28 14:18] LABS: ATYPICAL LYMPH 6 % (0-5); BASOPHILS 1 % (0-1); EOSINOPHILS 5 % (0-3); LYMPHOCYTES 30 % (16-44); MICROCYTOSIS 3+; MONOCYTES 7 % (0-5); NEUTROPHILS 51 % (28-66); PLATELET ESTIMATE NORMAL (NORMAL)
[2024-07-28 14:19] LABS: ANISOCYTOSIS 2+; HYPOCHROMASIA 2+
== END ==
LOC: M LAB 13:08
PROVIDERS: ATTEND Internal Medicine Pulmonary Disease
DX: J47.9 Bronchiectasis, uncomplicated (principal)

== ENCOUNTER → 2024-08-12 | Outpatient (CLI) | payer MEDICARE, OTHER ==
[~2024-08-12] MED LIST changes: +LIFI1DRO4 OS; -XIID5DRO OS
== END ==
LOC: M EKG 09:56
PROVIDERS: ATTEND Internal Medicine Cardiovascular Disease
DX: I48.0 Paroxysmal atrial fibrillation (principal); I44.0 Atrioventricular block, first degree

== ENCOUNTER → 2025-02-15 | Outpatient (CLI) | payer MEDICARE, OTHER ==
[~2025-02-15] MED LIST changes: -COLC0.6T47; +COLC0.6T53
== END ==
LOC: M PLAIMG 10:38
PROVIDERS: ATTEND Internal Medicine Cardiovascular Disease
DX: I71.21 Aneurysm of the ascending aorta, without rupture (principal); I50.32 Chronic diastolic (congestive) heart failure; I27.81 Cor pulmonale (chronic)

== ENCOUNTER → 2025-02-26 | Outpatient (CLI) | payer MEDICARE, OTHER | LOC: M RAD 14:41 | PROVIDERS: ATTEND Internal Medicine Pulmonary Disease | DX: J84.10 Pulmonary fibrosis, unspecified (principal); I77.810 Thoracic aortic ectasia; I25.10 Atherosclerotic heart disease of native coronary artery without angina pectoris; I25.84 Coronary atherosclerosis due to calcified coronary lesion ==

== ENCOUNTER → 2025-03-08 | Outpatient (CLI) | payer MEDICARE, OTHER ==
[2025-03-15 16:08] LABS: ASPERGILLUS FUMIGATUS AB NEGATIVE (NEGATIVE); MICROPOLYSPORA FAENI AB NEGATIVE (NEGATIVE); PIGEON SERUM AB NEGATIVE (NEGATIVE); S VIRIDIS NEGATIVE (NEGATIVE); T CANDIDUS NEGATIVE (NEGATIVE); THERMOACTINOMYCES VULGARIS NEGATIVE (NEGATIVE)
== END ==
LOC: M LAB 14:22
PROVIDERS: ATTEND Allergy & Immunology Allergy
DX: J84.112 Idiopathic pulmonary fibrosis (principal); E78.00 Pure hypercholesterolemia, unspecified; I48.0 Paroxysmal atrial fibrillation

== ENCOUNTER → 2025-03-08 | Outpatient (CLI) | payer MEDICARE, OTHER ==
[2025-03-08 15:56] LABS: ALT/SGPT 35.0 U/L (7.0-40); AST/SGOT 23.0 U/L (<34); CHOLESTEROL LEVEL 131.0 MG/DL (<200); CHOLESTEROL RISK RATIO 4.25 (<5); LDL CHOLESTEROL 83.0 MG/DL (<100); MAGNESIUM LEVEL 1.9 MG/DL (1.8-2.4); NON-HDL-C 100.2 MG/DL; TRIGLYCERIDES LEVEL 86.0 MG/DL (<150)
== END ==
LOC: M LAB 14:25
PROVIDERS: ATTEND Physician Assistant
DX: E78.00 Pure hypercholesterolemia, unspecified (principal); I48.0 Paroxysmal atrial fibrillation